=== PATIENT | female | born 1960 | race Caucasian/White ===

== ENCOUNTER 2017-03-19 16:09 | Emergency (ER) | payer OTHER, MEDICARE, MEDICAID ==
[2017-03-19] MEDS ORDERED: KETOROLAC 60 MG/2 ML VIAL IM STA (17:03)
[2017-03-19] MEDS ORDERED: HYDROmorphone 1 MG/ML SYRINGE IM STA (17:03)
[2017-03-19] MEDS ORDERED: HYDROmorphone 1 MG/ML SYRINGE ONE (17:08)
[2017-03-19] MEDS ORDERED: KETOROLAC 60 MG/2 ML VIAL ONE (17:08)
== END 2017-03-19 18:05 | disposition home or self-care (01) ==
DX: S63.641A Sprain of metacarpophalangeal joint of right thumb, initial encounter (principal); S63.642A Sprain of metacarpophalangeal joint of left thumb, initial encounter; S29.012A Strain of muscle and tendon of back wall of thorax, initial encounter; V49.40XA Driver injured in collision with unspecified motor vehicles in traffic accident, initial encounter; F17.200 Nicotine dependence, unspecified, uncomplicated
CPT/HCPCS: 73130; 96372; 99283; 99284; J1170

== ENCOUNTER 2017-06-20 15:41 | Emergency (ER) | payer MEDICARE, MEDICAID ==
[2017-06-20] MEDS ORDERED: diazePAM INJ 5 MG/ML SYRINGE IM STA (16:09)
[2017-06-20] MEDS ORDERED: HYDROmorphone 1 MG/ML SYRINGE IM STA (16:09)
[2017-06-20] MEDS ORDERED: KETOROLAC 60 MG/2 ML VIAL IM STA (16:09)
--- NOTE | 2017-06-20 16:11 | ED Physician Documentation ---
PD HPI BACK PAIN - Stated complaint Stated Complaint: LEG PAIN - Chief complaint Chief Complaint: Ext Problem - History obtained from History obtained from: Patient - History of Present Illness Timing - onset: Other (56-year-old woman with history of sciatica presents with 2 days of pain in the right lower back radiating to the right hip with hyperesthesia in the right leg, but there is no associated saddle anesthesia, bowel or bladder incontinence, or fever.) Review of Systems Constitutional: denies: Fever, Chills Cardiac: denies: Chest pain / pressure, Palpitations Respiratory: denies: Dyspnea, Cough GI: denies: Abdominal Pain, Nausea PD PAST MEDICAL HISTORY - Past Medical History Past Medical History: Yes Cardiovascular: None Respiratory: None Neuro: Headache/migraine, Other Endocrine/Autoimmune: None GI: Chronic diarrhea, Chronic constipation 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 HEENT: None Psych: Anxiety Musculoskeletal: Chronic back pain Derm: None - Past Surgical History Past Surgical History: Yes General: Colonoscopy, EGD Ortho: Carpal Tunnel surgery /PUMP SERVICER HELPER: Tubal ligation HEENT: Tonsil/Adenoidectomy - Present Medications Home Medications: Ambulatory Orders Medication Instructions Recorded Confirmed Simvastatin 20 mg PO QPM 07/15/13 06/16/16 Omeprazole 20 mg PO DAILY 01/04/14 06/16/16 Ondansetron Odt [Zofran] 4 mg TL Q6H PRN #10 tablet 01/01/16 06/16/16 Fluticasone [Flonase] 1 spray INH DAILY 02/13/16 06/16/16 Bacillus Coagulans [Probiotic] 1 each PO 06/16/16 Calcium Carbonate/Vitamin D3 1 each PO 06/16/16 [Calcium 500 + Vit D Caplet] Oxycodone HCl/Acetaminophen 1 - 2 tab PO Q4H PRN #7 tablet 06/16/16 [Percocet 5-325 mg Tablet] Wheat Dextrin [Benefiber] 1 each PO DAILY 06/16/16 06/16/16 Clindamycin [Cleocin] 300 mg PO Q6H 10 Days 09/25/16 Ondansetron HCl [Zofran] 4 mg PO Q6H PRN #10 tablet 09/25/16 Oxycodone HCl/Acetaminophen 1 - 2 tab PO Q4H PRN #15 tablet 09/25/16 [Percocet 5-325 mg Tablet] Sumatriptan Succinate [Imitrex] 50 mg PO DAILY PRN #10 tablet 09/25/16 Diazepam 5 mg PO TID PRN #15 tablet 03/19/17 Naproxen [Naprosyn] 500 mg PO BID #20 tablet 03/19/17 Oxycodone HCl/Acetaminophen 1 each PO Q6H PRN #20 tablet 03/19/17 [Percocet 5-325 mg Tablet] Oxycodone HCl/Acetaminophen 1 - 2 tab PO Q4H PRN #15 tablet 06/20/17 [Percocet 5-325 mg Tablet] diazePAM [Valium] 5 mg PO TID PRN #15 tablet 06/20/17 predniSONE [Deltasone] 60 mg PO DAILY 5 Days 06/20/17 - Allergies Allergies/Adverse Reactions: Allergies Allergy/AdvReac Type Severity Reaction Status Date / Time Penicillins Allergy Severe throat Verified 06/20/17 15:56 swelling - Social History Does the pt smoke?: Yes Smoking Status: Current every day smoker Does the pt drink ETOH?: No Does the pt have substance abuse?: No - Immunizations Immunizations are current?: Yes - POLST Patient has POLST: No PD ED PE NORMAL - Vitals Vital signs reviewed: Yes - General General: Alert and oriented X 3, Other (Uncomfortable, most comfortable in a left lateral decubitus position with left knee and hip flexed.) - Abdomen Abdomen: Normal bowel sounds, Soft, Non tender - Back Back: Other (Tender in the right sciatic notch) - Derm Derm: Normal color, Warm and dry - Extremities Extremities: Other (She has diminished sensation over the anterior right thigh and medial right calf with hyperesthesia in the lateral right calf. She has diminished but not absent right patellar reflex.) - Neuro Neuro: Alert and oriented X 3, Normal speech - Psych Psych: Normal mood, Normal affect Results - Vitals Vitals: Vital Signs - 24 hr 06/20/17 15:53 Temperature 36.9 C Heart Rate 75 Respiratory 18 Rate Blood Pressure 105/74 O2 Saturation 99 Oxygen O2 Source Room air PD MEDICAL DECISION MAKING - ED course ED course: 56-year-old woman presents with classic signs and symptoms of lumbar radiculopathy/sciatica without evidence of central cord compromise or infection. Departure - Departure Disposition: 01 Home, Self Care Clinical Impression: Back pain of lumbar region with sciatica Condition: Good Record reviewed to determine appropriate education?: Yes Instructions: ED Sciatica Prescriptions: predniSONE [Deltasone] 60 mg PO DAILY 5 Days Oxycodone HCl/Acetaminophen [Percocet 5-325 mg Tablet] 1 - 2 tab PO Q4H PRN #15 tablet PRN Reason: Pain diazePAM [Valium] 5 mg PO TID PRN #15 tablet PRN Reason: Spasms Comments: Call your doctor to arrange a follow-up appointment, make the next available appointment. In the interim, return anytime if worse or if new symptoms develop. Do not drink or drive while taking narcotic pain medication. Note that many narcotic pain relievers also contain Tylenol/acetaminophen. Please ensure that your total dose of acetaminophen from all sources does not exceed 3 g (3000 mg) per day. You may get constipated while on this medication. Take a stool softener such as Colace twice a day while you are on it. Also add an meul-[id number] laxative such as senna or MiraLAX on any day that you do not have a bowel movement. If you received a narcotic pain medication or sedative while in the emergency department, do not drive for the next 24 hours.
[2017-06-20] MEDS ORDERED: HYDROmorphone 1 MG/ML SYRINGE ONE (16:21)
[2017-06-20] MEDS ORDERED: KETOROLAC 60 MG/2 ML VIAL ONE (16:22)
[2017-06-20] MEDS ORDERED: diazePAM INJ 5 MG/ML SYRINGE ONE (16:22)
[2017-06-20 16:47] VITALS: BP 113/70
== END 2017-06-20 16:50 | disposition home or self-care (01) ==
LOC: ED 15:41
DX: M54.41 Lumbago with sciatica, right side (principal); F17.200 Nicotine dependence, unspecified, uncomplicated; G89.29 Other chronic pain
CPT/HCPCS: 96372; 99283; J1170

== ENCOUNTER 2017-11-13 12:21 | Outpatient (CLI) | payer MEDICARE, MEDICAID | END 2017-11-13 12:22 | disposition home or self-care (01) | LOC: EMS 12:21 | PROVIDERS: ATTEND Surgery | DX: R10.9 Unspecified abdominal pain (principal) | CPT/HCPCS: A0425; A0429 ==

== ENCOUNTER 2017-11-13 12:43 | Emergency (ER) | payer MEDICARE, MEDICAID ==
--- NOTE | 2017-11-13 13:09 | ED Physician Documentation ---
PD HPI URI - Stated complaint Stated Complaint: SICK - Chief complaint Chief Complaint: General - History obtained from History obtained from: Patient - History of Present Illness Timing - onset: How many weeks ago (1) Timing duration: Weeks (1) Timing details: Gradual onset, Still present Associated symptoms: No: Fever, Chills Contributing factors: No: Sick contact Improves by: No: Rest, Medication Similar symptoms before: Has not had sx before Recently seen: Not recently seen Review of Systems Constitutional: reports: Fever, Chills, Myalgias Nose: reports: Congestion. 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 : None HEENT: None Psych: Anxiety Musculoskeletal: Chronic back pain Derm: None - Past Surgical History Past Surgical History: Yes General: Colonoscopy, EGD Ortho: Carpal Tunnel surgery /RN CLINICAL DOCUMENTATION: Tubal ligation HEENT: Tonsil/Adenoidectomy - Present Medications Home Medications: Ambulatory Orders Medication Instructions Recorded Confirmed Simvastatin 20 mg PO QPM 07/15/13 11/13/17 Fluticasone [Flonase] 1 spray INH DAILY 02/13/16 11/13/17 Bacillus Coagulans [Probiotic] 1 each PO DAILY 06/16/16 11/13/17 Calcium Carbonate/Vitamin D3 1 each PO 06/16/16 [Calcium 500 + Vit D Caplet] Wheat Dextrin [Benefiber] 1 each PO DAILY 06/16/16 11/13/17 Gabapentin [Gabapentin] 300 mg PO BID 06/20/17 11/13/17 Tizanidine HCl [Tizanidine HCl] 4 mg PO DAILY 06/20/17 11/13/17 Albuterol Sulf [Ventolin Hfa 1 - 2 puffs INH Q4HR PRN #1 inhaler 11/13/17 Inhaler] Benzonatate [Tessalon] 100 mg PO TID PRN #25 capsule 11/13/17 Dexamethasone [Decadron] 4 mg PO DAILY #5 tablet 11/13/17 Doxycycline Monohydrate 100 mg PO BID #14 tablet 11/13/17 Oxycodone HCl/Acetaminophen 1 each PO Q6H PRN #15 tablet 11/13/17 [Percocet 5-325 mg Tablet] diazePAM [Diazepam] 5 mg PO DAILY 11/13/17 11/13/17 - Allergies Allergies/Adverse Reactions: Allergies Allergy/AdvReac Type Severity Reaction Status Date / Time Penicillins Allergy Severe throat Verified 11/13/17 13:12 swelling - Social History Does the pt smoke?: Yes Smoking Status: Current every day smoker Does the pt drink ETOH?: No Does the pt have substance abuse?: No - Immunizations Immunizations are current?: Yes - POLST Patient has POLST: No PD ED PE NORMAL - Vitals Vital signs reviewed: Yes - General General: Alert and oriented X 3, Well developed/nourished - HEENT HEENT: Pharynx benign - Neck Neck: Supple, no meningeal sign, No adenopathy - Cardiac Cardiac: RRR, No murmur - Respiratory Respiratory: Clear bilaterally - Abdomen Abdomen: Soft, Non tender - Back Back: No CVA TTP - Derm Derm: Normal color, Warm and dry - Extremities Extremities: No tenderness to palpate, Normal ROM s pain - Neuro Neuro: Alert and oriented X 3, No motor deficit, Normal speech Results - Vitals Vitals: Vital Signs - 24 hr 11/13/17 11/13/17 11/13/17 12:45 13:55 15:30 Temperature 36.7 C 36.5 C Heart Rate 95 57 L 55 L Respiratory 16 18 16 Rate Blood Pressure 122/62 117/75 O2 Saturation 99 97 Oxygen O2 Source Room air - Labs Labs: Microbiology 11/13/17 14:38 Urine Culture - Preliminary Urine,Clean Catch Escherichia Coli Laboratory Tests 11/13/17 14:38 Urine Color YELLOW Urine Clarity SL. CLOUDY Urine pH 7.0 Ur Specific [place] 1.015 Urine Protein NEGATIVE Urine Glucose (UA) NEGATIVE Urine Ketones NEGATIVE Urine Occult Blood NEGATIVE Urine Nitrite POSITIVE H Urine Bilirubin NEGATIVE Urine Urobilinogen 0.2 (NORMAL) Ur Leukocyte Esterase NEGATIVE Urine RBC None Seen Urine WBC 6-10 H Ur Squamous Epith Cells NONE SEEN Urine Bacteria Many H Ur Microscopic Review INDICATED Urine Culture Comments INDICATED PD MEDICAL DECISION MAKING - ED course Complexity details: considered differential, d/w patient Departure - Departure Disposition: 01 Home, Self Care Clinical Impression: Bronchitis, Chest pain, pleuritic UTI (urinary tract infection) Qualifiers: Urinary tract infection type: acute cystitis Hematuria presence: without hematuria Qualified Code(s): N30.00 - Acute cystitis without hematuria Condition: Stable Record reviewed to determine appropriate education?: Yes Instructions: ED Bronchitis Asthmatic, ED UTI Cystitis Female Follow-Up: Forest Poe MD [Primary Care Provider] - Prescriptions: Albuterol Sulf [Ventolin Hfa Inhaler] 1 - 2 puffs INH Q4HR PRN #1 inhaler PRN Reason: Shortness Of Air/Wheezing Benzonatate [Tessalon] 100 mg PO TID PRN #25 capsule PRN Reason: Cough Dexamethasone [Decadron] 4 mg PO DAILY #5 tablet Doxycycline Monohydrate 100 mg PO BID #14 tablet Oxycodone HCl/Acetaminophen [Percocet 5-325 mg Tablet] 1 each PO Q6H PRN #15 tablet PRN Reason: Pain Comments: Albuterol inhaler 2 puffs 4 times daily for 1-2 weeks. Tessalon for cough; Percocet for cough and pain as needed. Decadron for bronchial inflammation. Doxycycline antibiotic to help with bronchitis and UTI. Recheck if not improved over the next few days. Discharge Date/Time: 11/13/17 15:32
[2017-11-13] MEDS ORDERED: oxyCOD/ACETAMIN 5 MG/325 MG TABLET PO STA (13:29)
[2017-11-13] MEDS ORDERED: ALBUTEROL NEB 2.5 MG/3 ML INH STA (13:30)
[2017-11-13] MEDS ORDERED: DEXAMETHASONE 10 MG/ML VIAL PO STA (13:31)
[2017-11-13] MEDS ORDERED: BENZONATATE 100 MG CAPSULE PO STA (13:33)
[2017-11-13] MEDS ORDERED: CHERRY SYRUP 10 ML UDC PO ONE (14:09)
--- NOTE | 2017-11-13 14:10 | XRAY Preliminary Report ---
Exam: XR CHEST 2 VIEW PA/LAT IMPRESSION: Negative 2-view chest radiography. [facility] SITE ID: [id number]
--- NOTE | 2017-11-13 14:12 | XRAY Report ---
EXAM: CHEST RADIOGRAPHY EXAM DATE: 11/13/2017 01:56 PM. CLINICAL HISTORY: Cough and wheezing for a week. COMPARISON: Frontal chest 08/22/2014. TECHNIQUE: 2 views. FINDINGS: Lungs/Pleura: No focal opacities evident. No pleural effusion. No pneumothorax. Normal volumes. Mediastinum: Heart and mediastinal contours are unremarkable. IMPRESSION: Negative 2-view chest radiography. [facility] Referring Provider Line: [phone] SITE ID: [id number]
[2017-11-13 14:50] LABS: BILIRUBIN,URINE NEGATIVE (NEGATIVE)
[2017-11-13 14:51] LABS: UA w/ MICROSCOPIC CHARGE YES
[2017-11-13 15:01] LABS: UR CULTURE IF IND INDICATED
[2017-11-13 15:31] VITALS: BP 117/75
== END 2017-11-13 15:32 | disposition home or self-care (01) ==
LOC: EDUNIT# → ED 12:43
DX: J40 Bronchitis, not specified as acute or chronic (principal); N30.00 Acute cystitis without hematuria; F17.200 Nicotine dependence, unspecified, uncomplicated
CPT/HCPCS: 71020; 81001; 87086; 87181; 94640; 99283; A9270; J7613; 81003

== ENCOUNTER 2017-11-23 14:58 | Emergency (ER) | payer MEDICARE, MEDICAID ==
[2017-11-23 16:35] LABS: BASOPHILS # (AUTO) 0.1 10^3/uL (0.0-0.1); EOSINOPHILS # (AUTO) 0.1 10^3/uL (0.0-0.7); HGB - HEMOGLOBIN 14.9 g/dL (12.0-16.0); LYMPHOCYTES # (AUTO) 2.7 10^3/uL (1.5-3.5); LYMPHOCYTES % (AUTO) 31.3 %; MEAN CORPUSCULAR HEMOGLOBIN 30.4 pg (27.0-31.0); MEAN CORPUSCULAR HGB CONC 33.2 g/dL (32.0-36.0); MEAN CORPUSCULAR VOLUME 91.6 fL (81.0-99.0); MONOCYTES # (AUTO) 0.6 10^3/uL (0.0-1.0); MONOCYTES % (AUTO) 7.3 %; NEUTROPHILS # (AUTO) 5.2 10^3/uL (1.5-6.6); NEUTROPHILS % (AUTO) 59.4 %; PLT - PLATELET COUNT 231 10^3/uL (130-450); RED BLOOD COUNT 4.89 10^6/uL (4.20-5.40); RED CELL DISTRIBUTION WIDTH 14.3 % (12.0-15.0); WHITE BLOOD COUNT 8.7 x10^3/uL (4.8-10.8)
[2017-11-23 16:39] LABS: ALBUMIN 4.2 g/dL (3.2-5.5); ALBUMIN/GLOBULIN RATIO 1.2 (1.0-2.2); BILIRUBIN,TOTAL 0.6 mg/dL (0.2-1.0); CALCIUM 9.2 mg/dL (8.5-10.3); CREATININE 0.8 mg/dL (0.4-1.0); TOTAL PROTEIN 7.7 g/dL (6.7-8.2)
[2017-11-23 17:36] LABS: BILIRUBIN,URINE NEGATIVE (NEGATIVE); GLUCOSE, URINE (UA) NEGATIVE (NEGATIVE); KETONES,URINE (UA) NEGATIVE (NEGATIVE); LEUKOCYTE ESTERASE, URINE NEGATIVE (NEGATIVE); NITRITE,URINE NEGATIVE (NEGATIVE); OCCULT BLOOD,URINE NEGATIVE (NEGATIVE); PH,URINE 6.5 PH (5.0-7.5); PROTEIN,URINE NEGATIVE (NEGATIVE); UROBILINOGEN,URINE 0.2 (NORMAL) E.U./dL (NORMAL)
[2017-11-23 17:37] LABS: CLARITY,URINE CLEAR (CLEAR)
--- NOTE | 2017-11-23 17:49 | ED Physician Documentation ---
PD HPI ABD PAIN - Stated complaint Stated Complaint: ABD PX, BACK PX, FEMALE - Chief complaint Chief Complaint: Abd Pain - History obtained from History obtained from: Patient - History of Present Illness Timing - onset: How many days ago (2) Timing - duration: Days (2) Timing - details: Gradual onset Pain level max: 9 Pain level now: 6 Quality: Aching, Pain Location: RLQ Radiation: Right flank Improved by: Laying still Worsened by: Moving, Palpation Associated symptoms: Nausea. No: Fever, Vomiting, Hematemesis, Diarrhea, Constipation, Melena, Hematochezia, Dysuria, Hematuria, Chest pain, Dizzy, Vaginal dc Similar symptoms before: Diagnosis (states recently diagnosed with UTI and finished abx 4 days ago) Recently seen: Other (called PCP and told to come here for eval.) Review of Systems Constitutional: denies: Fever, Chills Ears: denies: Ear pain Nose: denies: Rhinorrhea / runny nose, Congestion Throat: denies: Sore throat Cardiac: denies: Chest pain / pressure Respiratory: denies: Cough GI: denies: Constipation, Diarrhea, Hematemesis, Bloody / black stool : denies: Dysuria, Frequency, Hesitancy Skin: denies: Rash Musculoskeletal: denies: Neck pain, Back pain PD PAST MEDICAL HISTORY - Past Medical History Cardiovascular: None Respiratory: None Neuro: Headache/migraine, Other Endocrine/Autoimmune: None GI: Chronic diarrhea, Chronic constipation 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 HEENT: None Psych: Anxiety Musculoskeletal: Chronic back pain Derm: None - Past Surgical History Past Surgical History: Yes General: Colonoscopy, EGD Ortho: Carpal Tunnel surgery /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: Tubal ligation HEENT: Tonsil/Adenoidectomy - Present Medications Home Medications: Ambulatory Orders Medication Instructions Recorded Confirmed Simvastatin 20 mg PO QPM 07/15/13 11/23/17 Fluticasone [Flonase] 1 spray INH DAILY 02/13/16 11/23/17 Bacillus Coagulans [Probiotic] 1 each PO DAILY 06/16/16 11/23/17 Calcium Carbonate/Vitamin D3 1 each PO 06/16/16 [Calcium 500 + Vit D Caplet] Wheat Dextrin [Benefiber] 1 each PO DAILY 06/16/16 11/23/17 Gabapentin [Gabapentin] 300 mg PO BID 06/20/17 11/23/17 Tizanidine HCl [Tizanidine HCl] 4 mg PO DAILY 06/20/17 11/23/17 Albuterol Sulf [Ventolin Hfa 1 - 2 puffs INH Q4HR PRN #1 inhaler 11/13/17 Inhaler] Benzonatate [Tessalon] 100 mg PO TID PRN #25 capsule 11/13/17 11/23/17 Dexamethasone [Decadron] 4 mg PO DAILY #5 tablet 11/13/17 11/23/17 Doxycycline Monohydrate 100 mg PO BID #14 tablet 11/13/17 11/23/17 Oxycodone HCl/Acetaminophen 1 each PO Q6H PRN #15 tablet 11/13/17 11/23/17 [Percocet 5-325 mg Tablet] diazePAM [Diazepam] 5 mg PO DAILY 11/13/17 11/23/17 Dicyclomine [Bentyl] 10 mg PO QID PRN #30 capsule 11/23/17 - Allergies Allergies/Adverse Reactions: Allergies Allergy/AdvReac Type Severity Reaction Status Date / Time Penicillins Allergy Severe throat Verified 11/13/17 13:12 swelling - Social History Does the pt smoke?: Yes Smoking Status: Current every day smoker Does the pt drink ETOH?: No Does the pt have substance abuse?: No - Immunizations Immunizations are current?: Yes - POLST Patient has POLST: No PD ED PE NORMAL - Vitals Vital signs reviewed: Yes - General General: Alert and oriented X 3, No acute distress - HEENT HEENT: PERRL, Moist mucous membranes, Pharynx benign - Neck Neck: Supple, no meningeal sign - Cardiac Cardiac: RRR, Strong equal pulses - Respiratory Respiratory: No respiratory distress, Clear bilaterally - Abdomen Abdomen: Soft, Non distended, Other (TTP RLQ at McBurney's point, no peritoneal signs.) - Back Back: Other (R CVAT) - Derm Derm: Warm and dry - Neuro Neuro: Alert and oriented X 3 - Psych Psych: Normal mood, Normal affect Results - Vitals Vitals: Vital Signs - 24 hr 11/23/17 11/23/17 11/23/17 15:15 17:22 19:50 Temperature 36.2 C L Heart Rate 67 48 L 53 L Respiratory 20 20 18 Rate Blood Pressure 97/69 139/69 H 137/65 H O2 Saturation 100 100 100 Oxygen O2 Source Room air - Labs Labs: Laboratory Tests 11/23/17 11/23/17 11/23/17 16:20 16:20 17:20 WBC 8.7 RBC 4.89 Hgb 14.9 Hct 44.8 MCV 91.6 MCH 30.4 MCHC 33.2 RDW 14.3 Plt Count 231 MPV 10.0 Neut # 5.2 Lymph # 2.7 [place] # 0.6 Eos # 0.1 Baso # 0.1 Absolute Nucleated RBC 0.00 Nucleated RBC % 0.0 Sodium 140 Potassium 3.8 Chloride 104 Carbon Dioxide 29 Anion Gap 7.0 BUN 10 Creatinine 0.8 Estimated GFR (MDRD) 74 L Glucose 97 Calcium 9.2 Total Bilirubin 0.6 AST 13 ALT 11 Alkaline Phosphatase 90 Total Protein 7.7 Albumin 4.2 Globulin 3.5 Albumin/Globulin Ratio 1.2 Lipase 44 Urine Color YELLOW Urine Clarity CLEAR Urine pH 6.5 Ur Specific [place] <=1.005 Urine Protein NEGATIVE Urine Glucose (UA) NEGATIVE Urine Ketones NEGATIVE Urine Occult Blood NEGATIVE Urine Nitrite NEGATIVE Urine Bilirubin NEGATIVE Urine Urobilinogen 0.2 (NORMAL) Ur Leukocyte Esterase NEGATIVE Ur Microscopic Review NOT INDICATED Urine Culture Comments NOT INDICATED - Rads (name of study) CT abdomen pelvis Radiology: Prelim report reviewed, EMP read contemporaneously, See rad report ( No acute abnormality) PD MEDICAL DECISION MAKING - ED course Complexity details: reviewed old records, reviewed results, re-evaluated patient , considered differential, d/w patient ED course: Patient is a 56-year-old female who presents to the emergency department with abdominal pain of unclear etiology. No acute findings on CT scan or laboratory testing. We will continue supportive care and follow-up with her doctor. Abdomen is soft, nontender nondistended on serial exam. No evidence of appendicitis, pyelonephritis, mesenteric ischemia. Patient counseled regarding signs and symptoms for which I believe and urgent re-evaluation would be necessary. Patient with good understanding of and agreement to plan and is comfortable going home at this time This document was made in part using voice recognition software. While efforts are made to proofread this document, sound alike and grammatical errors may occur. Departure - Departure Disposition: 01 Home, Self Care Clinical Impression: Abdominal pain Condition: Good Instructions: ED Abdominal Pain Unkn Cause Follow-Up: Forest Poe MD [Primary Care Provider] - Within 1 week Prescriptions: Dicyclomine [Bentyl] 10 mg PO QID PRN #30 capsule PRN Reason: Abdominal Pain Comments: Return if you worsen. the cause of your symptoms is unclear today. Discharge Date/Time: 11/23/17 20:41
[2017-11-23] MEDS ORDERED: IOPAMIDOL-300 100 ML VIAL ONE (18:09)
[2017-11-23] MEDS ORDERED: IOPAMIDOL-300 100 ML VIAL IVP ONE (19:26)
[2017-11-23] MEDS ORDERED: KETOROLAC 60 MG/2 ML VIAL IVP STA (19:44)
--- NOTE | 2017-11-23 19:46 | CT Report ---
EXAM: CT ABDOMEN AND PELVIS EXAM DATE: 11/23/2017 07:30 PM. CLINICAL HISTORY: RLQ abd pain x 2 days. COMPARISONS: 06/16/2016. TECHNIQUE: Routine helical CT imaging was performed through the abdomen and pelvis. IV contrast: 100M L ISOVUE 300. Enteric contrast: No. Reconstructions: Coronal and sagittal. In accordance with CT protocol optimization, one or more of the following dose reduction techniques w ere utilized for this exam: automated exposure control, adjustment of mA and/or KV based on patient s ize, or use of iterative reconstructive technique. FINDINGS: Lung Bases: Unremarkable. Liver: Normal. No masses. Gallbladder/Bile Ducts: Unremarkable. Spleen: Normal. Pancreas: Normal. Adrenal Glands: Normal. Kidneys: Normal. No masses or hydronephrosis. Peritoneal Cavity/Bowel: Normal. No free fluid, free air or adenopathy. No masses or acute inflammato ry process. The appendix is well visualized and normal. Pelvic Organs: Normal. The bladder and visualized pelvic organs are within normal limits. Vasculature: No aneurysms or other significant abnormality. Bones: No significant abnormality. Other: None. IMPRESSION: Normal abdomen and pelvis CT. [facility] Referring Provider Line: [phone] SITE ID: [id number]
[2017-11-23 19:51] VITALS: BP 137/65
== END 2017-11-23 20:41 | disposition home or self-care (01) ==
LOC: ED 14:58
DX: R10.9 Unspecified abdominal pain (principal); F17.200 Nicotine dependence, unspecified, uncomplicated
CPT/HCPCS: 36415; 74177; 80053; 81003; 83690; 85025; 96374; 99283; 99284; Q9967; 81001; 87086

== ENCOUNTER 2018-01-25 15:34 | Emergency (ER) | payer MEDICARE, MEDICAID ==
--- NOTE | 2018-01-25 16:56 | ED Physician Documentation ---
PD HPI SKIN - Stated complaint Stated Complaint: LUMP LT BACK SIDE - Chief complaint Chief Complaint: General - History obtained from History obtained from: Patient - History of Present Illness Timing - onset: How many days ago (2) Timing - duration: Days (2) Timing - details: Gradual onset, Still present Location: Back Quality / character: Painful, Discolored, Raised, Swelling Associated symptoms: No: Fever, Myalgias, Joint pain, Headache, Facial swelling Contributing factors: Other (exposed to a freind with MRSA) Similar symptoms before: Has not had sx before Recently seen: Not recently seen - Additional information Additional information: 57-year-old female has developed a small sore on her back that is very painful. She has a neighbor who has developed MRSA and she is concerned about MRSA. She has not had this previously. She notices a small red bump. She has not had fever or syncope. Review of Systems Constitutional: denies: Fever Eyes: denies: Decreased vision Ears: denies: Ear pain Nose: denies: Congestion Throat: denies: Sore throat Cardiac: denies: Chest pain / pressure Respiratory: denies: Cough GI: denies: Vomiting : denies: Dysuria, Frequency Skin: reports: Lesions. 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 HEENT: None Psych: Anxiety Musculoskeletal: Chronic back pain Derm: None - Past Surgical History Past Surgical History: Yes General: Colonoscopy, EGD Ortho: Carpal Tunnel surgery /ORTHO NURSE: Tubal ligation HEENT: Tonsil/Adenoidectomy - Present Medications Home Medications: Ambulatory Orders Medication Instructions Recorded Confirmed Simvastatin 20 mg PO QPM 07/15/13 01/25/18 Fluticasone [Flonase] 1 spray INH DAILY 02/13/16 01/25/18 Bacillus Coagulans [Probiotic] 1 each PO DAILY 06/16/16 01/25/18 Wheat Dextrin [Benefiber] 1 each PO DAILY 06/16/16 01/25/18 Gabapentin [Gabapentin] 300 mg PO BID 06/20/17 01/25/18 Tizanidine HCl [Tizanidine HCl] 4 mg PO DAILY 06/20/17 01/25/18 Albuterol Sulf [Ventolin Hfa 1 - 2 puffs INH Q4HR PRN #1 inhaler 11/13/17 Inhaler] diazePAM [Diazepam] 5 mg PO DAILY 11/13/17 01/25/18 Mupirocin Calcium [Bactroban] 1 gm TP BID #15 cream..g. 01/25/18 Sulfamethoxazole/Trimethoprim 1 each PO BID #10 tablet 01/25/18 [Sulfamethoxazole-Tmp Ds Tablet] - Allergies Allergies/Adverse Reactions: Allergies Allergy/AdvReac Type Severity Reaction Status Date / Time Penicillins Allergy Severe Hives Verified 01/25/18 16:33 - Social History Does the pt smoke?: Yes Smoking Status: Current every day smoker Does the pt drink ETOH?: No Does the pt have substance abuse?: No - Immunizations Immunizations are current?: Yes - POLST Patient has POLST: No PD ED PE NORMAL - Vitals Vital signs reviewed: Yes (Normal) - General General: Alert and oriented X 3, No acute distress, Well developed/nourished - HEENT HEENT: Atraumatic, PERRL, EOMI - Respiratory Respiratory: No respiratory distress - Back Back: No CVA TTP, No spinal TTP, Other (There is a solitary erythematous papule over the left lower lumbar area. There is not fluctuant it is tender and firm.) - Derm Derm: Normal color, Warm and dry, No rash - Extremities Extremities: No deformity, No edema - Neuro Neuro: No motor deficit, No sensory deficit Eye Opening: Spontaneous Motor: Obeys Commands Verbal: Oriented GCS Score: 15 - Psych Psych: Normal mood, Normal affect Results - Vitals Vitals: Vital Signs - 24 hr 01/25/18 15:41 Temperature 37.2 C Heart Rate 73 Respiratory 18 Rate Blood Pressure 110/71 O2 Saturation 97 Oxygen O2 Source Room air PD MEDICAL DECISION MAKING - ED course Complexity details: considered differential, d/w patient ED course: 57-year-old female with a small sore on her back does look like a staph infection we will place on both you by bactroban and Septra. Departure - Departure Disposition: 01 Home, Self Care Clinical Impression: Exposure to MRSA Condition: Stable Instructions: ED Staph Infec Abx Tx Only Follow-Up: Forest Poe MD [Primary Care Provider] - Prescriptions: Mupirocin Calcium [Bactroban] 1 gm TP BID #15 cream..g. Sulfamethoxazole/Trimethoprim [Sulfamethoxazole-Tmp Ds Tablet] 1 each PO BID # 10 tablet
[2018-01-25 17:25] VITALS: BP 108/70
== END 2018-01-25 17:23 | disposition home or self-care (01) ==
LOC: ED 15:34
DX: R23.8 Other skin changes (principal); Z20.818 Contact with and (suspected) exposure to other bacterial communicable diseases; F17.200 Nicotine dependence, unspecified, uncomplicated
CPT/HCPCS: 99283

== ENCOUNTER 2018-02-11 13:05 | Outpatient (CLI) | payer MEDICARE, MEDICAID | END 2018-02-11 13:06 | disposition critical access hospital (66) | LOC: EMS 13:05 | PROVIDERS: ATTEND Surgery | DX: M54.2 Cervicalgia (principal); R51 Headache | CPT/HCPCS: A0425; A0429 ==

== ENCOUNTER 2018-02-11 13:27 | Emergency (ER) | payer MEDICARE, MEDICAID ==
[2018-02-11] MEDS ORDERED: HYDROmorphone 1 MG/ML CARPUJECT IVP STA (13:35)
[2018-02-11] MEDS ORDERED: SODIUM CHLORIDE 0.9% 1,000 ML IV ONE (13:35)
[2018-02-11] MEDS ORDERED: METOCLOPRAMIDE 10 MG/2 ML VIAL IVP STA (13:36)
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
[2018-02-11 13:53] LABS: BASOPHILS # (AUTO) 0.1 10^3/uL (0.0-0.1); BASOPHILS % (AUTO) 0.7 %; EOSINOPHILS # (AUTO) 0.1 10^3/uL (0.0-0.7); EOSINOPHILS % (AUTO) 0.6 %; HGB - HEMOGLOBIN 15.8 g/dL (12.0-16.0); LYMPHOCYTES # (AUTO) 3.2 10^3/uL (1.5-3.5); LYMPHOCYTES % (AUTO) 32.1 %; MEAN CORPUSCULAR HEMOGLOBIN 30.3 pg (27.0-31.0); MEAN CORPUSCULAR HGB CONC 33.6 g/dL (32.0-36.0); MEAN CORPUSCULAR VOLUME 90.2 fL (81.0-99.0); MEAN PLATELET VOLUME 8.4 fL (7.9-10.8); MONOCYTES # (AUTO) 0.5 10^3/uL (0.0-1.0); MONOCYTES % (AUTO) 4.9 %; NEUTROPHILS # (AUTO) 6.2 10^3/uL (1.5-6.6); NEUTROPHILS % (AUTO) 61.7 %; PLT - PLATELET COUNT 236 10^3/uL (130-450); RED BLOOD COUNT 5.23 10^6/uL (4.20-5.40); RED CELL DISTRIBUTION WIDTH 14.6 % (12.0-15.0); WHITE BLOOD COUNT 10.1 x10^3/uL (4.8-10.8)
[2018-02-11 14:06] LABS: ALBUMIN 4.6 g/dL (3.2-5.5); ALBUMIN/GLOBULIN RATIO 1.3 (1.0-2.2); BILIRUBIN,TOTAL 0.5 mg/dL (0.2-1.0); CALCIUM 9.4 mg/dL (8.5-10.3); CREATININE 0.9 mg/dL (0.4-1.0); TOTAL PROTEIN 8.1 g/dL (6.7-8.2)
[2018-02-11 14:55] VITALS: BP 134/86
[2018-02-11] MEDS ORDERED: ONDANSETRON 4 MG/2 ML VIAL IVP STA (14:56)
== END 2018-02-11 15:50 | disposition home or self-care (01) ==
LOC: EDUNIT# → ED 13:27
DX: M54.2 Cervicalgia (principal); R51 Headache; R11.2 Nausea with vomiting, unspecified; F17.200 Nicotine dependence, unspecified, uncomplicated
CPT/HCPCS: 36415; 80053; 83690; 85025; 96361; 96374; 96375; 99283; 99284; J1170; J2765

== ENCOUNTER 2018-05-15 11:13 | Emergency (ER) | END 2018-05-15 13:40 | disposition home or self-care (01) ==

== ENCOUNTER 2018-09-16 15:04 | Emergency (ER) | payer MEDICARE, MEDICAID ==
[2018-09-16 15:11] VITALS: BP 113/79
--- NOTE | 2018-09-16 15:45 | ED Physician Documentation ---
History of Present Illness - Stated complaint Stated Complaint: HAND PX - Chief complaint Chief Complaint: Ext Problem - History obtained from History obtained from: Patient - History of Present Illness Timing: Chronic Pain level max: 6 Pain level now: 6 Improved by: nothing Worsened by: movement, palpation - Additonal information Additional information: Patient is a 57-year-old female with a long-standing history of neck and arm pain bilaterally. She states that she has shooting pain down both arms from her antecubital fossa is down to her fingertips. Described as burning. Is supposed to be taking gabapentin but states she only takes this when she needs it. She has not taken it for this. She has had no recurrent injury. No fevers. No headaches. She is currently undergoing physical therapy for her chronic pain. 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 HEENT: None Psych: Anxiety Musculoskeletal: Chronic back pain Derm: None - Past Surgical History Past Surgical History: Yes General: Colonoscopy, EGD Ortho: Carpal Tunnel surgery /MACHINE CLEANER: Tubal ligation HEENT: Tonsil/Adenoidectomy - Present Medications Home Medications: Ambulatory Orders Medication Instructions Recorded Confirmed Simvastatin 20 mg PO QPM 07/15/13 01/25/18 Fluticasone [Flonase] 1 spray INH DAILY 02/13/16 01/25/18 Bacillus Coagulans [Probiotic] 1 each PO DAILY 06/16/16 01/25/18 Wheat Dextrin [Benefiber] 1 each PO DAILY 06/16/16 01/25/18 Gabapentin 300 mg PO BID 06/20/17 01/25/18 Tizanidine HCl 4 mg PO DAILY 06/20/17 01/25/18 Albuterol Sulf [Ventolin Hfa 1 - 2 puffs INH Q4HR PRN #1 inhaler 11/13/17 01/25/18 Inhaler] diazePAM [Diazepam] 5 mg PO DAILY 11/13/17 01/25/18 Mupirocin Calcium [Bactroban] 1 gm TP BID #15 cream..g. 01/25/18 Sulfamethoxazole/Trimethoprim 1 each PO BID #10 tablet 01/25/18 [Sulfamethoxazole-Tmp Ds Tablet] Oxycodone HCl/Acetaminophen 1 - 2 tab PO Q4H PRN #7 tablet 02/11/18 [Percocet 5-325 mg Tablet] Ciprofloxacin HCl [Cipro] 500 mg PO BID #14 tablet 05/15/18 Oxycodone HCl/Acetaminophen 1 - 2 tab PO Q4H PRN #15 tablet 05/15/18 [Percocet 5-325 mg Tablet] Oxycodone HCl/Acetaminophen 1 - 2 each PO Q6H PRN #8 tablet 09/16/18 [Percocet 5-325 mg Tablet] - Allergies Allergies/Adverse Reactions: Allergies Allergy/AdvReac Type Severity Reaction Status Date / Time Penicillins Allergy Severe Hives Verified 05/15/18 11:24 - Social History Does the pt smoke?: Yes Smoking Status: Current every day smoker Does the pt drink ETOH?: No Does the pt have substance abuse?: No - Immunizations Immunizations are current?: Yes - POLST Patient has POLST: No PD ED PE NORMAL - Vitals Vital signs reviewed: Yes - General General: Alert and oriented X 3, No acute distress - HEENT HEENT: Moist mucous membranes - Neck Neck: Supple, no meningeal sign - Cardiac Cardiac: RRR, Strong equal pulses - Respiratory Respiratory: No respiratory distress, Clear bilaterally - Abdomen Abdomen: Soft, Non tender, Non distended - Derm Derm: Warm and dry - Extremities Extremities: Other (Bilateral upper extremities are neurovascularly intact. Full range of motion present. No bony tenderness. Brisk cap refill bilaterally. No neurological deficits.) - Neuro Neuro: Alert and oriented X 3, No motor deficit, No sensory deficit - Psych Psych: Normal mood, Normal affect Results - Vitals Vitals: Vital Signs - 24 hr 09/16/18 15:07 Temperature 36.4 C L Heart Rate 100 Respiratory 18 Rate Blood Pressure 113/79 O2 Saturation 97 Oxygen O2 Source Room air PD MEDICAL DECISION MAKING - ED course Complexity details: considered differential, d/w patient ED course: Patient is a 57-year-old female with chronic neuropathic pain. Will prescribe a small amount of pain medication and encouraged her to restart her gabapentin as previously directed. We will have her follow-up with her doctor for further care. No evidence of DVT, arterial occlusion or vascular insufficiency. Patient counseled regarding signs and symptoms for which I believe and urgent re-evaluation would be necessary. Patient with good understanding of and agreement to plan and is comfortable going home at this time This document was made in part using voice recognition software. While efforts are made to proofread this document, sound alike and grammatical errors may occur. Departure - Departure Disposition: 01 Home, Self Care Clinical Impression: Neuropathic pain Condition: Good Instructions: ED Neuropathy Peripheral Follow-Up: Filiberto Vicente MD [Primary Care Provider] - Within 3 Days Prescriptions: Oxycodone HCl/Acetaminophen [Percocet 5-325 mg Tablet] 1 - 2 each PO Q6H PRN #8 tablet PRN Reason: pain Comments: You need to take the gabapentin as prescribed [id number]. You need to follow-up with your doctor for further pain medication. Do not drink alcohol or drive while on narcotic pain medicine. Note that many narcotic pain relievers also contain tylenol/acetaminophen. Please ensure that your total dose of acetaminophen from all sources does not exceed 3 grams (3000mg) per day. You may constipated on this medication, take a stool softener such as "Colace" twice a day while you are on it. Also recommend a [id number] laxative such as senna or MiraLAX any day that you do not have a bowel movement. If you received narcotic pain medication in the emergency department, do not drive or operate machinery for the next 24 hours. Discharge Date/Time: 09/16/18 15:58
== END 2018-09-16 15:58 | disposition home or self-care (01) ==
LOC: ED 15:04
DX: M79.2 Neuralgia and neuritis, unspecified (principal); F17.200 Nicotine dependence, unspecified, uncomplicated
CPT/HCPCS: 99283

== ENCOUNTER 2018-11-17 13:50 | Emergency (ER) | payer MEDICARE, MEDICAID ==
[2018-11-17 15:13] LABS: BILIRUBIN,URINE NEGATIVE (NEGATIVE); CLARITY,URINE CLEAR (CLEAR); GLUCOSE, URINE (UA) NEGATIVE (NEGATIVE); KETONES,URINE (UA) NEGATIVE (NEGATIVE); LEUKOCYTE ESTERASE, URINE NEGATIVE (NEGATIVE); NITRITE,URINE NEGATIVE (NEGATIVE); OCCULT BLOOD,URINE TRACE-INTA (NEGATIVE); PROTEIN,URINE NEGATIVE (NEGATIVE); UROBILINOGEN,URINE 0.2 (NORMAL) E.U./dL (NORMAL)
[2018-11-17 16:36] LABS: BASOPHILS # (AUTO) 0.1 10^3/uL (0.0-0.1); BASOPHILS % (AUTO) 0.9 %; EOSINOPHILS # (AUTO) 0.1 10^3/uL (0.0-0.7); EOSINOPHILS % (AUTO) 0.5 %; HGB - HEMOGLOBIN 14.1 g/dL (12.0-16.0); LYMPHOCYTES # (AUTO) 2.2 10^3/uL (1.5-3.5); LYMPHOCYTES % (AUTO) 22.2 %; MEAN CORPUSCULAR HEMOGLOBIN 30.9 pg (27.0-31.0); MEAN CORPUSCULAR HGB CONC 32.9 g/dL (32.0-36.0); MEAN PLATELET VOLUME 9.2 fL (7.9-10.8); MONOCYTES # (AUTO) 0.4 10^3/uL (0.0-1.0); MONOCYTES % (AUTO) 4.4 %; NEUTROPHILS # (AUTO) 7.1 10^3/uL (1.5-6.6); PLT - PLATELET COUNT 203 10^3/uL (130-450); RED BLOOD COUNT 4.55 10^6/uL (4.20-5.40); RED CELL DISTRIBUTION WIDTH 13.5 % (12.0-15.0); WHITE BLOOD COUNT 9.9 x10^3/uL (4.8-10.8)
[2018-11-17 16:47] LABS: ALBUMIN 4.2 g/dL (3.2-5.5); ALBUMIN/GLOBULIN RATIO 1.4 (1.0-2.2); BILIRUBIN,TOTAL 0.7 mg/dL (0.2-1.0); CALCIUM 9.5 mg/dL (8.5-10.3); CREATININE 0.8 mg/dL (0.4-1.0); TOTAL PROTEIN 7.2 g/dL (6.7-8.2)
[2018-11-17] MEDS ORDERED: KETOROLAC 30 MG/ML VIAL IVP STA (16:53)
--- NOTE | 2018-11-17 18:23 | CT Report ---
Reason: right flank pain Procedure Date: 11/17/2018 Accession Number: [id number] / [id number] Procedure: CT - Abdomen/Pelvis W/O CPT Code: FULL RESULT: EXAM: CT ABDOMEN AND PELVIS (CT KUB) EXAM DATE: 11/17/2018 05:51 PM. CLINICAL HISTORY: Right flank pain. COMPARISONS: ABDOMEN/PELVIS W/ 11/23/2017 7:19 PM. TECHNIQUE: Routine axial helical CT imaging was performed through the abdomen and pelvis without IV contrast. Reconstructions: Coronal and sagittal. In accordance with CT protocol optimization, one or more of the following dose reduction techniques were utilized for this exam: automated exposure control, adjustment of mA and/or KV based on patient size, or use of iterative reconstructive technique. FINDINGS: Lung Bases: Unremarkable. Right Kidney/Ureter: No stones, hydronephrosis, or hydroureter. No perinephric fat stranding. Left Kidney/Ureter: No obstructing stones, hydronephrosis, or hydroureter. No perinephric fat stranding. Other Solid Organs: Noncontrast images of the solid organs are grossly unremarkable. Gallbladder/Bile Ducts: Unremarkable. Peritoneal Cavity: No free fluid, free air or len adenopathy. Bowel is grossly unremarkable. Pelvic Organs: No bladder stones or wall thickening. Noncontrast images of the visualized pelvic organs are unremarkable. Vasculature: Unremarkable. Other: None. IMPRESSION: Negative noncontrast CT of the abdomen and pelvis. The kidneys demonstrate no obstructing stones or hydronephrosis. No evidence of appendicitis or bowel obstruction. RADIA
--- NOTE | 2018-11-17 18:27 | ED Physician Documentation ---
PD HPI ABD PAIN - Stated complaint Stated Complaint: SIDE PX-LOWER BACK PX - Chief complaint Chief Complaint: Abd Pain - History obtained from History obtained from: Patient - History of Present Illness Timing - duration: Days (3) Timing - details: Still present Location: Suprapubic Radiation: Lower back Associated symptoms: Nausea, Dysuria Similar symptoms before: Diagnosis (History of recurrent UTI's.) - Additional information Additional information: The patient is a 57-year-old female who complains of suprapubic abdominal pain radiating to her back. Her symptoms started about 3 days ago and have continued since that time. She reports associated dysuria and nausea. She denies vomiting or fever. She complains of "stinky urine." She reports a history of recurrent urinary tract infections during the past year. The last time was about 3 months ago. Review of Systems Constitutional: denies: Fever Nose: denies: Congestion Throat: denies: Sore throat Cardiac: denies: Chest pain / pressure Respiratory: denies: Dyspnea, Cough GI: reports: Abdominal Pain, Nausea. denies: Vomiting, Diarrhea : reports: Dysuria Skin: denies: Rash Musculoskeletal: reports: Back pain. denies: Extremity pain Neurologic: denies: Focal weakness, Headache PD PAST MEDICAL HISTORY - Past Medical History Past Medical History: Yes Cardiovascular: None Respiratory: None Neuro: None Endocrine/Autoimmune: None GI: Chronic diarrhea, Chronic constipation AEMT: Other : Chronic bladder infection HEENT: None Psych: Anxiety Musculoskeletal: Chronic back pain Derm: None - Past Surgical History Past Surgical History: Yes General: Colonoscopy, EGD Ortho: Carpal Tunnel surgery /AEMT: Tubal ligation HEENT: Tonsil/Adenoidectomy - Present Medications Home Medications: Ambulatory Orders Medication Instructions Recorded Confirmed Simvastatin 20 mg PO QPM 07/15/13 01/25/18 Fluticasone [Flonase] 1 spray INH DAILY 02/13/16 01/25/18 Bacillus Coagulans [Probiotic] 1 each PO DAILY 06/16/16 01/25/18 Wheat Dextrin [Benefiber] 1 each PO DAILY 06/16/16 01/25/18 Gabapentin 300 mg PO BID 06/20/17 01/25/18 Tizanidine HCl 4 mg PO DAILY 06/20/17 01/25/18 Albuterol Sulf [Ventolin Hfa 1 - 2 puffs INH Q4HR PRN #1 inhaler 11/13/17 01/25/18 Inhaler] diazePAM [Diazepam] 5 mg PO DAILY 11/13/17 01/25/18 - Allergies Allergies/Adverse Reactions: Allergies Allergy/AdvReac Type Severity Reaction Status Date / Time Penicillins Allergy Severe Hives Verified 11/17/18 14:08 - Social History Does the pt smoke?: Yes Smoking Status: Current every day smoker Does the pt drink ETOH?: No Does the pt have substance abuse?: No - Immunizations Immunizations are current?: Yes - POLST Patient has POLST: No PD ED PE NORMAL - Vitals Vital signs reviewed: Yes (normal) - General General: Alert and oriented X 3, Well developed/nourished - HEENT HEENT: Atraumatic, Pharynx benign - Neck Neck: Supple, no meningeal sign, No adenopathy, No JVD - Cardiac Cardiac: RRR, No murmur - Respiratory Respiratory: No respiratory distress, Clear bilaterally - Abdomen Abdomen: Normal bowel sounds, Soft, No organomegaly, Other (Mild suprapubic tenderness to palpation, without rebound or guarding.) - Back Back: No spinal TTP, Other (Mild right CVA tenderness to percussion.) - Derm Derm: No rash - Extremities Extremities: No edema, No calf tenderness / cord - Neuro Neuro: Alert and oriented X 3, No motor deficit, No sensory deficit Results - Vitals Vitals: Oxygen O2 Source Room air - Labs Labs: Laboratory Tests 11/17/18 11/17/18 11/17/18 14:20 16:24 16:24 WBC 9.9 RBC 4.55 Hgb 14.1 Hct 42.8 MCV 94.0 MCH 30.9 MCHC 32.9 RDW 13.5 Plt Count 203 MPV 9.2 Neut # (Auto) 7.1 H Lymph # (Auto) 2.2 [place] # (Auto) 0.4 Eos # (Auto) 0.1 Baso # (Auto) 0.1 Absolute Nucleated RBC 0.01 Nucleated RBC % 0.1 Sodium 141 Potassium 3.8 Chloride 104 Carbon Dioxide 29 Anion Gap 8.0 BUN 11 Creatinine 0.8 Estimated GFR (MDRD) 74 L Glucose 90 Calcium 9.5 Total Bilirubin 0.7 AST 19 ALT 12 Alkaline Phosphatase 96 Total Protein 7.2 Albumin 4.2 Globulin 3.0 Albumin/Globulin Ratio 1.4 Lipase 28 Urine Color YELLOW Urine Clarity CLEAR Urine pH 7.0 Ur Specific Achille 1.015 Urine Protein NEGATIVE Urine Glucose (UA) NEGATIVE Urine Ketones NEGATIVE Urine Occult Blood TRACE-INTA Urine Nitrite NEGATIVE Urine Bilirubin NEGATIVE Urine Urobilinogen 0.2 (NORMAL) Ur Leukocyte Esterase NEGATIVE Ur Microscopic Review NOT INDICATED Urine Culture Comments NOT INDICATED - Rads (name of study) CT abd/pelvis w/o Radiology: Prelim report reviewed, EMP read contemporaneously, See rad report (Negative noncontrast CT of the abdomen and pelvis. The kidneys demonstrate no obstructing stones or hydronephrosis. No evidence of appendicitis or bowel obstruction.) PD MEDICAL DECISION MAKING - ED course Complexity details: reviewed old records, reviewed results, re-evaluated patient, considered differential, d/w patient ED course: The underlying cause of the patient's abdominal pain is uncertain at this time. Urinary tract infection was considered, but urinalysis is negative. Ureteral stone was considered, but CT scan of the abdomen and pelvis reveals no ureteral calculus. It also shows a normal appendix and no evidence of bowel abnormality. Bladder scan revealed a postvoid residual of 179 mL. Treatment in the emergency department included administration of ketorolac 30 mg IV. On reexamination she reports improvement of her discomfort. I discussed with her the results of her workup, the importance of outpatient follow-up, as well as potentially worrisome signs or symptoms that should prompt reevaluation in the emergency department. Departure - Departure Disposition: 01 Home, Self Care Clinical Impression: Abdominal pain Qualifiers: Abdominal location: lower abdomen, unspecified Qualified Code(s): R10.30 - Lower abdominal pain, unspecified Condition: Stable Instructions: ED Abdominal Pain Unkn Cause Follow-Up: Filiberto Vicente MD [Primary Care Provider] - Comments: Drink plenty of fluids. You can use milk of magnesia, 30 mL daily, in addition to the stool softener you currently use. Certain foods, such as peaches, apricots, prunes, and raisins help promote bowel activity. Follow-up with your primary physician within 1 week. Call to schedule appointment. Return to the emergency department if you develop increasing abdominal pain, pe rsistent vomiting, or otherwise worsening symptoms. Discharge Date/Time: 11/17/18 18:34
[2018-11-17 18:52] VITALS: BP 108/88
== END 2018-11-17 18:34 | disposition home or self-care (01) ==
LOC: ED 13:50
DX: R10.30 Lower abdominal pain, unspecified (principal); F17.200 Nicotine dependence, unspecified, uncomplicated; Z87.440 Personal history of urinary (tract) infections
CPT/HCPCS: 36415; 74176; 80053; 81001; 81003; 83690; 85025; 87086; 96374; 99283

== ENCOUNTER 2019-06-29 16:29 | Emergency (ER) | payer MEDICARE, MEDICAID ==
[2019-06-29 16:36] VITALS: BP 136/79
--- NOTE | 2019-06-29 16:37 | ED Physician Documentation ---
History of Present Illness - Stated complaint Stated Complaint: BILAT LEG RASH - Chief complaint Chief Complaint: Wound - History obtained from History obtained from: Patient - History of Present Illness Timing: Today - Additonal information Additional information: Patient is a 58-year-old female presenting with rash to bilateral lower extremities and similar pattern. Patient denies known allergies except to penicillin, as well as denies any known exposures, changes in chemicals or detergents, new foods, new medications, or other changes.Patient reports that the rash is not painful and not itchy. No other areas of rash to her body. No fever, sensation/strength/range of motion change to legs. No other complaints. No other improving or worsening factors noted. Review of Systems Constitutional: denies: Fever Skin: reports: Rash. denies: Laceration (s), Bite / sting Musculoskeletal: reports: Extremity pain, Extremity swelling. 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 : Chronic bladder infection HEENT: None Psych: Anxiety Musculoskeletal: Chronic back pain Derm: None - Past Surgical History Past Surgical History: Yes General: Colonoscopy, EGD Ortho: Carpal Tunnel surgery /ONCOLOGY PHARMACIST: Tubal ligation HEENT: Tonsil/Adenoidectomy - Present Medications Home Medications: Ambulatory Orders Medication Instructions Recorded Confirmed Simvastatin 20 mg PO QPM 07/15/13 01/25/18 Fluticasone [Flonase] 1 spray INH DAILY 02/13/16 01/25/18 Bacillus Coagulans [Probiotic] 1 each PO DAILY 06/16/16 01/25/18 Wheat Dextrin [Benefiber] 1 each PO DAILY 06/16/16 01/25/18 Gabapentin 300 mg PO BID 06/20/17 01/25/18 Tizanidine HCl 4 mg PO DAILY 06/20/17 01/25/18 Albuterol Sulf [Ventolin Hfa 1 - 2 puffs INH Q4HR PRN #1 inhaler 11/13/17 01/25/18 Inhaler] diazePAM [Diazepam] 5 mg PO DAILY 11/13/17 01/25/18 predniSONE [Deltasone] 10 mg PO [id number] #42 tab 06/29/19 - Allergies Allergies/Adverse Reactions: Allergies Allergy/AdvReac Type Severity Reaction Status Date / Time Penicillins Allergy Severe Hives Verified 11/17/18 14:08 - Social History Does the pt smoke?: Yes Smoking Status: Current every day smoker Does the pt drink ETOH?: No Does the pt have substance abuse?: No - Immunizations Immunizations are current?: Yes - POLST Patient has POLST: No PD ED PE NORMAL - Vitals Vital signs reviewed: Yes - General General: Alert and oriented X 3, Well developed/nourished, Other (Animated, walking around room, throwing legs around on chair, easily distracted) - HEENT HEENT: Atraumatic, Moist mucous membranes - Neck Neck: Supple, no meningeal sign - Cardiac Cardiac: Strong equal pulses - Respiratory Respiratory: No respiratory distress - Derm Derm: Warm and dry. No: No rash (Macular, erythematous, nonpainful, blanching rash and similar pattern around the distal aspect of both tib fibs and nearly circumferential distribution. No vesicles, blistering, weeping, or joint involvement.) - Extremities Extremities: No deformity, No tenderness to palpate - Neuro Neuro: No motor deficit, No sensory deficit - Psych Psych: Other (Animated, easily distractable) Results - Vitals Vitals: Vital Signs - 24 hr 06/29/19 16:31 Temperature 36.1 C L Heart Rate 86 Respiratory 18 Rate Blood Pressure 136/79 H O2 Saturation 96 Oxygen O2 Source Room air PD MEDICAL DECISION MAKING - ED course Complexity details: considered differential, d/w patient ED course: Patient is extremely animated and has the appearance of tweaking. Patient is difficult to focus. Do not find bony abnormalities and do not have concern for trauma, dislocation, fracture and do not feel patient requires imaging at this time. Have low suspicion for gout, joint infection, DVT. Patient appears to have contact dermatitis-like rash. Do not see other signs of infectious rash or systemic illness. Repeatedly discussed supportive cares, [id number] medications, steroid use, precautions and follow-up. Departure - Departure Disposition: 01 Home, Self Care Clinical Impression: Contact dermatitis Qualifiers: Contact dermatitis type: unspecified Contact dermatitis trigger: unspecified trigger Qualified Code(s): L25.9 - Unspecified contact dermatitis, unspecified cause Condition: Good Instructions: ED Dermatitis Contact Follow-Up: your,doctor [Other] - Within 3 Days Prescriptions: predniSONE [Deltasone] 10 mg PO [id number] #42 tab Comments: Recommend ibuprofen/Tylenol as needed, elevation, ice application to areas of swelling. Please take steroids as prescribed to help relieve allergic component of contact rash. Follow-up with primary care physician in next 2 to 3 days and return to ED sooner if experience worsening symptoms or have other concerns.
== END 2019-06-29 17:01 | disposition home or self-care (01) ==
LOC: ED 16:29
DX: L25.9 Unspecified contact dermatitis, unspecified cause (principal); Z88.0 Allergy status to penicillin; F17.200 Nicotine dependence, unspecified, uncomplicated
CPT/HCPCS: 99282; 99284

== ENCOUNTER 2019-08-06 11:36 | Emergency (ER) | payer MEDICARE, MEDICAID ==
[2019-08-06 11:47] VITALS: BP 98/78
[2019-08-06] MEDS ORDERED: oxyCODONE 5 MG TABLET PO STA (12:38)
[2019-08-06] MEDS ORDERED: CLINDAMYCIN 150 MG CAPSULE PO STA (12:38)
--- NOTE | 2019-08-06 12:48 | ED Physician Documentation ---
History of Present Illness - Stated complaint Stated Complaint: TOOTH PX - Chief complaint Chief Complaint: Heent - History obtained from History obtained from: Patient - History of Present Illness Timing: Yesterday Pain level max: 8 Pain level now: 8 - Additonal information Additional information: 58-year-old female presents to the emergency department with dental pain after an extraction 4 days ago. States the pain began yesterday and has facial swelling. She states that she is out of her Percocet as well. She is not on antibiotics. No fevers. No nausea or vomiting. Nothing makes it better or worse. 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 : Chronic bladder infection HEENT: None Psych: Anxiety Musculoskeletal: Chronic back pain Derm: None - Past Surgical History Past Surgical History: Yes General: Colonoscopy, EGD Ortho: Carpal Tunnel surgery /INTERIOR DESIGN PROFESSIONAL: Tubal ligation HEENT: Tonsil/Adenoidectomy - Present Medications Home Medications: Ambulatory Orders Medication Instructions Recorded Confirmed Simvastatin 20 mg PO QPM 07/15/13 01/25/18 Fluticasone [Flonase] 1 spray INH DAILY 02/13/16 01/25/18 Bacillus Coagulans [Probiotic] 1 each PO DAILY 06/16/16 01/25/18 Wheat Dextrin [Benefiber] 1 each PO DAILY 06/16/16 01/25/18 Gabapentin 300 mg PO BID 06/20/17 01/25/18 Tizanidine HCl 4 mg PO DAILY 06/20/17 01/25/18 Albuterol Sulf [Ventolin Hfa 1 - 2 puffs INH Q4HR PRN #1 inhaler 11/13/17 01/25/18 Inhaler] diazePAM [Diazepam] 5 mg PO DAILY 11/13/17 01/25/18 predniSONE [Deltasone] 10 mg PO [id number] #42 tab 06/29/19 Clindamycin HCl [Clindamycin 300MG 300 mg PO Q6H #40 capsule 08/06/19 CAP] Oxycodone HCl/Acetaminophen 1 - 2 each PO Q6H PRN #10 tablet 08/06/19 [Percocet 5-325 mg Tablet] - Allergies Allergies/Adverse Reactions: Allergies Allergy/AdvReac Type Severity Reaction Status Date / Time Penicillins Allergy Severe Hives Verified 11/17/18 14:08 - Social History Does the pt smoke?: Yes Smoking Status: Current every day smoker Does the pt drink ETOH?: No Does the pt have substance abuse?: No - Immunizations Immunizations are current?: Yes - POLST Patient has POLST: No PD ED PE NORMAL - Vitals Vital signs reviewed: Yes - General General: Alert and oriented X 3, No acute distress, Well developed/nourished - HEENT HEENT: PERRL, Moist mucous membranes, Other (Diffuse dental decay. Left mandible gingival swelling. No visible abscess.) - Neck Neck: Supple, no meningeal sign, No adenopathy - Derm Derm: Warm and dry - Neuro Neuro: Alert and oriented X 3 - Psych Psych: Normal mood, Normal affect Results - Vitals Vitals: Vital Signs - 24 hr 08/06/19 11:45 Temperature 37.1 C Heart Rate 81 Respiratory 18 Rate Blood Pressure 98/78 O2 Saturation 97 Oxygen O2 Source Room air PD MEDICAL DECISION MAKING - ED course Complexity details: considered differential, d/w patient ED course: 58-year-old female with gingival swelling and dental pain after tooth extraction. Will place on antibiotics and prescribe a small amount of pain medications until she can see her dentist tomorrow. Patient counseled regarding signs and symptoms for which I believe and urgent re-evaluation would be necessary. Patient with good understanding of and agreement to plan and is comfortable going home at this time This document was made in part using voice recognition software. While efforts are made to proofread this document, sound alike and grammatical errors may occur. Departure - Departure Disposition: 01 Home, Self Care Clinical Impression: Pain, dental Condition: Good Instructions: ED Tooth Pain Follow-Up: your,dentisit tomorrow [Other] Prescriptions: Clindamycin HCl [Clindamycin 300MG CAP] 300 mg PO Q6H #40 capsule Oxycodone HCl/Acetaminophen [Percocet 5-325 mg Tablet] 1 - 2 each PO Q6H PRN #10 tablet PRN Reason: pain Comments: Take all antibiotics until gone. Follow-up with your dentist tomorrow. Return if you worsen. Do not drink alcohol or drive while on narcotic pain medicine. Note that many narcotic pain relievers also contain tylenol/acetaminophen. Please ensure that your total dose of acetaminophen from all sources does not exceed 3 grams (3000mg) per day. You may constipated on this medication, take a stool softener such as "Colace" twice a day while you are on it. Also recommend a [id number] laxative such as senna or MiraLAX any day that you do not have a bowel movement. If you received narcotic pain medication in the emergency department, do not drive or operate machinery for the next 24 hours.
== END 2019-08-06 12:58 | disposition home or self-care (01) ==
LOC: ED 11:36
DX: K08.89 Other specified disorders of teeth and supporting structures (principal); K02.9 Dental caries, unspecified; Z98.818 Other dental procedure status; F17.200 Nicotine dependence, unspecified, uncomplicated
CPT/HCPCS: 99282; 99283; A9270

== ENCOUNTER 2019-11-17 11:47 | Emergency (ER) | payer MEDICARE, MEDICAID ==
[2019-11-17] MEDS ORDERED: DEXAMETHASONE 10 MG/ML VIAL IM STA (13:58)
[2019-11-17] MEDS ORDERED: KETOROLAC 60 MG/2 ML VIAL IM STA (13:58)
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
[2019-11-17 14:47] VITALS: BP 140/85
== END 2019-11-17 14:48 | disposition home or self-care (01) ==
LOC: ED 11:47
DX: M62.830 Muscle spasm of back (principal); M54.2 Cervicalgia; F17.200 Nicotine dependence, unspecified, uncomplicated
CPT/HCPCS: 96372; 99283; 99284

== ENCOUNTER 2020-01-18 09:15 | Emergency (ER) | payer MEDICARE, MEDICAID ==
[2020-01-18] MEDS ORDERED: HYDROmorphone 1 MG/ML CARPUJECT IM STA (10:47)
[2020-01-18] MEDS ORDERED: KETOROLAC 60 MG/2 ML VIAL IM STA (10:47)
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
[2020-01-18 11:45] VITALS: BP 109/76
== END 2020-01-18 12:22 | disposition home or self-care (01) ==
LOC: ED 09:15
DX: M54.31 Sciatica, right side (principal); F17.200 Nicotine dependence, unspecified, uncomplicated
CPT/HCPCS: 96372; 99283; 99284; J1170

== ENCOUNTER 2020-12-02 09:02 | Emergency (ER) | payer MEDICARE, MEDICAID ==
[2020-12-02 09:33] LABS: BASOPHILS # (AUTO) 0.1 10^3/uL (0.0-0.1); EOSINOPHILS # (AUTO) 0.2 10^3/uL (0.0-0.7); EOSINOPHILS % (AUTO) 2.8 %; HGB - HEMOGLOBIN 14.5 g/dL (12.0-16.0); LYMPHOCYTES # (AUTO) 2.7 10^3/uL (1.5-3.5); LYMPHOCYTES % (AUTO) 38.2 %; MEAN CORPUSCULAR HGB CONC 32.8 g/dL (32.0-36.0); MEAN CORPUSCULAR VOLUME 91.5 fL (81.0-99.0); MEAN PLATELET VOLUME 10.4 fL (7.9-10.8); MONOCYTES # (AUTO) 0.5 10^3/uL (0.0-1.0); MONOCYTES % (AUTO) 6.6 %; NEUTROPHILS # (AUTO) 3.6 10^3/uL (1.5-6.6); NEUTROPHILS % (AUTO) 51.1 %; PLT - PLATELET COUNT 237 10^3/uL (130-450); RED BLOOD COUNT 4.83 10^6/uL (4.20-5.40); RED CELL DISTRIBUTION WIDTH 14.4 % (12.0-15.0); WHITE BLOOD COUNT 7.1 x10^3/uL (4.8-10.8)
[2020-12-02 09:47] LABS: ALBUMIN 3.9 g/dL (3.2-5.5); ALBUMIN/GLOBULIN RATIO 1.1 (1.0-2.2); BILIRUBIN,TOTAL 0.6 mg/dL (0.2-1.0); CALCIUM 8.9 mg/dL (8.5-10.3); TOTAL PROTEIN 7.3 g/dL (6.7-8.2)
[2020-12-02] MEDS ORDERED: KETOROLAC 30 MG/ML VIAL IVP STA (09:54)
[2020-12-02] MEDS ORDERED: SODIUM CHLORIDE 0.9% 1,000 ML IV STA (09:54)
[2020-12-02] MEDS ORDERED: cefTRIAXone 1 GM in SODIUM CHLORIDE 0.9% MINIBAG 100 ML IV STA (09:54)
[2020-12-02] MEDS ORDERED: ONDANSETRON 4 MG/2 ML VIAL IVP STA (09:54)
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
[2020-12-02 10:09] LABS: BILIRUBIN,URINE NEGATIVE (NEGATIVE); CLARITY,URINE CLEAR (CLEAR); GLUCOSE, URINE (UA) NEGATIVE (NEGATIVE); KETONES,URINE (UA) NEGATIVE (NEGATIVE); LEUKOCYTE ESTERASE, URINE NEGATIVE (NEGATIVE); NITRITE,URINE NEGATIVE (NEGATIVE); OCCULT BLOOD,URINE NEGATIVE (NEGATIVE); PROTEIN,URINE NEGATIVE (NEGATIVE); UROBILINOGEN,URINE 0.2 (NORMAL) E.U./dL (NORMAL)
[2020-12-02] MEDS ORDERED: IOVERSOL 320 100 ML VIAL IVP ONE (10:31)
--- NOTE | 2020-12-02 11:02 | CT Report ---
PROCEDURE: Abdomen/Pelvis W INDICATIONS: LLQ pain diverticulitis suspected CONTRAST: IV CONTRAST: Optiray 320 ml: 100 PO CONTRAST: *NO PO CONTRAST TECHNIQUE: After the administration of IV contrast, 5 mm thick sections acquired from the diaphragms to the symp hysis. 5 mm thick coronal and sagittal reformats were acquired. For radiation dose reduction, the f ollowing was used: automated exposure control, adjustment of mA and/or kV according to patient size. COMPARISON: CT examination dated 11/17/2018 FINDINGS: Image quality: Excellent. ABDOMEN: Lung bases: Mild dependent bibasilar scarring and atelectasis.. Heart size is normal. Solid organs: Liver and spleen are normal in size and enhancement. Gallbladder is within normal chacon its Biliary system is non dilated. Pancreas enhances normally. No adrenal nodules. Kidneys demons trate normal size and enhancement, without hydronephrosis. Peritoneum and bowel: Bowel loops demonstrate normal wall thickness and caliber. No free fluid or a ir. Normal appendix. Nodes and vessels: No retroperitoneal or mesenteric adenopathy by size criteria. Scattered mildly pr ominent subcentimeter mesenteric lymph nodes are present. Aorta and inferior vena cava are normal in size. There is moderate diffuse calcific plaque of the aorta and iliac arteries. Miscellaneous: No ventral hernias. PELVIS: Genitourinary: Bladder wall thickness is normal. Miscellaneous: No inguinal hernias or adenopathy. Bones: No suspicious bony lesions. No vertebral body compression fractures. IMPRESSION: 1. Mildly prominent mesenteric lymph nodes, consistent with mesenteric adenitis in the appropriate cl inical setting. 2. No evidence of diverticulitis. 3. Normal appendix. 4. Greater than expected atherosclerosis for age. Reviewed by: Raymond Guzman MD on 12/02/2020 11:01 AM [facility] Approved by: Raymond Guzman MD on 12/02/2020 11:01 AM PST Station ID: [id number]
[2020-12-02 12:14] VITALS: BP 119/83
== END 2020-12-02 12:16 | disposition home or self-care (01) ==
LOC: ED 09:02
DX: I88.0 Nonspecific mesenteric lymphadenitis (principal); E86.0 Dehydration; K58.2 Mixed irritable bowel syndrome; F17.200 Nicotine dependence, unspecified, uncomplicated
CPT/HCPCS: 36415; 74177; 80053; 81003; 83690; 85025; 96365; 96375; 99284; Q9967; 81001; 87086

== ENCOUNTER 2020-12-09 13:40 | Emergency (ER) | payer MEDICARE, MEDICAID ==
[2020-12-09 14:52] LABS: BASOPHILS # (AUTO) 0.1 10^3/uL (0.0-0.1); BASOPHILS % (AUTO) 0.8 %; EOSINOPHILS # (AUTO) 0.1 10^3/uL (0.0-0.7); EOSINOPHILS % (AUTO) 1.4 %; HGB - HEMOGLOBIN 14.4 g/dL (12.0-16.0); LYMPHOCYTES # (AUTO) 2.4 10^3/uL (1.5-3.5); LYMPHOCYTES % (AUTO) 32.6 %; MEAN CORPUSCULAR HEMOGLOBIN 29.4 pg (27.0-31.0); MEAN CORPUSCULAR HGB CONC 32.6 g/dL (32.0-36.0); MEAN CORPUSCULAR VOLUME 90.4 fL (81.0-99.0); MEAN PLATELET VOLUME 10.4 fL (7.9-10.8); MONOCYTES # (AUTO) 0.5 10^3/uL (0.0-1.0); MONOCYTES % (AUTO) 6.8 %; NEUTROPHILS # (AUTO) 4.2 10^3/uL (1.5-6.6); NEUTROPHILS % (AUTO) 58.1 %; PLT - PLATELET COUNT 246 10^3/uL (130-450); RED BLOOD COUNT 4.89 10^6/uL (4.20-5.40); RED CELL DISTRIBUTION WIDTH 14.5 % (12.0-15.0); WHITE BLOOD COUNT 7.2 x10^3/uL (4.8-10.8)
[2020-12-09 15:02] LABS: ALBUMIN/GLOBULIN RATIO 1.2 (1.0-2.2); BILIRUBIN,TOTAL 0.5 mg/dL (0.2-1.0); CALCIUM 9.3 mg/dL (8.5-10.3); CREATININE 0.9 mg/dL (0.4-1.0); TOTAL PROTEIN 7.4 g/dL (6.7-8.2)
--- NOTE | 2020-12-09 15:15 | ED Physician Documentation ---
PD HPI ABD PAIN - Stated complaint Stated Complaint: SWOLLEN ABD - Chief complaint Chief Complaint: Abd Pain - History obtained from History obtained from: Patient - History of Present Illness Timing - onset: Chronic Timing - duration: Years (10) Timing - details: Gradual onset Pain level max: 6 Pain level now: 5 Quality: Aching, Pain Location: All over / everywhere Associated symptoms: No: Fever, Nausea, Vomiting, Hematemesis, Diarrhea, Constipation, Melena, Hematochezia Recently seen: Emergency Dept - Additional information Additional information: 59-year-old female states that she has had bowel issues for the past 10 years. Nothing makes it better or worse. She was seen here with ago, diagnosed with mesenteric adenitis. She states that she is concerned that she is not better yet. She thinks she may need more antibiotics. She thinks she was diagnosed with a kidney infection. No fevers. No vomiting. Has been having bowel movements regularly. 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: Other : Chronic bladder infection HEENT: None Psych: Anxiety Musculoskeletal: Chronic back pain Derm: None - Past Surgical History Past Surgical History: Yes General: Colonoscopy, EGD Ortho: Rotator cuff repair, Carpal Tunnel surgery /COLOR ROOM ATTENDANT: Tubal ligation HEENT: Tonsil/Adenoidectomy - Present Medications Home Medications: Ambulatory Orders Medication Instructions Recorded Confirmed Simvastatin 20 mg PO QPM 07/15/13 12/09/20 Fluticasone [Flonase] 1 spray INH DAILY 02/13/16 12/09/20 Bacillus Coagulans [Probiotic] 1 each PO DAILY 06/16/16 12/09/20 Wheat Dextrin [Benefiber] 1 each PO DAILY 06/16/16 12/09/20 Gabapentin 300 mg PO TID 06/20/17 12/09/20 Tizanidine HCl 4 mg PO DAILY 06/20/17 12/09/20 Albuterol Sulf [Ventolin Hfa 1 - 2 puffs INH Q4HR PRN #1 inhaler 11/13/17 12/09/20 Inhaler] diazePAM [Diazepam] 5 mg PO DAILY 11/13/17 12/09/20 - Allergies Allergies/Adverse Reactions: Allergies Allergy/AdvReac Type Severity Reaction Status Date / Time Penicillins Allergy Severe Hives Verified 12/09/20 13:54 - Social History Does the pt smoke?: Yes Smoking Status: Current every day smoker Does the pt drink ETOH?: No Does the pt have substance abuse?: No - Immunizations Immunizations are current?: Yes - POLST Patient has POLST: No PD ED PE NORMAL - Vitals Vital signs reviewed: Yes - General General: Alert and oriented X 3, No acute distress, Well developed/nourished - HEENT HEENT: Moist mucous membranes - Neck Neck: Supple, no meningeal sign - Cardiac Cardiac: RRR, Strong equal pulses - Respiratory Respiratory: No respiratory distress, Clear bilaterally - Abdomen Abdomen: Soft, Non tender, Non distended - Back Back: No CVA TTP - Derm Derm: Warm and dry - Extremities Extremities: No edema - Neuro Neuro: Alert and oriented X 3 - Psych Psych: Normal mood, Normal affect Results - Vitals Vitals: Vital Signs - 24 hr 12/09/20 13:49 Temperature 36.1 C L Heart Rate 64 Respiratory 16 Rate Blood Pressure 141/87 H O2 Saturation 99 Oxygen O2 Source Room air - Labs Labs: Laboratory Tests 12/09/20 12/09/20 12/09/20 14:14 14:14 14:14 WBC 7.2 RBC 4.89 Hgb 14.4 Hct 44.2 MCV 90.4 MCH 29.4 MCHC 32.6 RDW 14.5 Plt Count 246 MPV 10.4 Neut # (Auto) 4.2 Lymph # (Auto) 2.4 [place] # (Auto) 0.5 Eos # (Auto) 0.1 Baso # (Auto) 0.1 Absolute Nucleated RBC 0.00 Nucleated RBC % 0.0 Sodium 143 Potassium 3.7 Chloride 105 Carbon Dioxide 28 Anion Gap 10.0 BUN 9 Creatinine 0.9 Estimated GFR (MDRD) 64 L Glucose 90 Calcium 9.3 Total Bilirubin 0.5 AST 17 ALT 18 Alkaline Phosphatase 126 H Total Protein 7.4 Albumin 4.0 Globulin 3.4 Albumin/Globulin Ratio 1.2 Lipase 79 H Urine Color YELLOW Urine Clarity CLEAR Urine pH 7.5 Ur Specific Ferguson 1.015 Urine Protein NEGATIVE Urine Glucose (UA) NEGATIVE Urine Ketones NEGATIVE Urine Occult Blood NEGATIVE Urine Nitrite NEGATIVE Urine Bilirubin NEGATIVE Urine Urobilinogen 0.2 (NORMAL) Ur Leukocyte Esterase NEGATIVE Ur Microscopic Review NOT INDICATED Urine Culture Comments NOT INDICATED PD MEDICAL DECISION MAKING - ED course Complexity details: reviewed old records, reviewed results, considered differential, d/w patient ED course: Patient is well-appearing, nontoxic. Afebrile. She seems to be concerned about the diagnoses that she was given at her last ER visit. There is no pyelonephritis. Negative urinalysis. CT only showed mesenteric adenitis. No bowel obstructions. No laboratory changes. No indication for antibiotics. She is at her normal baseline. Patient counseled regarding signs and symptoms for which I believe and urgent re-evaluation would be necessary. Patient with good understanding of and agreement to plan and is comfortable going home at this time This document was made in part using voice recognition software. While efforts are made to proofread this document, sound alike and grammatical errors may occur. Departure - Departure Disposition: 01 Home, Self Care Clinical Impression: Mesenteric adenitis Condition: Good Instructions: ED Adenitis Mesenteric Follow-Up: Filiberto Vicente MD [Primary Care Provider] - Within 1 week Comments: I have reviewed your medical records. You have mesenteric adenitis. You do not have a kidney infection also known as pyelonephritis. This does not require antibiotics. You should follow-up with your doctor for further care. There are no acute laboratory abnormalities today.
[2020-12-09 15:43] LABS: BILIRUBIN,URINE NEGATIVE (NEGATIVE); GLUCOSE, URINE (UA) NEGATIVE (NEGATIVE); KETONES,URINE (UA) NEGATIVE (NEGATIVE); LEUKOCYTE ESTERASE, URINE NEGATIVE (NEGATIVE); NITRITE,URINE NEGATIVE (NEGATIVE); OCCULT BLOOD,URINE NEGATIVE (NEGATIVE); PH,URINE 7.5 PH (5.0-7.5); PROTEIN,URINE NEGATIVE (NEGATIVE); UROBILINOGEN,URINE 0.2 (NORMAL) E.U./dL (NORMAL)
[2020-12-09 15:44] LABS: CLARITY,URINE CLEAR (CLEAR)
[2020-12-09 16:11] VITALS: BP 146/86
== END 2020-12-09 16:24 | disposition home or self-care (01) ==
LOC: ED 13:40
DX: I88.0 Nonspecific mesenteric lymphadenitis (principal); F17.200 Nicotine dependence, unspecified, uncomplicated
CPT/HCPCS: 36415; 80053; 81001; 81003; 83690; 85025; 87086; 99283; 99284

== ENCOUNTER 2022-08-01 17:21 | Emergency (ER) | payer MEDICARE, MEDICAID ==
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
[2022-08-01 17:32] VITALS: BP 110/76
--- NOTE | 2022-08-01 18:24 | ED Physician Documentation ---
History of Present Illness - Stated complaint Stated Complaint: HEAD PX - Chief complaint Chief Complaint: General - History obtained from History obtained from: Patient - Additonal information Additional information: 61-year-old woman with eczema had a pilar cyst removed from her scalp about a month and a half ago at [facility] by information technology director. Today she had more pain and swelling and drainage from it. No fevers or chills. She describes purulent drainage from it which has resolved. 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: Tubal ligation HEENT: Tonsil/Adenoidectomy - Present Medications Home Medications: Ambulatory Orders Medication Instructions Recorded Confirmed Simvastatin 20 mg PO QPM 07/15/13 12/09/20 Fluticasone [Flonase] 1 spray INH DAILY 02/13/16 12/09/20 Bacillus Coagulans [Probiotic] 1 each PO DAILY 06/16/16 12/09/20 Wheat Dextrin [Benefiber] 1 each PO DAILY 06/16/16 12/09/20 Gabapentin 300 mg PO TID 06/20/17 12/09/20 Tizanidine HCl 4 mg PO DAILY 06/20/17 12/09/20 Albuterol Sulf [Ventolin Hfa 1 - 2 puffs INH Q4HR PRN #1 inhaler 11/13/17 12/09/20 Inhaler] diazePAM [Diazepam] 5 mg PO DAILY 11/13/17 12/09/20 Doxycycline Hyclate 100 mg PO BID #14 tab 08/01/22 - Allergies Allergies/Adverse Reactions: Allergies Allergy/AdvReac Type Severity Reaction Status Date / Time Penicillins Allergy Severe Hives Verified 08/01/22 17:28 - Social History Does the pt smoke?: Yes Smoking Status: Current every day smoker Does the pt drink ETOH?: No Does the pt have substance abuse?: No - Immunizations Immunizations are current?: Yes - POLST Patient has POLST: No PD ED PE NORMAL - Vitals Vital signs reviewed: Yes - General General: Alert and oriented X 3, No acute distress - HEENT HEENT: Other (There is a well-healed surgical scar at the vertex of the scalp just to the right of midline. There is no active drainage and nothing to culture.) - Neuro Neuro: Alert and oriented X 3, Normal speech - Psych Psych: Normal mood, Normal affect Results - Vitals Vitals: Vital Signs - 24 hr 08/01/22 17:28 Temperature 36.5 C Heart Rate 85 Respiratory 16 Rate Blood Pressure 110/76 O2 Saturation 98 Oxygen O2 Source Room air Departure - Departure Disposition: Home, Self Care Clinical Impression: Infection of scalp Condition: Good Record reviewed to determine appropriate education?: Yes Instructions: ED Infec Skin Cellulitis Prescriptions: Doxycycline Hyclate 100 mg PO BID #14 tab Comments: As discussed, it is a possibility that your pilar cyst is back and infected, that said it looks like you have completely drained it at home. I am starting some antibiotics and you should follow-up with your information technology director, calling Wednesday for the next available appointment. Return for new or worsening symptoms I sent your prescription electronically to [facility] in [place].
[2022-08-01] MEDS: DOXYCYCLINE 100 MG TABLET PO STA (18:26)
== END 2022-08-01 18:34 | disposition home or self-care (01) ==
LOC: ED 17:21
DX: B35.0 Tinea barbae and tinea capitis (principal); F17.200 Nicotine dependence, unspecified, uncomplicated
CPT/HCPCS: 99282; A9270

== ENCOUNTER 2022-12-22 18:22 | Emergency (ER) | payer MEDICARE, MEDICAID ==
--- OUTSIDE RECORDS SUMMARY | 2022-12-22 18:55 | EXTERNAL MEDICAL SUMMARY RPT | Continuity of Care Document ---
:1960 Author Organization [facility] Address [address] [place] [address] Phone Care Team Providers Name Role Phone Filiberto Vicente Unavailable Unavailable Allergies No information. Encounters No information. Functional Status No information. Immunizations No information. Medications No information. Problems No information. Procedures No information. Results/Labs test date author facility value unit interpret ation Result panel 1 (unknown) (no (unknown) (unknown) (no value) (units (unk nown) date) unknown) (unknown) (no (unknown) (unknown) 09/23/22 (units (unkno wn) date) unknown) (unknown) (no (unknown) (unknown) [id number] (units (unkno wn) date) unknown) (unknown) (no (unknown) (unknown) Age/Sex: 61 / F (units (unknown) date) Date of Service: unknown) (unknown) (no (unknown) (unknown) Allergies (units (unkn own) date) unknown) (unknown) (no (unknown) (unknown) [place], [place] (units ( unknown) date) [id number] unknown) (unknown) (no (unknown) (unknown) Attending Dr: (units ( unknown) date) Filiberto Vicente MD unknown) (unknown) (no (unknown) (unknown) Breast cancer (units ( unknown) date) (Unknown) unknown) (unknown) (no (unknown) (unknown) Carpal tunnel (units ( unknown) date) syndrome (1981) unknown) (unknown) (no (unknown) (unknown) Chickenpox (units (unk nown) date) (1970) unknown) (unknown) (no (unknown) (unknown) : 1960 (units (unknown) date) Acct:[id number] unknown) (unknown) (no (unknown) (unknown) Dept at (units (unkno wn) date) . unknown) (unknown) (no (unknown) (unknown) Documented By: (units (unknown) date) Filiberto Vicente MD unknown) 10/21/22 0654 (unknown) (no (unknown) (unknown) Draft (units (unkno wn) date) unknown) (unknown) (no (unknown) (unknown) Family History (units (unknown) date) (Reviewed unknown) 06/14/18 @ 15:21 by Forest Poe MD) (unknown) (no (unknown) (unknown) Father (units (unknown) date) Cancer unknown) (unknown) (no (unknown) (unknown) [facility] ([facility] unknown) (unknown) (no (unknown) (unknown) History of (units (unk nown) date) carpal tunnel unknown) release (1981) (unknown) (no (unknown) (unknown) Hx of tubal (units (un known) date) ligation (1985) unknown) (unknown) (no (unknown) (unknown) Hyperlipemia (units (u nknown) date) (Unknown) unknown) (unknown) (no (unknown) (unknown) Hypotension (units (un known) date) (02/08/18) unknown) (unknown) (no (unknown) (unknown) Intake Note: (units (u nknown) date) unknown) (unknown) (no (unknown) (unknown) Intake (units (unkno wn) date) unknown) (unknown) (no (unknown) (unknown) Internal (units (unkno wn) date) Medicine Office unknown) Visit (unknown) (no (unknown) (unknown) Last Menstural (units [...] unknown) (unknown) (no (unknown) (unknown) Mother (units (unknown) date) No problems unknown) noted. (unknown) (no (unknown) (unknown) Mumps (1970) [...] unknown) (unknown) (no (unknown) (unknown) Sister (units (unknown) date) No problems unknown) noted. (unknown) (no (unknown) (unknown) Skin cancer [...] (unknown) (unknown) Visit Reasons: (units (unknown) date) F/U MED REVIEW unknown) (unknown) (no (unknown) (unknown) alcohol intake: (units (unknown) date) never unknown) (unknown) (no (unknown) (unknown) cscope (units (unkno wn) date) unknown) (unknown) (no (unknown) (unknown) f/u meds (units (unkno wn) date) unknown) (unknown) (no (unknown) (unknown) flu (units (unkno wn) date) unknown) (unknown) (no (unknown) (unknown) have occurred. (units (unknown) date) If there are any unknown) questions, please contact the Medical Records (unknown) (no (unknown) (unknown) mammo (units (unkno wn) date) unknown) (unknown) (no (unknown) (unknown) may occur. (units (unk nown) date) Occasional unknown) wrong-word or 'sound-alike' substitutions may have (unknown) (no (unknown) (unknown) occurred due to (units (unknown) date) the inherent unknown) limitations of voice recognition software. Please (unknown) (no (unknown) (unknown) read the note (units ( unknown) date) carefully and unknown) recognize, using context, where these substitutions (unknown) (no (unknown) (unknown) shingles (units (unkno wn) date) unknown) (unknown) (no (unknown) (unknown) software. (units (unkn own) date) Although every unknown) effort is made to edit content, yarn weigher errors (unknown) (no (unknown) (unknown) substance use (units ( unknown) date) type: does not unknown) use (unknown) (no (unknown) (unknown) td (units (unkno wn) date) unknown) Result panel 2 (unknown) (no (unknown) (unknown) (no value) (units (unk nown) date) unknown) (unknown) (no (unknown) (unknown) 10/21/22 (units (unkno wn) date) unknown) (unknown) (no (unknown) (unknown) [id number] (units (unkno wn) date) unknown) (unknown) (no (unknown) (unknown) Accompanied by: (units (unknown) date) Self / Same As unknown) Patient (unknown) (no (unknown) (unknown) Age/Sex: 61 / F (units (unknown) date) Date of Service: unknown) (unknown) (no (unknown) (unknown) Allergies (units (unkn own) date) unknown) (unknown) (no (unknown) (unknown) [place] (units ( unknown) date) [id number] unknown) (unknown) (no (unknown) (unknown) Attending Dr: (units ( unknown) date) Filiberto Vicente MD unknown) (unknown) (no (unknown) (unknown) Breast cancer (units ( unknown) date) (Unknown) unknown) (unknown) (no (unknown) (unknown) Carpal tunnel (units ( unknown) date) syndrome (1981) unknown) (unknown) (no (unknown) (unknown) Chickenpox (units (unk nown) date) (1969) unknown) (unknown) (no (unknown) (unknown) : 1960 (units (unknown) date) Acct:[id number] unknown) (unknown) (no (unknown) (unknown) Dept at (units (unkno wn) date) . unknown) (unknown) (no (unknown) (unknown) Documented By: (units (unknown) date) Filiberto Vicente MD unknown) 10/21/22 0654 (unknown) (no (unknown) (unknown) Draft (units (unkno wn) date) unknown) (unknown) (no (unknown) (unknown) Family History (units (unknown) date) (Reviewed unknown) 06/14/18 @ 15:21 by Forest Poe MD) (unknown) (no (unknown) (unknown) Father (units (unknown) date) Cancer unknown) (unknown) (no (unknown) (unknown) [facility]) (unknown) (no (unknown) (unknown) History of (units (unk nown) date) carpal tunnel unknown) release (1981) (unknown) (no (unknown) (unknown) Hx of tubal (units (un known) date) ligation (1985) unknown) (unknown) (no (unknown) (unknown) Hyperlipemia (units (u nknown) date) (Unknown) unknown) (unknown) (no (unknown) (unknown) Hypotension (units (un known) date) (02/08/18) unknown) (unknown) (no (unknown) (unknown) Intake Note: (units (u nknown) date) unknown) (unknown) (no (unknown) (unknown) Intake performed (units (unknown) date) by: Katie Ochoa unknown) (unknown) (no (unknown) (unknown) Intake (units (unkno wn) date) unknown) (unknown) (no (unknown) (unknown) Intake- Clincial (units (unknown) date) Staff unknown) (unknown) (no (unknown) (unknown) Internal (units (unkno wn) date) Medicine Office unknown) Visit (unknown) (no (unknown) (unknown) Last Menstural (units [...] unknown) (unknown) (no (unknown) (unknown) Mother (units (unknown) date) No problems unknown) noted. (unknown) (no (unknown) (unknown) Mumps (1970) (units (u nknown) date) unknown) (unknown) (no (unknown) (unknown) Other Menstrual (units (unknown) date) Period: unknown) Postmenopausal (unknown) (no (unknown) (unknown) PFSH (units (unkno wn) date) unknown) (unknown) (no (unknown) (unknown) PTSD (units (unkno wn) date) (post-traumatic unknown) stress disorder) (Unknown) (unknown) (no (unknown) (unknown) Patient: (units (unkno wn) date) Deysi Mullins L unknown) MR#: [id number] (unknown) (no (unknown) (unknown) [...] unknown) (unknown) (no (unknown) (unknown) Sister (units (unknown) date) No problems unknown) noted. (unknown) (no (unknown) (unknown) Skin cancer [...] (unknown) (unknown) Visit Reasons: (units (unknown) date) F/U MED REVIEW unknown) (unknown) (no (unknown) (unknown) alcohol intake: (units (unknown) date) never unknown) (unknown) (no (unknown) (unknown) cscope- wait (units (u nknown) date) till after unknown) holidays (unknown) (no (unknown) (unknown) f/u meds (units (unkno wn) date) unknown) (unknown) (no (unknown) (unknown) flu- decline (units (u nknown) date) unknown) (unknown) (no (unknown) (unknown) have occurred. (units (unknown) date) If there are any unknown) questions, please contact the Medical Records (unknown) (no (unknown) (unknown) mammo- talk (units (un known) date) about doing u/s unknown) (unknown) (no (unknown) (unknown) may occur. (units (unk nown) date) Occasional unknown) wrong-word or 'sound-alike' substitutions may have (unknown) (no (unknown) (unknown) occurred due to (units (unknown) date) the inherent unknown) limitations of voice recognition software. Please (unknown) (no (unknown) (unknown) read the note (units ( unknown) date) carefully and unknown) recognize, using context, where these substitutions (unknown) (no (unknown) (unknown) shingles- will (units (unknown) date) do at pharm unknown) (unknown) (no (unknown) (unknown) software. (units (unkn own) date) Although every unknown) effort is made to edit content, yarn weigher errors (unknown) (no (unknown) (unknown) substance use (units ( unknown) date) type: does not unknown) use (unknown) (no (unknown) (unknown) td- will do (units (un known) date) today unknown) Result panel 3 (unknown) (no (unknown) (unknown) (no value) (units (unk nown) date) unknown) (unknown) (no (unknown) (unknown) .COMPLEX (units (unkno wn) date) 05/24/20 [History unknown) Confirmed 10/21/22] (unknown) (no (unknown) (unknown) 05/24/20 (units (unkno wn) date) [History unknown) Confirmed 10/21/22] (unknown) (no (unknown) (unknown) 10/21/22 (units (unkno wn) date) unknown) (unknown) (no (unknown) (unknown) 10/21/22] (units (unkn own) date) unknown) (unknown) (no (unknown) (unknown) 13:13 (units (unkno wn) date) unknown) (unknown) (no (unknown) (unknown) [id number] (units (unkno wn) date) unknown) (unknown) (no (unknown) (unknown) Accompanied by: (units (unknown) date) Self / Same As unknown) Patient (unknown) (no (unknown) (unknown) Age/Sex: 61 / F (units (unknown) date) Date of Service: unknown) (unknown) (no (unknown) (unknown) Allergies (units (unkn own) date) unknown) (unknown) (no (unknown) (unknown) [place], [place] (units ( unknown) date) [id number] unknown) (unknown) (no (unknown) (unknown) Attending Dr: (units ( unknown) date) Filiberto Vicente MD unknown) (unknown) (no (unknown) (unknown) BMI 28.0 (units (unkno wn) date) unknown) (unknown) (no (unknown) (unknown) BP 110/70 (units (unkn own) date) unknown) (unknown) (no (unknown) (unknown) Blood Pressure (units (unknown) date) Location Lt unknown) brachial (unknown) (no (unknown) (unknown) Breast cancer (units ( unknown) date) (Unknown) unknown) (unknown) (no (unknown) (unknown) Carpal tunnel (units ( unknown) date) syndrome (1981) unknown) (unknown) (no (unknown) (unknown) Chickenpox (units (unk nown) date) (1970) unknown) (unknown) (no (unknown) (unknown) Confirmed (units (unkn own) date) 10/21/22] unknown) (unknown) (no (unknown) (unknown) : 1960 (units (unknown) date) Acct:[id number] unknown) (unknown) (no (unknown) (unknown) Dept at (units (unkno wn) date) . unknown) (unknown) (no (unknown) (unknown) Documented By: (units (unknown) date) Filiberto Vicente MD unknown) 10/21/22 0654 (unknown) (no (unknown) (unknown) Draft (units (unkno wn) date) unknown) (unknown) (no (unknown) (unknown) Family History (units (unknown) date) (Reviewed unknown) 06/14/18 @ 15:21 by Forest Poe MD) (unknown) (no (unknown) (unknown) Father (units (unknown) date) Cancer unknown) (unknown) (no (unknown) (unknown) [facility] ([facility] ([facility] unknown) (unknown) (no (unknown) (unknown) Health (units (unkno wn) date) Management unknown) reviewed with patient: Yes (unknown) (no (unknown) (unknown) Health (units (unkno wn) date) Management unknown) (unknown) (no (unknown) (unknown) Height 5 ft 6 in (units (unknown) date) unknown) (unknown) (no (unknown) (unknown) History of (units (unk nown) date) carpal tunnel unknown) release (1981) (unknown) (no (unknown) (unknown) Hx of tubal (units (un known) date) ligation (1985) unknown) (unknown) (no (unknown) (unknown) Hyperlipemia (units (u nknown) date) (Unknown) unknown) (unknown) (no (unknown) (unknown) Hypotension (units (un known) date) (02/08/18) unknown) (unknown) (no (unknown) (unknown) Intake Note: (units (u nknown) date) unknown) (unknown) (no (unknown) (unknown) Intake performed (units (unknown) date) by: Katie Ochoa unknown) (unknown) (no (unknown) (unknown) Intake (units (unkno wn) date) unknown) (unknown) (no (unknown) (unknown) Intake- Clincial (units (unknown) date) Staff unknown) (unknown) (no (unknown) (unknown) Internal (units (unkno wn) date) Medicine Office unknown) Visit (unknown) (no (unknown) (unknown) Lactobacillus (units ( unknown) date) acidophilus 10 unknown) billion cell capsule See Rx Instructions .Route (unknown) (no (unknown) (unknown) Last Menstural (units (unknown) date) Cycle + Details unknown) (unknown) (no (unknown) (unknown) Loc: [facility] (units (unkno wn) date) unknown) (unknown) (no (unknown) (unknown) Lumbosacral (units (un known) date) neuritis unknown) (Unknown) (unknown) (no (unknown) (unknown) Medical History (units (unknown) date) (Updated 06/11/22 unknown) @ 17:01 by Filiberto Vicente MD) (unknown) (no (unknown) (unknown) Medications (units (un known) date) unknown) (unknown) (no (unknown) (unknown) Migraines (units (unkn own) date) (Unknown) unknown) (unknown) (no (unknown) (unknown) Mother (units (unknown) date) No problems unknown) noted. (unknown) (no (unknown) (unknown) Mumps (1970) (units (u nknown) date) unknown) (unknown) (no (unknown) (unknown) Other Menstrual (units (unknown) date) Period: unknown) Postmenopausal (unknown) (no (unknown) (unknown) Oxygen Delivery (units (unknown) date) Method room air unknown) (unknown) (no (unknown) (unknown) PFSH (units (unkno wn) date) unknown) (unknown) (no (unknown) (unknown) PTSD (units (unkno wn) date) (post-traumatic unknown) stress disorder) (Unknown) (unknown) (no (unknown) (unknown) Patient: (units (unkno wn) date) Deysi Mullins unknown) MR#: [id number] (unknown) (no (unknown) (unknown) Penicillins (units (un known) date) [PENICILLINS] unknown) Allergy (Unknown, Verified 10/21/22 13:11) (unknown) (no (unknown) (unknown) Plantar (units (unkno wn) date) fibromatosis unknown) (Unknown) (unknown) (no (unknown) (unknown) Position Sitting (units (unknown) date) unknown) (unknown) (no (unknown) (unknown) Pulse 75 (units (unkno wn) date) unknown) (unknown) (no (unknown) (unknown) Pulse Oximetry (units (unknown) date) (%) 98 unknown) (unknown) (no (unknown) (unknown) Pulse Source (units (u nknown) date) Monitor unknown) (unknown) (no (unknown) (unknown) Reason For Visit (units (unknown) date) unknown) (unknown) (no (unknown) (unknown) Restless leg (units (u nknown) date) syndrome unknown) (Unknown) (unknown) (no (unknown) (unknown) Signed By: (units (unk nown) date) unknown) (unknown) (no (unknown) (unknown) Sister (units (unknown) date) No problems unknown) noted. (unknown) (no (unknown) (unknown) Skin cancer [...] (unknown) (unknown) Visit Reasons: (units (unknown) date) F/U MED REVIEW unknown) (unknown) (no (unknown) (unknown) Vitals (units (unkno wn) date) unknown) (unknown) (no (unknown) (unknown) Weight 174 lb (units ( unknown) date) unknown) (unknown) (no (unknown) (unknown) [Rx Confirmed (units ( unknown) date) 10/21/22] unknown) (unknown) (no (unknown) (unknown) albuterol (units (unkn own) date) sulfate 90 unknown) mcg/actuation aerosol inhaler 2 puff inhalation Q4-6H PRN (unknown) (no (unknown) (unknown) alcohol intake: (units (unknown) date) never unknown) (unknown) (no (unknown) (unknown) atorvastatin 40 (units (unknown) date) mg tablet 40 mg unknown) PO HS #90 tabs 09/22/22 [Rx Confirmed 10/21/22] (unknown) (no (unknown) (unknown) calcium (units (unkno wn) date) carbonate 500 unknown) mg-vitamin D3 10 mcg (400 unit) tablet 1 tab PO DAILY (unknown) (no (unknown) (unknown) cscope- wait (units (u nknown) date) till after unknown) holidays (unknown) (no (unknown) (unknown) diazepam 5 mg (units ( unknown) date) tablet 5 mg PO unknown) BID-TID PRN muscle spasm #60 tabs 07/16/22 [Rx (unknown) (no (unknown) (unknown) f/u meds (units (unkno wn) date) unknown) (unknown) (no (unknown) (unknown) flu- decline (units (u nknown) date) unknown) (unknown) (no (unknown) (unknown) fluticasone (units (un known) date) propionate 50 unknown) mcg/actuation nasal spray,suspension 1 spray (unknown) (no (unknown) (unknown) gabapentin 300 (units (unknown) date) mg capsule unknown) (Neurontin) 600 mg PO TID #540 caps 05/05/22 [Rx (unknown) (no (unknown) (unknown) grams 12/30/21 (units (unknown) date) [Rx Confirmed unknown) 10/21/22] (unknown) (no (unknown) (unknown) have occurred. (units (unknown) date) If there are any unknown) questions, please contact the Medical Records (unknown) (no (unknown) (unknown) intranasal SEE (units (unknown) date) INSTRUCTIONS PRN unknown) allergy symptoms ##1 09/27/20 [Rx Confirmed (unknown) (no (unknown) (unknown) mammo- talk (units (un known) date) about doing u/s unknown) (unknown) (no (unknown) (unknown) may occur. (units (unk nown) date) Occasional unknown) wrong-word or 'sound-alike' substitutions may have (unknown) (no (unknown) (unknown) mirtazapine 30 (units (unknown) date) mg tablet 30 mg unknown) PO BEDTIME #90 tabs 07/15/22 [Rx Confirmed (unknown) (no (unknown) (unknown) multivitamin 1 (units (unknown) date) tab PO DAILY unknown) 02/21/21 [History Confirmed 10/21/22] (unknown) (no (unknown) (unknown) occurred due to (units (unknown) date) the inherent unknown) limitations of voice recognition software. Please (unknown) (no (unknown) (unknown) read the note (units ( unknown) date) carefully and unknown) recognize, using context, where these substitutions (unknown) (no (unknown) (unknown) shingles- will (units (unknown) date) do at pharm unknown) (unknown) (no (unknown) (unknown) shortness of (units (u nknown) date) breath or unknown) wheezing #18 grams 12/29/21 [Rx Confirmed 10/21/22] (unknown) (no (unknown) (unknown) software. (units (unkn own) date) Although every unknown) effort is made to edit content, yarn weigher errors (unknown) (no (unknown) (unknown) substance use (units ( unknown) date) type: does not unknown) use (unknown) (no (unknown) (unknown) td- would like (units (unknown) date) tdap unknown) (unknown) (no (unknown) (unknown) tizanidine 4 mg (units (unknown) date) tablet 8 mg PO unknown) TID PRN muscle spasticity #180 tabs 05/05/22 [Rx (unknown) (no (unknown) (unknown) tramadol 50 mg (units (unknown) date) tablet 50 mg PO unknown) QID PRN pain #60 tabs 07/16/22 [Rx Confirmed (unknown) (no (unknown) (unknown) triamcinolone (units ( unknown) date) acetonide 0.1 % unknown) topical cream 1 applic topical BID PRN rash #30 (unknown) (no (unknown) (unknown) venlafaxine 75 (units (unknown) date) mg unknown) capsule,extended release 24 hr 75 mg PO QAM #90 caps 07/15/22 Result panel 4 (unknown) (no (unknown) (unknown) (no value) (units (unk nown) date) unknown) (unknown) (no (unknown) (unknown) (1) (units (unkno wn) date) Uncomplicated unknown) opioid dependence: (unknown) (no (unknown) (unknown) (2) Lumbosacral (units (unknown) date) neuritis: unknown) (unknown) (no (unknown) (unknown) .COMPLEX (units (unkno wn) date) 05/24/20 [History unknown) Confirmed 10/21/22] (unknown) (no (unknown) (unknown) 05/24/20 (units (unkno wn) date) [History unknown) Confirmed 10/21/22] (unknown) (no (unknown) (unknown) 10/21/22 (units (unkno wn) date) unknown) (unknown) (no (unknown) (unknown) 10/21/22] (units (unkn own) date) unknown) (unknown) (no (unknown) (unknown) 10/22/22 1817 (units ( unknown) date) unknown) (unknown) (no (unknown) (unknown) 13:13 (units (unkno wn) date) unknown) (unknown) (no (unknown) (unknown) [id number] (units (unkno wn) date) unknown) (unknown) (no (unknown) (unknown) Accompanied by: (units (unknown) date) Self / Same As unknown) Patient (unknown) (no (unknown) (unknown) Age/Sex: 61 / F (units (unknown) date) Date of Service: unknown) (unknown) (no (unknown) (unknown) All systems (units (un known) date) reviewed + are unknown) unremarkable except as noted in HPI and below (unknown) (no (unknown) (unknown) Allergies (units (unkn own) date) unknown) (unknown) (no (unknown) (unknown) [place], [place] (units ( unknown) date) [id number] unknown) (unknown) (no (unknown) (unknown) Assessment + (units (u nknown) date) Plan unknown) (unknown) (no (unknown) (unknown) Attending Dr: (units ( unknown) date) Filiberto Vicente MD unknown) (unknown) (no (unknown) (unknown) BMI 28.0 (units (unkno wn) date) unknown) (unknown) (no (unknown) (unknown) BP 110/70 (units (unkn own) date) unknown) (unknown) (no (unknown) (unknown) Blood Pressure (units (unknown) date) Location Lt unknown) brachial (unknown) (no (unknown) (unknown) Breast cancer (units ( unknown) date) (Unknown) unknown) (unknown) (no (unknown) (unknown) Carpal tunnel (units ( unknown) date) syndrome (1981) unknown) (unknown) (no (unknown) (unknown) Chickenpox (units (unk nown) date) (1970) unknown) (unknown) (no (unknown) (unknown) Chief Complaint (units (unknown) date) unknown) (unknown) (no (unknown) (unknown) Chief Complaint: (units (unknown) date) Pain management unknown) (unknown) (no (unknown) (unknown) Confirmed (units (unkn own) date) 10/21/22] unknown) (unknown) (no (unknown) (unknown) Const (units (unkno wn) date) unknown) (unknown) (no (unknown) (unknown) : 1960 (units (unknown) date) Acct:[id number] unknown) (unknown) (no (unknown) (unknown) Dept at (units (unkno wn) date) . unknown) (unknown) (no (unknown) (unknown) Details: (units (unkno wn) date) unknown) (unknown) (no (unknown) (unknown) Discussed that (units (unknown) date) other opiates are unknown) likely to cause the same problems with (unknown) (no (unknown) (unknown) Documented By: (units (unknown) date) Filiberto Vicente MD unknown) 10/21/22 0654 (unknown) (no (unknown) (unknown) Effort + (units (unkno wn) date) Inspection: unknown) normal respiratory effort, able to speak in complete (unknown) (no (unknown) (unknown) Exam (units (unkno wn) date) unknown) (unknown) (no (unknown) (unknown) Family History (units (unknown) date) (Reviewed unknown) 06/14/18 @ 15:21 by Forest Poe MD) (unknown) (no (unknown) (unknown) Father (units (unknown) date) Cancer unknown) (unknown) (no (unknown) (unknown) [facility] (units ([facility] date[facility] unknown) (unknown) (no (unknown) (unknown) General: (units (unkno wn) date) cooperative, unknown) healthy appearing, uncomfortable, no acute distress and (unknown) (no (unknown) (unknown) HPI (units (unkno wn) date) unknown) (unknown) (no (unknown) (unknown) Health (units (unkno wn) date) Management unknown) reviewed with patient: Yes (unknown) (no (unknown) (unknown) Health (units (unkno wn) date) Management unknown) (unknown) (no (unknown) (unknown) Height 5 ft 6 in (units (unknown) date) unknown) (unknown) (no (unknown) (unknown) History of (units (unk nown) date) carpal tunnel unknown) release (1981) (unknown) (no (unknown) (unknown) Hold Comment: (units ( unknown) date) Causes itching 50 unknown) mg PO QID PRN 60 tabs 4RF pain (unknown) (no (unknown) (unknown) Hx of tubal (units (un known) date) ligation (1985) unknown) (unknown) (no (unknown) (unknown) Hyperlipemia (units (u nknown) date) (Unknown) unknown) (unknown) (no (unknown) (unknown) Hypotension (units (un known) date) (02/08/18) unknown) (unknown) (no (unknown) (unknown) Intake Note: (units (u nknown) date) unknown) (unknown) (no (unknown) (unknown) Intake performed (units (unknown) date) by: Katie Ochoa unknown) (unknown) (no (unknown) (unknown) Intake (units (unkno wn) date) unknown) (unknown) (no (unknown) (unknown) Intake- Clincial (units (unknown) date) Staff unknown) (unknown) (no (unknown) (unknown) Internal (units (unkno wn) date) Medicine Office unknown) Visit (unknown) (no (unknown) (unknown) Lactobacillus (units ( unknown) date) acidophilus 10 unknown) billion cell capsule See Rx Instructions .Route (unknown) (no (unknown) (unknown) Last Menstural (units (unknown) date) Cycle + Details unknown) (unknown) (no (unknown) (unknown) Loc: [facility] (units (unkno wn) date) unknown) (unknown) (no (unknown) (unknown) Lumbosacral (units (un known) date) neuritis unknown) (Unknown) (unknown) (no (unknown) (unknown) Medical History (units (unknown) date) (Updated 06/11/22 unknown) @ 17:01 by Filiberto Vicente MD) (unknown) (no (unknown) (unknown) Medications (units (un known) date) unknown) (unknown) (no (unknown) (unknown) Medications: (units (u nknown) date) unknown) (unknown) (no (unknown) (unknown) Migraines (units (unkn own) date) (Unknown) unknown) (unknown) (no (unknown) (unknown) Mother (units (unknown) date) No problems unknown) noted. (unknown) (no (unknown) (unknown) [place] (1971) (units (u nknown) date) unknown) (unknown) (no (unknown) (unknown) Nutritional (units (un known) date) Appearance: unknown) overweight (unknown) (no (unknown) (unknown) On Hold (units (unkno wn) date) unknown) (unknown) (no (unknown) (unknown) Orientation: (units (u nknown) date) oriented x3 unknown) (unknown) (no (unknown) (unknown) Other Menstrual (units (unknown) date) Period: unknown) Postmenopausal (unknown) (no (unknown) (unknown) Oxygen Delivery (units (unknown) date) Method room air unknown) (unknown) (no (unknown) (unknown) PFSH (units (unkno wn) date) unknown) (unknown) (no (unknown) (unknown) PTSD (units (unkno wn) date) (post-traumatic unknown) stress disorder) (Unknown) (unknown) (no (unknown) (unknown) Patient: (units (unkno wn) date) Deysi Mullins unknown) MR#: [id number] (unknown) (no (unknown) (unknown) Penicillins (units (un known) date) [PENICILLINS] unknown) Allergy (Unknown, Verified 10/21/22 13:11) (unknown) (no (unknown) (unknown) Plan (units (unkno wn) date) unknown) (unknown) (no (unknown) (unknown) Plantar (units (unkno wn) date) fibromatosis unknown) (Unknown) (unknown) (no (unknown) (unknown) Position Sitting (units (unknown) date) unknown) (unknown) (no (unknown) (unknown) Pulse 75 (units (unkno wn) date) unknown) (unknown) (no (unknown) (unknown) Pulse Oximetry (units (unknown) date) (%) 98 unknown) (unknown) (no (unknown) (unknown) Pulse Source (units (u nknown) date) Monitor unknown) (unknown) (no (unknown) (unknown) ROS (units (unkno wn) date) unknown) (unknown) (no (unknown) (unknown) Reason For Visit (units (unknown) date) unknown) (unknown) (no (unknown) (unknown) Resp (units (unkno wn) date) unknown) (unknown) (no (unknown) (unknown) Restless leg (units (u nknown) date) syndrome unknown) (Unknown) (unknown) (no (unknown) (unknown) She discontinued (units (unknown) date) her tramadol unknown) about a month ago at the advice of her (unknown) (no (unknown) (unknown) Signed By: (units (unk nown) date) <Electronically unknown) signed by Filiberto Vicente MD> (unknown) (no (unknown) (unknown) Signed (units (unkno wn) date) unknown) (unknown) (no (unknown) (unknown) Sister (units (unknown) date) No problems unknown) noted. (unknown) (no (unknown) (unknown) Skin cancer (units (un known) date) (melanoma) unknown) (Unknown) (unknown) (no (unknown) (unknown) Smoking Status: (units (unknown) date) Current some day unknown) smoker (3-4 cigarettes a day) (unknown) (no (unknown) (unknown) Status: Acute (units ( unknown) date) unknown) (unknown) (no (unknown) (unknown) Status: Chronic (units (unknown) date) unknown) (unknown) (no (unknown) (unknown) Surgical History (units [...] (unknown) (unknown) Visit Reasons: (units (unknown) date) F/U MED REVIEW unknown) (unknown) (no (unknown) (unknown) Vitals (units (unkno wn) date) unknown) (unknown) (no (unknown) (unknown) Weight 174 lb (units ( unknown) date) unknown) (unknown) (no (unknown) (unknown) [Rx Confirmed (units ( unknown) date) 10/21/22] unknown) (unknown) (no (unknown) (unknown) albuterol (units (unkn own) date) sulfate 90 unknown) mcg/actuation aerosol inhaler 2 puff inhalation Q4-6H PRN (unknown) (no (unknown) (unknown) alcohol intake: (units (unknown) date) never unknown) (unknown) (no (unknown) (unknown) anxious (units (unkno wn) date) unknown) (unknown) (no (unknown) (unknown) at some point in (units (unknown) date) the future, but unknown) wishes to delay it as long as possible. Finds (unknown) (no (unknown) (unknown) atorvastatin 40 (units (unknown) date) mg tablet 40 mg unknown) PO HS #90 tabs 09/22/22 [Rx Confirmed 10/21/22] (unknown) (no (unknown) (unknown) but she continues (units (unknown) date) to get obvious unknown) benefit from diazepam. 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 (units (unknown) date) She was told that unknown) this medication can cause itching and (unknown) (no (unknown) (unknown) diazepam 5 mg (units ( unknown) date) tablet 5 mg PO unknown) BID-TID PRN muscle spasm #60 tabs 07/16/22 [Rx (unknown) (no (unknown) (unknown) exacerbations of (units (unknown) date) eczema. Without unknown) the tramadol, symptoms are a little bit worse, (unknown) (no (unknown) (unknown) f/u meds (units (unkno wn) date) unknown) (unknown) (no (unknown) (unknown) flu- decline (units (u nknown) date) unknown) (unknown) (no (unknown) (unknown) fluticasone (units (un known) date) propionate 50 unknown) mcg/actuation nasal spray,suspension 1 spray (unknown) (no (unknown) (unknown) gabapentin 300 (units (unknown) date) mg capsule unknown) (Neurontin) 600 mg PO TID #540 caps 05/05/22 [Rx (unknown) (no (unknown) (unknown) grams 12/30/21 (units (unknown) date) [Rx Confirmed unknown) 10/21/22] (unknown) (no (unknown) (unknown) have occurred. (units (unknown) date) If there are any unknown) questions, please contact the Medical Records (unknown) (no (unknown) (unknown) intranasal SEE (units (unknown) date) INSTRUCTIONS PRN unknown) allergy symptoms ##1 09/27/20 [Rx Confirmed (unknown) (no (unknown) (unknown) mammo- talk (units (un known) date) about doing u/s unknown) (unknown) (no (unknown) (unknown) may occur. (units (unk nown) date) Occasional unknown) wrong-word or 'sound-alike' substitutions may have (unknown) (no (unknown) (unknown) mirtazapine 30 (units (unknown) date) mg tablet 30 mg unknown) PO BEDTIME #90 tabs 07/15/22 [Rx Confirmed (unknown) (no (unknown) (unknown) multivitamin 1 (units (unknown) date) tab PO DAILY unknown) 02/21/21 [History Confirmed 10/21/22] (unknown) (no (unknown) (unknown) now and return (units (unknown) date) to it later. unknown) Continue diazepam. Discussed the decision making (unknown) (no (unknown) (unknown) occurred due to (units (unknown) date) the inherent unknown) limitations of voice recognition software. Please (unknown) (no (unknown) (unknown) presyncope, (units (un known) date) chest pain, and unknown) ALOC. No suspicious activity identified on [facility] [employer]. (unknown) (no (unknown) (unknown) process around (units (unknown) date) surgical unknown) consultation. RTC 3 months. (unknown) (no (unknown) (unknown) pruritus. If she (units (unknown) date) is functional unknown) without this medication, we will put on hold for (unknown) (no (unknown) (unknown) read the note (units ( unknown) date) carefully and unknown) recognize, using context, where these substitutions (unknown) (no (unknown) (unknown) relationships, (units (unknown) date) social unknown) relationships, and sleep patterns are similar to the last (unknown) (no (unknown) (unknown) sentences and no (units (unknown) date) audible wheezes unknown) (unknown) (no (unknown) (unknown) shingles- will (units (unknown) date) do at pharm unknown) (unknown) (no (unknown) (unknown) shortness of (units (u nknown) date) breath or unknown) wheezing #18 grams 12/29/21 [Rx Confirmed 10/21/22] (unknown) (no (unknown) (unknown) software. 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 Family (unknown) (no (unknown) (unknown) time we (units (unkno wn) date) discussed them. unknown) The patient specifically denies side effects from the (unknown) (no (unknown) (unknown) tizanidine 4 mg (units (unknown) date) tablet 8 mg PO unknown) TID PRN muscle spasticity #180 tabs 05/05/22 [Rx (unknown) (no (unknown) (unknown) tramadol 50 mg (units (unknown) date) tablet 50 mg PO unknown) QID PRN pain #60 tabs 07/16/22 [Rx Confirmed (unknown) (no (unknown) (unknown) tramadol (units (unkno wn) date) unknown) (unknown) (no (unknown) (unknown) triamcinolone (units ( unknown) date) acetonide 0.1 % unknown) topical cream 1 applic topical BID PRN rash #30 (unknown) (no (unknown) (unknown) venlafaxine 75 (units (unknown) date) mg unknown) capsule,extended release 24 hr 75 mg PO QAM #90 caps 07/15/22 (unknown) (no (unknown) (unknown) worsening muscle (units (unknown) date) spasms. Says that unknown) she knows she will need surgery on her back Social History date description facility 2022-10-21 00:00 Current some day smoker [facility] Vital Signs date measurement value units 2022-10-21 00:00 BMI 28.0 kg/m2 2022-10-21 00:00 BP_diastolic 70 mmHg 2022-10-21 00:00 BP_systolic 110 mmHg 2022-10-21 00:00 heart_rate 75 /min 2022-10-21 00:00 height_metric 167.64 cm 2022-10-21 00:00 height_standard 66 in 2022-10-21 00:00 o2_saturation 98 % 2022-10-21 00:00 weight_metric 78.92 kg 2022-10-21 00:00 weight_standard 173.99 lb
[2022-12-22 19:09] LABS: BASOPHILS # (AUTO) 0.1 10^3/uL (0.0-0.1); EOSINOPHILS # (AUTO) 0.1 10^3/uL (0.0-0.7); EOSINOPHILS % (AUTO) 0.9 %; HCT - HEMATOCRIT 42.2 % (37.0-47.0); HGB - HEMOGLOBIN 13.7 g/dL (12.0-16.0); LYMPHOCYTES # (AUTO) 2.4 10^3/uL (1.5-3.5); LYMPHOCYTES % (AUTO) 26.1 %; MEAN CORPUSCULAR HEMOGLOBIN 29.7 pg (27.0-31.0); MEAN CORPUSCULAR HGB CONC 32.5 g/dL (32.0-36.0); MEAN CORPUSCULAR VOLUME 91.3 fL (81.0-99.0); MEAN PLATELET VOLUME 10.6 fL (7.9-10.8); MONOCYTES # (AUTO) 0.5 10^3/uL (0.0-1.0); MONOCYTES % (AUTO) 5.9 %; NEUTROPHILS % (AUTO) 65.9 %; PLT - PLATELET COUNT 229 10^3/uL (130-450); RED BLOOD COUNT 4.62 10^6/uL (4.20-5.40); RED CELL DISTRIBUTION WIDTH 14.4 % (12.0-15.0); WHITE BLOOD COUNT 9.1 x10^3/uL (4.8-10.8)
[2022-12-22 19:23] LABS: ALBUMIN/GLOBULIN RATIO 1.3 (1.0-2.2); BILIRUBIN,TOTAL 0.7 mg/dL (0.2-1.0); CALCIUM 8.7 mg/dL (8.5-10.3); CREATININE 1.4 mg/dL (0.4-1.0); POTASSIUM 3.5 mmol/L (3.5-5.0)
[2022-12-22] MEDS ORDERED: iohexoL-300 100 ML VIAL ONE (20:10)
[2022-12-22] MEDS ORDERED: SODIUM CHLORIDE 0.9% 500 ML IV STA (20:11)
--- NOTE | 2022-12-22 20:53 | ED Physician Documentation ---
History of Present Illness - Stated complaint Stated Complaint: DIZZINESS - Chief complaint Chief Complaint: Neuro - History obtained from History obtained from: Patient - History of Present Illness Timing: How many days ago (2-3) Pain level max: 0 Pain level now: 0 - Additonal information Additional information: HPI from patient. Patient complains of 2 to 3 days of episodic dizziness with "head alba" (per patient), lightheadedness, generalized weakness, diaphoresis.Some of these episodes have been associated with right anterior pleuritic chest pain, which she continues to have even at the time of this H&P.Denies leg swelling, denies recent travel. She denies history of similar symptoms.She denies palpi tations.She says the symptoms tend to be incited by standing up, but otherwise no ameliorating or exacerbating factors that she has noticed. Review of Systems Constitutional: reports: Sweats. denies: Fever Eyes: denies: Loss of vision, Decreased vision Cardiac: reports: Chest pain / pressure. denies: Palpitations, Pedal edema, Calf pain Respiratory: denies: Dyspnea GI: denies: Abdominal Pain, Nausea, Vomiting : denies: Dysuria, Frequency Neurologic: reports: Generalized weakness (episodic). 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: Other : Chronic bladder infection HEENT: None Psych: Anxiety, Panic attacks, Post traumatic stress disorder Musculoskeletal: Chronic back pain Derm: Eczema - Past Surgical History Past Surgical History: Yes General: Colonoscopy, EGD Ortho: Rotator cuff repair, Carpal Tunnel surgery /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 FILM PROCESSING: Tubal ligation HEENT: Tonsil/Adenoidectomy - Present Medications Home Medications: Ambulatory Orders Medication Instructions Recorded Confirmed Simvastatin 20 mg PO QPM 07/15/13 12/22/22 Fluticasone [Flonase] 1 spray INH DAILY 02/13/16 12/22/22 Bacillus Coagulans [Probiotic] 1 each PO DAILY 06/16/16 12/22/22 Wheat Dextrin [Benefiber] 1 each PO DAILY 06/16/16 12/22/22 Gabapentin 300 mg PO TID 06/20/17 12/22/22 Tizanidine HCl 4 mg PO DAILY PRN 06/20/17 12/22/22 Albuterol Sulf [Ventolin Hfa 1 - 2 puffs INH Q4HR PRN #1 inhaler 11/13/17 12/22/22 Inhaler] diazePAM [Diazepam] 5 mg PO DAILY 11/13/17 12/22/22 Fexofenadine HCl 180 mg PO BID 12/22/22 12/22/22 - Allergies Allergies/Adverse Reactions: Allergies Allergy/AdvReac Type Severity Reaction Status Date / Time Penicillins Allergy Severe Hives Verified 12/22/22 18:28 - Social History Does the pt smoke?: Yes Smoking Status: Current every day smoker Does the pt drink ETOH?: No Does the pt have substance abuse?: No - Immunizations Immunizations are current?: Yes - POLST Patient has POLST: No PD ED PE NORMAL - Vitals Vital signs reviewed: Yes - General General: Alert and oriented X 3, No acute distress, Well developed/nourished - HEENT HEENT: PERRL, EOMI (no nystagmus), Moist mucous membranes - Cardiac Cardiac: RRR, No murmur - Respiratory Respiratory: No respiratory distress, Clear bilaterally - Abdomen Abdomen: Soft, Non tender - Extremities Extremities: No edema Results - Vitals Vitals: Oxygen O2 Source Room air - EKG (time done) No standard instances Rate: Rate (enter#) (54) Rhythm: Sinus bradycardia Damar: Normal Intervals: Normal NE QRS: Normal Ischemia: Normal ST segments - Labs Labs: Laboratory Tests 12/22/22 12/22/22 12/22/22 19:05 19:05 19:05 WBC 9.1 RBC 4.62 Hgb 13.7 Hct 42.2 MCV 91.3 MCH 29.7 MCHC 32.5 RDW 14.4 Plt Count 229 MPV 10.6 Neut # (Auto) 6.0 Lymph # (Auto) 2.4 [place] # (Auto) 0.5 Eos # (Auto) 0.1 Baso # (Auto) 0.1 Absolute Nucleated RBC 0.00 Nucleated RBC % 0.0 Sodium 139 Potassium 3.5 Chloride 104 Carbon Dioxide 25 Anion Gap 10.0 BUN 13 Creatinine 1.4 H Estimated GFR (MDRD) 38 L Glucose 84 Calcium 8.7 Total Bilirubin 0.7 AST 15 ALT 16 Alkaline Phosphatase 104 Troponin I High Sens 2.9 Total Protein 7.0 Albumin 4.0 Globulin 3.0 Albumin/Globulin Ratio 1.3 Lipase 126 H - Rads (name of study) CTA chest Radiology: Prelim report reviewed, See rad report PD Medical Decision Making - ED course Complexity details: reviewed results, re-evaluated patient, considered differential, d/w patient ED course: Tests ordered and results reviewed by me: CBC, ER abdominal panel, EKG, troponin, CTA chest. There are no concerning nor diagnostic findings on the blood tests. Mildly elevated lipase is noted (126); she has no abdominal complaints no abdominal tenderness, and thus this is an incidental and noncontributory finding. Her high-sensitivity troponin is normal and no concerning findings on EKG (sinus bradycardia but normotensive in ED). CTA chest is without evidence of active/acute abnormality (specifically, no PE, no PTX, no airspace disease). Results reviewed with patient. Cause of symptoms is unclear at this time. Usual return precautions discussed. I instructed patient to follow up with her primary care provider for reevaluation, next available appointment Departure - Departure Disposition: 01 Home, Self Care Clinical Impression: Near syncope Condition: Good Instructions: ED Near Syncope Unkn Follow-Up: Filiberto Vicente MD [Primary Care Provider] - Comments: There were no concerning or diagnostic results of the blood tests performed tonight.The tests performed included an EKG which had no concerning abnormalities as well as a cardiac enzyme blood test which also was normal. The CT scan of your chest also had no concerning findings; specifically, no evidence of a blood clot in the lung, no evidence of any tearing of any of the major blood vessels in your chest. The cause of your symptoms is not apparent at this time. As we discussed, you should follow-up with your primary care provider (next available appointment); further tests might be indicated even if your symptoms do not recur. Discharge Date/Time: 12/22/22 22:12
--- NOTE | 2022-12-22 21:14 | CT Report ---
PROCEDURE: ANGIO CHEST W/WO INDICATIONS: pleuritic CP CONTRAST: 80mL Omni 300 TECHNIQUE: After the administration of intravenous contrast, 2 mm axial images were acquired from the pulmonary apices to the posterior costophrenic angles during the arterial phase. In addition, 1 mm lung kernel and 5 mm soft tissue kernel reconstructions were performed. 3-dimensional coronal oblique maximum int ensity projection (MIP) reformats, 8 mm axial MIP, and 5 mm coronal and sagittal MPR reformats were t hen performed through the thorax. For radiation dose reduction, the following was used: automated exp osure control, adjustment of mA and/or kV according to patient size. COMPARISON: Chest x-ray 11/13/2017. CT abdomen pelvis 12/02/2020. FINDINGS: Image quality: Excellent. Pulmonary arteries: Pulmonary arteries are normal in size, and demonstrate no intraluminal filling d efects to suggest central pulmonary embolism. Lower Neck: No lymphadenopathy by size criteria. Thyroid: Visualized thyroid demonstrates no discrete nodules. Axillae: No lymphadenopathy by size criteria. Chest Wall: Unremarkable. Bones: Visualized osseous structures demonstrate no suspicious lesions. Lungs and Airways: No acute consolidation. There is mild dependent atelectasis bilaterally. Mild par aseptal emphysematous changes are present. The trachea and central airways are patent. Pleura: No pneumothorax or pleural effusions. Heart: Heart size is normal. No pericardial effusion. Thoracic Vessels: The thoracic aorta is normal in size. Mediastinum and [place]: No lymphadenopathy by size criteria. Esophagus: No wall thickening. No hiatal hernia. Abdomen: Visualized upper abdomen demonstrates bilateral extrarenal pelves in the kidneys which appe ar similar to the prior study. IMPRESSION: 1. No evidence of pulmonary embolism. 2. No acute airspace consolidation. Reviewed by: Federico Champagne MD on 12/22/2022 9:13 PM PST Approved by: Federico Champagne MD on 12/22/2022 9:13 PM PST Station ID: [id number]
[2022-12-22 22:04] VITALS: BP 124/80
[2022-12-22] MEDS ORDERED: iohexoL-300 100 ML VIAL IVP ONE (22:20)
== END 2022-12-22 22:12 | disposition home or self-care (01) ==
LOC: ED 18:22
DX: R55 Syncope and collapse (principal); F17.200 Nicotine dependence, unspecified, uncomplicated
CPT/HCPCS: 36415; 71275; 80053; 83690; 84484; 85025; 93005; 99284; Q9967

== ENCOUNTER 2023-02-27 00:44 | Emergency (ER) | payer MEDICARE, MEDICAID ==
--- OUTSIDE RECORDS SUMMARY | 2023-02-27 00:52 | EXTERNAL MEDICAL SUMMARY RPT | Continuity of Care Document ---
:1960 Author Organization [facility] Address [address] [place] [address] Phone Care Team Providers Name Role Phone Filiberto Vicente Unavailable Unavailable Allergies No information. Encounters No information. Functional Status No information. Immunizations No information. Medications date description facility 2023-01-21 00:00 Oxycodone-Acetaminophen [facility] 2023-01-21 00:00 Ibuprofen [facility] 2022-12-31 00:00 Venlafaxine [facility] 2023-01-07 00:00 Mirtazapine [facility] 2023-01-06 00:00 Atorvastatin [facility] 2023-01-15 00:00 [facility] Problems No information. Procedures No information. Results/Labs test date author facility value unit interpret ation Result panel 1 (unknown) (no (unknown) (unknown) (no value) (units (unk nown) date) unknown) (unknown) (no (unknown) (unknown) .COMPLEX (units (unkno wn) date) 05/24/20 [History unknown) Confirmed 12/31/22] (unknown) (no (unknown) (unknown) 12/31/22 (units (unkno wn) date) unknown) (unknown) (no (unknown) (unknown) 12/31/22] (units (unkn own) date) unknown) (unknown) (no (unknown) (unknown) 05/24/20 (units (unkno wn) date) [History unknown) Confirmed 12/31/22] (unknown) (no (unknown) (unknown) 15:10 (units (unkno wn) date) unknown) (unknown) (no (unknown) (unknown) [id number] (units (unkno wn) date) unknown) (unknown) (no (unknown) (unknown) Age/Sex: 62 / F (units (unknown) date) Date of Service: unknown) (unknown) (no (unknown) (unknown) Allergies (units (unkn own) date) unknown) (unknown) (no (unknown) (unknown) ZULEMA Esparza (units ( unknown) date) [id number] unknown) (unknown) (no (unknown) (unknown) Attending Dr: (units ( unknown) date) Filiberto Vicente MD unknown) (unknown) (no (unknown) (unknown) BMI 27.9 (units (unkno wn) date) unknown) (unknown) (no (unknown) (unknown) BP 130/90 (units (unkn own) date) unknown) (unknown) (no (unknown) (unknown) Blood Pressure (units (unknown) date) Location Lt unknown) brachial (unknown) (no (unknown) (unknown) Breast cancer (units ( unknown) date) (Unknown) unknown) (unknown) (no (unknown) (unknown) Carpal tunnel (units ( unknown) date) syndrome (1981) unknown) (unknown) (no (unknown) (unknown) Chickenpox (units (unk nown) date) (1970) unknown) (unknown) (no (unknown) (unknown) Confirmed (units (unkn own) date) 12/31/22] unknown) (unknown) (no (unknown) (unknown) : 1960 (units (unknown) date) Acct:[id number] unknown) (unknown) (no (unknown) (unknown) Dept at (units (unkno wn) date) . unknown) (unknown) (no (unknown) (unknown) Documented By: (units (unknown) date) Filiberto Vicente MD unknown) 12/31/22 1504 (unknown) (no (unknown) (unknown) Draft (units (unkno wn) date) unknown) (unknown) (no (unknown) (unknown) Family History (units (unknown) date) (Reviewed unknown) 06/14/18 @ 15:21 by Forest Poe MD) (unknown) (no (unknown) (unknown) Father (units (unknown) date) Cancer unknown) (unknown) (no (unknown) (unknown) [facility] ([facility] unknown) (unknown) (no (unknown) (unknown) Height 5 [...] (unknown) Patient: (units (unkno wn) date) Deysi Henderson unknown) MR#: [id number] (unknown) (no (unknown) (unknown) Penicillins (units (un known) date) [PENICILLINS] unknown) Allergy (Unknown, Verified 12/31/22 15:10) (unknown) (no (unknown) (unknown) Plantar (units (unkno wn) date) fibromatosis unknown) (Unknown) (unknown) (no (unknown) (unknown) Position Sitting (units (unknown) date) unknown) (unknown) (no (unknown) (unknown) Pulse 85 (units (unkno wn) date) unknown) (unknown) (no [...] (unknown) (unknown) Visit Reasons: (units (unknown) date) f/u [facility] unknown) ER Dizziness High Blood pressure (unknown) (no (unknown) (unknown) Vitals (units (unkno wn) date) unknown) (unknown) (no (unknown) (unknown) Weight 173 lb 5 (units (unknown) date) oz unknown) (unknown) (no (unknown) (unknown) [Rx Confirmed (units ( unknown) date) 12/31/22] unknown) (unknown) (no (unknown) (unknown) a lot of stress (units (unknown) date) in her life unknown) (unknown) (no (unknown) (unknown) albuterol (units (unkn own) date) sulfate 90 unknown) mcg/actuation aerosol inhaler 2 puff inhalation Q4-6H PRN (unknown) (no (unknown) (unknown) alcohol intake: (units (unknown) date) never unknown) (unknown) (no (unknown) (unknown) atorvastatin 40 (units (unknown) date) mg tablet 40 mg unknown) PO HS #90 tabs 09/22/22 [Rx Confirmed 12/31/22] (unknown) (no (unknown) (unknown) calcium (units (unkno wn) date) carbonate 500 unknown) mg-vitamin D3 10 mcg (400 unit) tablet 1 tab PO DAILY (unknown) (no (unknown) (unknown) diazepam 5 mg (units ( unknown) date) tablet 5 mg PO unknown) BID-TID PRN muscle spasm #60 tabs 07/16/22 [Rx (unknown) (no (unknown) (unknown) f/u [facility] (units (unknown) date) health dizziness unknown) high blood pressure (unknown) (no (unknown) (unknown) feels weak (units (unk nown) date) unknown) (unknown) (no (unknown) (unknown) fluticasone (units (un known) date) propionate 50 unknown) mcg/actuation nasal spray,suspension 1 spray (unknown) (no (unknown) (unknown) gabapentin 300 (units (unknown) date) mg capsule unknown) (Neurontin) 600 mg PO TID #540 caps 05/05/22 [Rx (unknown) (no (unknown) (unknown) grams 12/30/21 (units (unknown) date) [Rx Confirmed unknown) 12/31/22] (unknown) (no (unknown) (unknown) have occurred. (units (unknown) date) If there are any unknown) questions, please contact the Medical Records (unknown) (no (unknown) (unknown) intranasal SEE (units (unknown) date) INSTRUCTIONS PRN unknown) allergy symptoms ##1 09/27/20 [Rx Confirmed (unknown) (no (unknown) (unknown) lightheaded (units (un known) date) unknown) (unknown) (no (unknown) (unknown) may occur. (units (unk nown) date) Occasional unknown) wrong-word or 'sound-alike' substitutions may have (unknown) (no (unknown) (unknown) mirtazapine 30 (units (unknown) date) mg tablet 30 mg unknown) PO BEDTIME #90 tabs 07/15/22 [Rx Confirmed (unknown) (no (unknown) (unknown) multivitamin 1 (units (unknown) date) tab PO DAILY unknown) 02/21/21 [History Confirmed 12/31/22] (unknown) (no (unknown) (unknown) nausea (units (unkno wn) date) unknown) (unknown) (no (unknown) (unknown) no vomiting (units (un known) date) unknown) (unknown) (no (unknown) (unknown) occurred due to (units (unknown) date) the inherent unknown) limitations of voice recognition software. Please (unknown) (no (unknown) (unknown) read the note (units ( unknown) date) carefully and unknown) recognize, using context, where these substitutions (unknown) (no (unknown) (unknown) shaky (units (unkno wn) date) unknown) (unknown) (no (unknown) (unknown) she just does (units ( unknown) date) not feel right unknown) (unknown) (no (unknown) (unknown) shortness of (units (u nknown) date) breath or unknown) wheezing #18 grams 12/29/21 [Rx Confirmed 12/31/22] (unknown) (no (unknown) (unknown) software. (units (unkn own) date) Although every unknown) effort is made to edit content, pattern assembler errors (unknown) (no (unknown) (unknown) substance use (units ( unknown) date) type: does not unknown) use (unknown) (no (unknown) (unknown) tizanidine 4 mg (units (unknown) date) tablet 8 mg PO unknown) TID PRN muscle spasticity #180 tabs 05/05/22 [Rx (unknown) (no (unknown) (unknown) today - she (units (un known) date) feels like unknown) someone hit her in the back of the head, (unknown) (no (unknown) (unknown) tramadol 50 mg [...] PO QAM #90 caps 07/15/22 Result panel 2 (unknown) (no (unknown) (unknown) (no value) (units (unk nown) date) unknown) (unknown) (no (unknown) (unknown) .COMPLEX (units (unkno wn) date) 05/24/20 [History unknown) Confirmed 12/31/22] (unknown) (no (unknown) (unknown) 12/31/22 (units (unkno wn) date) unknown) (unknown) (no (unknown) (unknown) 12/31/22] (units (unkn own) date) unknown) (unknown) (no (unknown) (unknown) 05/24/20 (units (unkno wn) date) [History unknown) Confirmed 12/31/22] (unknown) (no (unknown) (unknown) 15:10 (units (unkno wn) date) unknown) (unknown) (no (unknown) (unknown) [id number] (units (unkno wn) date) unknown) (unknown) (no (unknown) (unknown) Age/Sex: 62 / F (units (unknown) date) Date of Service: unknown) (unknown) (no (unknown) (unknown) Allergies (units (unkn own) date) unknown) (unknown) (no (unknown) (unknown) [place] (units ( unknown) date) [id number] unknown) (unknown) (no (unknown) (unknown) Attending Dr: (units ( unknown) date) Filiberto Vicente MD unknown) (unknown) (no (unknown) (unknown) BMI 27.9 (units (unkno wn) date) unknown) (unknown) (no (unknown) (unknown) BP 130/90 (units (unkn own) date) unknown) (unknown) (no (unknown) (unknown) Blood Pressure (units (unknown) date) Location Lt unknown) brachial (unknown) (no (unknown) (unknown) Breast cancer (units ( unknown) date) (Unknown) unknown) (unknown) (no (unknown) (unknown) Carpal tunnel (units ( unknown) date) syndrome (1981) unknown) (unknown) (no (unknown) (unknown) Chickenpox (units (unk nown) date) (1970) unknown) (unknown) (no (unknown) (unknown) Confirmed (units (unkn own) date) 12/31/22] unknown) (unknown) (no (unknown) (unknown) : 1960 (units (unknown) date) Acct:[id number] unknown) (unknown) (no (unknown) (unknown) Dept at (units (unkno wn) date) . unknown) (unknown) (no (unknown) (unknown) Details: (units (unkno wn) date) unknown) (unknown) (no (unknown) (unknown) Documented By: (units (unknown) date) Filiberto Vicente MD unknown) 12/31/22 1504 (unknown) (no (unknown) (unknown) Draft (units (unkno wn) date) unknown) (unknown) (no (unknown) (unknown) Evaluated the (units ( unknown) date) following day due unknown) to ongoing shakiness. (unknown) (no (unknown) (unknown) Family History (units (unknown) date) (Reviewed unknown) 06/14/18 @ 15:21 by Forest Poe MD) (unknown) (no (unknown) (unknown) Father (units (unknown) date) Cancer unknown) (unknown) (no (unknown) (unknown) [facility] ([facility] ([facility] unknown) (unknown) (no (unknown) (unknown) HPI (units (unkno wn) date) unknown) (unknown) (no (unknown) (unknown) Height 5 [...] (unknown) Patient: (units (unkno wn) date) Deysi Henderson unknown) MR#: [id number] (unknown) (no (unknown) (unknown) Penicillins (units (un known) date) [PENICILLINS] unknown) Allergy (Unknown, Verified 12/31/22 15:10) (unknown) (no (unknown) (unknown) Plantar (units (unkno wn) date) fibromatosis unknown) (Unknown) (unknown) (no (unknown) (unknown) Position Sitting (units (unknown) date) unknown) (unknown) (no (unknown) (unknown) Pulse 85 (units (unkno wn) date) unknown) (unknown) (no [...] (unknown) (unknown) Visit Reasons: (units (unknown) date) f/u [facility] unknown) ER Dizziness High Blood pressure (unknown) (no (unknown) (unknown) Vitals (units (unkno wn) date) unknown) (unknown) (no (unknown) (unknown) Weight 173 lb 5 (units (unknown) date) oz unknown) (unknown) (no (unknown) (unknown) [Rx Confirmed (units ( unknown) date) 12/31/22] unknown) (unknown) (no (unknown) (unknown) a lot of stress (units (unknown) date) in her life unknown) (unknown) (no (unknown) (unknown) albuterol (units (unkn own) date) sulfate 90 unknown) mcg/actuation aerosol inhaler 2 puff inhalation Q4-6H PRN (unknown) (no (unknown) (unknown) alcohol intake: (units (unknown) date) never unknown) (unknown) (no (unknown) (unknown) atorvastatin 40 (units (unknown) date) mg tablet 40 mg unknown) PO HS #90 tabs 09/22/22 [Rx Confirmed 12/31/22] (unknown) (no (unknown) (unknown) calcium (units (unkno wn) date) carbonate 500 unknown) mg-vitamin D3 10 mcg (400 unit) tablet 1 tab PO DAILY (unknown) (no (unknown) (unknown) diazepam 5 mg (units ( unknown) date) tablet 5 mg PO unknown) BID-TID PRN muscle spasm #60 tabs 07/16/22 [Rx (unknown) (no (unknown) (unknown) f/u [facility] (units (unknown) date) health dizziness unknown) high blood pressure (unknown) (no (unknown) (unknown) feels weak (units (unk nown) date) unknown) (unknown) (no (unknown) (unknown) fluticasone (units (un known) date) propionate 50 unknown) mcg/actuation nasal spray,suspension 1 spray (unknown) (no (unknown) (unknown) gabapentin 300 (units (unknown) date) mg capsule unknown) (Neurontin) 600 mg PO TID #540 caps 05/05/22 [Rx (unknown) (no (unknown) (unknown) grams 12/30/21 (units (unknown) date) [Rx Confirmed unknown) 12/31/22] (unknown) (no (unknown) (unknown) have occurred. (units (unknown) date) If there are any unknown) questions, please contact the Medical Records (unknown) (no (unknown) (unknown) intranasal SEE (units (unknown) date) INSTRUCTIONS PRN unknown) allergy symptoms ##1 09/27/20 [Rx Confirmed (unknown) (no (unknown) (unknown) lightheaded (units (un known) date) unknown) (unknown) (no (unknown) (unknown) may occur. (units (unk nown) date) Occasional unknown) wrong-word or 'sound-alike' substitutions may have (unknown) (no (unknown) (unknown) mirtazapine 30 (units (unknown) date) mg tablet 30 mg unknown) PO BEDTIME #90 tabs 07/15/22 [Rx Confirmed (unknown) (no (unknown) (unknown) multivitamin 1 (units (unknown) date) tab PO DAILY unknown) 02/21/21 [History Confirmed 12/31/22] (unknown) (no (unknown) (unknown) nausea (units (unkno wn) date) unknown) (unknown) (no (unknown) (unknown) no vomiting (units (un known) date) unknown) (unknown) (no (unknown) (unknown) occurred due to (units (unknown) date) the inherent unknown) limitations of voice recognition software. Please (unknown) (no (unknown) (unknown) read the note (units ( unknown) date) carefully and unknown) recognize, using context, where these substitutions (unknown) (no (unknown) (unknown) shaky (units (unkno wn) date) unknown) (unknown) (no (unknown) (unknown) she just does (units ( unknown) date) not feel right unknown) (unknown) (no (unknown) (unknown) shortness of (units (u nknown) date) breath or unknown) wheezing #18 grams 12/29/21 [Rx Confirmed 12/31/22] (unknown) (no (unknown) (unknown) software. (units (unkn own) date) Although every unknown) effort is made to edit content, pattern assembler errors (unknown) (no (unknown) (unknown) started abx for (units (unknown) date) skin condition on unknown) 12/29. Unrelated. Impetigo? (unknown) (no (unknown) (unknown) substance use (units ( unknown) date) type: does not unknown) use (unknown) (no (unknown) (unknown) tizanidine 4 mg (units (unknown) date) tablet 8 mg PO unknown) TID PRN muscle spasticity #180 tabs 05/05/22 [Rx (unknown) (no (unknown) (unknown) today - she (units (un known) date) feels like unknown) someone hit her in the back of the head, (unknown) (no (unknown) (unknown) tramadol 50 mg [...] PO QAM #90 caps 07/15/22 Result panel 3 (unknown) (no (unknown) (unknown) (no value) (units (unk nown) date) unknown) (unknown) (no (unknown) (unknown) .COMPLEX (units (unkno wn) date) 05/24/20 [History unknown) Confirmed 12/31/22] (unknown) (no (unknown) (unknown) 12/31/22 (units (unkno wn) date) unknown) (unknown) (no (unknown) (unknown) 12/31/22] (units (unkn own) date) unknown) (unknown) (no (unknown) (unknown) 05/24/20 (units (unkno wn) date) [History unknown) Confirmed 12/31/22] (unknown) (no (unknown) (unknown) 15:10 (units (unkno wn) date) unknown) (unknown) (no (unknown) (unknown) [id number] (units (unkno wn) date) unknown) (unknown) (no (unknown) (unknown) Age/Sex: 62 / F (units (unknown) date) Date of Service: unknown) (unknown) (no (unknown) (unknown) Allergies (units (unkn own) date) unknown) (unknown) (no (unknown) (unknown) [place], [place] (units ( unknown) date) [id number] unknown) (unknown) (no (unknown) (unknown) Attending Dr: (units ( unknown) date) Filiberto Vicente MD unknown) (unknown) (no (unknown) (unknown) BMI 27.9 (units (unkno wn) date) unknown) (unknown) (no (unknown) (unknown) BP 130/90 (units (unkn own) date) unknown) (unknown) (no (unknown) (unknown) Blood Pressure (units (unknown) date) Location Lt unknown) brachial (unknown) (no (unknown) (unknown) Breast cancer (units ( unknown) date) (Unknown) unknown) (unknown) (no (unknown) (unknown) Carpal tunnel (units ( unknown) date) syndrome (1981) unknown) (unknown) (no (unknown) (unknown) Chickenpox (units (unk nown) date) (1970) unknown) (unknown) (no (unknown) (unknown) Confirmed (units (unkn own) date) 12/31/22] unknown) (unknown) (no (unknown) (unknown) : 1960 (units (unknown) date) Acct:[id number] unknown) (unknown) (no (unknown) (unknown) Dept at (units (unkno wn) date) . unknown) (unknown) (no (unknown) (unknown) Details: (units (unkno wn) date) unknown) (unknown) (no (unknown) (unknown) Documented By: (units (unknown) date) Filiberto Vicente MD unknown) 12/31/22 1504 (unknown) (no (unknown) (unknown) Draft (units (unkno wn) date) unknown) (unknown) (no (unknown) (unknown) Evaluated the (units ( unknown) date) following day due unknown) to ongoing shakiness. (unknown) (no (unknown) (unknown) Family History (units (unknown) date) (Reviewed unknown) 06/14/18 @ 15:21 by Forest Poe MD) (unknown) (no (unknown) (unknown) Father (units (unknown) date) Cancer unknown) (unknown) (no (unknown) (unknown) Feels like she (units (unknown) date) is under a lot of unknown) stress. No SI/HI. Has religeous and famiyl (unknown) (no (unknown) (unknown) [facility] ([facility]) (unknown) (no (unknown) (unknown) HPI (units (unkno wn) date) unknown) (unknown) (no (unknown) (unknown) Had nephew (units (unknown) date) of CO poisoning unknown) unexpectedly about 3 weeks ago. (unknown) (no (unknown) (unknown) Height 5 ft [...] + Details unknown) (unknown) (no (unknown) (unknown) Life parnter is (units (unknown) date) on hospice with unknown) ca. (unknown) (no (unknown) (unknown) Loc: [facility] (units [...] (unknown) Patient: (units (unkno wn) date) Deysi Henderson unknown) MR#: [id number] (unknown) (no (unknown) (unknown) Penicillins (units (un known) date) [PENICILLINS] unknown) Allergy (Unknown, Verified 12/31/22 15:10) (unknown) (no (unknown) (unknown) Plantar (units (unkno wn) date) fibromatosis unknown) (Unknown) (unknown) (no (unknown) (unknown) Position Sitting (units (unknown) date) unknown) (unknown) (no (unknown) (unknown) Pulse 85 (units (unkno wn) date) unknown) (unknown) (no [...] (unknown) (unknown) Visit Reasons: (units (unknown) date) f/u [facility] unknown) ER Dizziness High Blood pressure (unknown) (no (unknown) (unknown) Vitals (units (unkno wn) date) unknown) (unknown) (no (unknown) (unknown) Weight 173 lb 5 (units (unknown) date) oz unknown) (unknown) (no (unknown) (unknown) [Rx Confirmed (units ( unknown) date) 12/31/22] unknown) (unknown) (no (unknown) (unknown) a lot of stress (units (unknown) date) in her life unknown) (unknown) (no (unknown) (unknown) albuterol (units (unkn own) date) sulfate 90 unknown) mcg/actuation aerosol inhaler 2 puff inhalation Q4-6H PRN (unknown) (no (unknown) (unknown) alcohol intake: (units (unknown) date) never unknown) (unknown) (no (unknown) (unknown) atorvastatin 40 (units (unknown) date) mg tablet 40 mg unknown) PO HS #90 tabs 09/22/22 [Rx Confirmed 12/31/22] (unknown) (no (unknown) (unknown) calcium (units (unkno wn) date) carbonate 500 unknown) mg-vitamin D3 10 mcg (400 unit) tablet 1 tab PO DAILY (unknown) (no (unknown) (unknown) diazepam 5 mg (units ( unknown) date) tablet 5 mg PO unknown) BID-TID PRN muscle spasm #60 tabs 07/16/22 [Rx (unknown) (no (unknown) (unknown) f/u [facility] (units (unknown) date) health dizziness unknown) high blood pressure (unknown) (no (unknown) (unknown) feels weak (units (unk nown) date) unknown) (unknown) (no (unknown) (unknown) fluticasone (units (un known) date) propionate 50 unknown) mcg/actuation nasal spray,suspension 1 spray (unknown) (no (unknown) (unknown) gabapentin 300 (units (unknown) date) mg capsule unknown) (Neurontin) 600 mg PO TID #540 caps 05/05/22 [Rx (unknown) (no (unknown) (unknown) grams 12/30/21 (units (unknown) date) [Rx Confirmed unknown) 12/31/22] (unknown) (no (unknown) (unknown) have occurred. (units (unknown) date) If there are any unknown) questions, please contact the Medical Records (unknown) (no (unknown) (unknown) intranasal SEE (units (unknown) date) INSTRUCTIONS PRN unknown) allergy symptoms ##1 09/27/20 [Rx Confirmed (unknown) (no (unknown) (unknown) lightheaded (units (un known) date) unknown) (unknown) (no (unknown) (unknown) may occur. (units (unk nown) date) Occasional unknown) wrong-word or 'sound-alike' substitutions may have (unknown) (no (unknown) (unknown) mirtazapine 30 (units (unknown) date) mg tablet 30 mg unknown) PO BEDTIME #90 tabs 07/15/22 [Rx Confirmed (unknown) (no (unknown) (unknown) multivitamin 1 (units (unknown) date) tab PO DAILY unknown) 02/21/21 [History Confirmed 12/31/22] (unknown) (no (unknown) (unknown) nausea (units (unkno wn) date) unknown) (unknown) (no (unknown) (unknown) no vomiting (units (un known) date) unknown) (unknown) (no (unknown) (unknown) occurred due to (units (unknown) date) the inherent unknown) limitations of voice recognition software. Please (unknown) (no (unknown) (unknown) read the note (units ( unknown) date) carefully and unknown) recognize, using context, where these substitutions (unknown) (no (unknown) (unknown) shaky (units (unkno wn) date) unknown) (unknown) (no (unknown) (unknown) she just does (units ( unknown) date) not feel right unknown) (unknown) (no (unknown) (unknown) shortness of (units (u nknown) date) breath or unknown) wheezing #18 grams 12/29/21 [Rx Confirmed 12/31/22] (unknown) (no (unknown) (unknown) software. (units (unkn own) date) Although every unknown) effort is made to edit content, pattern assembler errors (unknown) (no (unknown) (unknown) started abx for (units (unknown) date) skin condition on unknown) 12/29. Unrelated. Impetigo? (unknown) (no (unknown) (unknown) substance use (units ( unknown) date) type: does not unknown) use (unknown) (no (unknown) (unknown) support. (units (unkno wn) date) unknown) (unknown) (no (unknown) (unknown) tizanidine 4 mg (units (unknown) date) tablet 8 mg PO unknown) TID PRN muscle spasticity #180 tabs 05/05/22 [Rx (unknown) (no (unknown) (unknown) today - she (units (un known) date) feels like unknown) someone hit her in the back of the head, (unknown) (no (unknown) (unknown) tramadol 50 mg [...] (unkno wn) date) 05/24/20 [History unknown) Confirmed 12/31/22] (unknown) (no (unknown) (unknown) 12/31/22 (units (unkno wn) date) unknown) (unknown) (no (unknown) (unknown) 12/31/22] (units (unkn own) date) unknown) (unknown) (no (unknown) (unknown) 05/24/20 (units (unkno wn) date) [History unknown) Confirmed 12/31/22] (unknown) (no (unknown) (unknown) 15:10 (units (unkno wn) date) unknown) (unknown) (no (unknown) (unknown) [id number] (units (unkno wn) date) unknown) (unknown) (no (unknown) (unknown) Age/Sex: 62 / F (units (unknown) date) Date of Service: unknown) (unknown) (no (unknown) (unknown) Allergies (units (unkn own) date) unknown) (unknown) (no (unknown) (unknown) [place], [place] (units ( unknown) date) [address] unknown) (unknown) (no (unknown) (unknown) Attending Dr: (units ( unknown) date) Filiberto Vicente MD unknown) (unknown) (no (unknown) (unknown) BMI 27.9 (units (unkno wn) date) unknown) (unknown) (no (unknown) (unknown) BP 130/90 (units (unkn own) date) unknown) (unknown) (no (unknown) (unknown) Blood Pressure (units (unknown) date) Location Lt unknown) brachial (unknown) (no (unknown) (unknown) Breast cancer (units ( unknown) date) (Unknown) unknown) (unknown) (no (unknown) (unknown) Carpal tunnel (units ( unknown) date) syndrome (1981) unknown) (unknown) (no (unknown) (unknown) Chickenpox (units (unk nown) date) (1970) unknown) (unknown) (no (unknown) (unknown) Confirmed (units (unkn own) date) 12/31/22] unknown) (unknown) (no (unknown) (unknown) : 1960 (units (unknown) date) Acct:[id number] unknown) (unknown) (no (unknown) (unknown) Dept at (units (unkno wn) date) . unknown) (unknown) (no (unknown) (unknown) Details: (units (unkno wn) date) unknown) (unknown) (no (unknown) (unknown) Documented By: (units (unknown) date) Filiberto Vicente MD unknown) 12/31/22 1504 (unknown) (no (unknown) (unknown) Draft (units (unkno wn) date) unknown) (unknown) (no (unknown) (unknown) Evaluated the (units ( unknown) date) following day due unknown) to ongoing shakiness. (unknown) (no (unknown) (unknown) Family History (units (unknown) date) (Reviewed unknown) 06/14/18 @ 15:21 by Forest Poe MD) (unknown) (no (unknown) (unknown) Father (units (unknown) date) Cancer unknown) (unknown) (no (unknown) (unknown) Feels like she (units (unknown) date) is under a lot of unknown) stress. No SI/HI. Has religeous and famiyl (unknown) (no (unknown) (unknown) [facility] ([facility]) (unknown) (no (unknown) (unknown) HPI (units (unkno wn) date) unknown) (unknown) (no (unknown) (unknown) Had nephew (units (unknown) date) of CO poisoning unknown) unexpectedly about 3 weeks ago. (unknown) (no (unknown) (unknown) Height 5 ft [...] + Details unknown) (unknown) (no (unknown) (unknown) [facility] [place] [facility] (units (unknown) date) on hospice with unknown) ca. Has similar problem to the cancer that (unknown) (no (unknown) (unknown) Loc: [facility] (units [...] (unknown) Patient: (units (unkno wn) date) Deysi Henderson unknown) MR#: [id number] (unknown) (no (unknown) (unknown) Penicillins (units (un known) date) [PENICILLINS] unknown) Allergy (Unknown, Verified 12/31/22 15:10) (unknown) (no (unknown) (unknown) Plantar (units (unkno wn) date) fibromatosis unknown) (Unknown) (unknown) (no (unknown) (unknown) Position Sitting (units (unknown) date) unknown) (unknown) (no (unknown) (unknown) Pulse 85 (units (unkno wn) date) unknown) (unknown) (no [...] (unknown) (unknown) Visit Reasons: (units (unknown) date) f/u [facility] unknown) ER Dizziness High Blood pressure (unknown) (no (unknown) (unknown) Vitals (units (unkno wn) date) unknown) (unknown) (no (unknown) (unknown) Weight 173 lb 5 (units (unknown) date) oz unknown) (unknown) (no (unknown) (unknown) [Rx Confirmed (units ( unknown) date) 12/31/22] unknown) (unknown) (no (unknown) (unknown) a lot of stress (units (unknown) date) in her life unknown) (unknown) (no (unknown) (unknown) albuterol (units (unkn own) date) sulfate 90 unknown) mcg/actuation aerosol inhaler 2 puff inhalation Q4-6H PRN (unknown) (no (unknown) (unknown) alcohol intake: (units (unknown) date) never unknown) (unknown) (no (unknown) (unknown) atorvastatin 40 (units (unknown) date) mg tablet 40 mg unknown) PO HS #90 tabs 09/22/22 [Rx Confirmed 12/31/22] (unknown) (no (unknown) (unknown) calcium (units (unkno wn) date) carbonate 500 unknown) mg-vitamin D3 10 mcg (400 unit) tablet 1 tab PO DAILY (unknown) (no (unknown) (unknown) diazepam 5 mg (units ( unknown) date) tablet 5 mg PO unknown) BID-TID PRN muscle spasm #60 tabs 07/16/22 [Rx (unknown) (no (unknown) (unknown) f/u [facility] (units (unknown) date) health dizziness unknown) high blood pressure (unknown) (no (unknown) (unknown) feels weak (units (unk nown) date) unknown) (unknown) (no (unknown) (unknown) fluticasone (units (un known) date) propionate 50 unknown) mcg/actuation nasal spray,suspension 1 spray (unknown) (no (unknown) (unknown) gabapentin 300 (units (unknown) date) mg capsule unknown) (Neurontin) 600 mg PO TID #540 caps 05/05/22 [Rx (unknown) (no (unknown) (unknown) grams 12/30/21 (units (unknown) date) [Rx Confirmed unknown) 12/31/22] (unknown) (no (unknown) (unknown) have occurred. (units (unknown) date) If there are any unknown) questions, please contact the Medical Records (unknown) (no (unknown) (unknown) intranasal SEE (units (unknown) date) INSTRUCTIONS PRN unknown) allergy symptoms ##1 09/27/20 [Rx Confirmed (unknown) (no (unknown) (unknown) killed her (units (unk nown) date) mohter. unknown) (unknown) (no (unknown) (unknown) lightheaded (units (un known) date) unknown) (unknown) (no (unknown) (unknown) may occur. (units (unk nown) date) Occasional unknown) wrong-word or 'sound-alike' substitutions may have (unknown) (no (unknown) (unknown) mirtazapine 30 (units (unknown) date) mg tablet 30 mg unknown) PO BEDTIME #90 tabs 07/15/22 [Rx Confirmed (unknown) (no (unknown) (unknown) multivitamin 1 (units (unknown) date) tab PO DAILY unknown) 02/21/21 [History Confirmed 12/31/22] (unknown) (no (unknown) (unknown) nausea (units (unkno wn) date) unknown) (unknown) (no (unknown) (unknown) no vomiting (units (un known) date) unknown) (unknown) (no (unknown) (unknown) occurred due to (units (unknown) date) the inherent unknown) limitations of voice recognition software. Please (unknown) (no (unknown) (unknown) read the note (units ( unknown) date) carefully and unknown) recognize, using context, where these substitutions (unknown) (no (unknown) (unknown) shaky (units (unkno wn) date) unknown) (unknown) (no (unknown) (unknown) she just does (units ( unknown) date) not feel right unknown) (unknown) (no (unknown) (unknown) shortness of (units (u nknown) date) breath or unknown) wheezing #18 grams 12/29/21 [Rx Confirmed 12/31/22] (unknown) (no (unknown) (unknown) software. (units (unkn own) date) Although every unknown) effort is made to edit content, pattern assembler errors (unknown) (no (unknown) (unknown) started abx for (units (unknown) date) skin condition on unknown) 12/29. Unrelated. Impetigo? (unknown) (no (unknown) (unknown) substance use (units ( unknown) date) type: does not unknown) use (unknown) (no (unknown) (unknown) support. (units (unkno wn) date) unknown) (unknown) (no (unknown) (unknown) tizanidine 4 mg (units (unknown) date) tablet 8 mg PO unknown) TID PRN muscle spasticity #180 tabs 05/05/22 [Rx (unknown) (no (unknown) (unknown) today - she (units (un known) date) feels like unknown) someone hit her in the back of the head, (unknown) (no (unknown) (unknown) tramadol 50 mg [...] PO QAM #90 caps 07/15/22 Result panel 5 (unknown) (no (unknown) (unknown) (no value) (units (unk nown) date) unknown) (unknown) (no (unknown) (unknown) .COMPLEX (units (unkno wn) date) 05/24/20 [History unknown) Confirmed 12/31/22] (unknown) (no (unknown) (unknown) 12/31/22 [Rx (units (u nknown) date) Confirmed unknown) 12/31/22] (unknown) (no (unknown) (unknown) 12/31/22 (units (unkno wn) date) unknown) (unknown) (no (unknown) (unknown) 12/31/22] (units (unkn own) date) unknown) (unknown) (no (unknown) (unknown) 05/24/20 (units (unkno wn) date) [History unknown) Confirmed 12/31/22] (unknown) (no (unknown) (unknown) 15:10 (units (unkno wn) date) unknown) (unknown) (no (unknown) (unknown) [id number] (units (unkno wn) date) unknown) (unknown) (no (unknown) (unknown) Age/Sex: 62 / F (units (unknown) date) Date of Service: unknown) (unknown) (no (unknown) (unknown) Allergies (units (unkn own) date) unknown) (unknown) (no (unknown) (unknown) [place], [place] (units ( unknown) date) [id number] unknown) (unknown) (no (unknown) (unknown) Assessment + (units (u nknown) date) Plan unknown) (unknown) (no (unknown) (unknown) Attending Dr: (units ( unknown) date) Filiberto Vicente MD unknown) (unknown) (no (unknown) (unknown) BMI 27.9 (units (unkno wn) date) unknown) (unknown) (no (unknown) (unknown) BP 130/90 (units (unkn own) date) unknown) (unknown) (no (unknown) (unknown) Blood Pressure (units (unknown) date) Location Lt unknown) brachial (unknown) (no (unknown) (unknown) Breast cancer (units ( unknown) date) (Unknown) unknown) (unknown) (no (unknown) (unknown) Carpal tunnel (units ( unknown) date) syndrome (1981) unknown) (unknown) (no (unknown) (unknown) Changed (units (unkno wn) date) unknown) (unknown) (no (unknown) (unknown) Chickenpox (units (unk nown) date) (1970) unknown) (unknown) (no (unknown) (unknown) Confirmed (units (unkn own) date) 12/31/22] unknown) (unknown) (no (unknown) (unknown) : 1960 (units (unknown) date) Acct:[id number] unknown) (unknown) (no (unknown) (unknown) Dept at (units (unkno wn) date) . unknown) (unknown) (no (unknown) (unknown) Details: (units (unkno wn) date) unknown) (unknown) (no (unknown) (unknown) Documented By: (units (unknown) date) Filiberto Vicente MD unknown) 12/31/22 1504 (unknown) (no (unknown) (unknown) Draft (units (unkno wn) date) unknown) (unknown) (no (unknown) (unknown) Evaluated the (units ( unknown) date) following day due unknown) to ongoing shakiness. (unknown) (no (unknown) (unknown) Family History (units (unknown) date) (Reviewed unknown) 06/14/18 @ 15:21 by Forest Poe MD) (unknown) (no (unknown) (unknown) Father (units (unknown) date) Cancer unknown) (unknown) (no (unknown) (unknown) Feels like she (units (unknown) date) is under a lot of unknown) stress. No SI/HI. Has religeous and famiyl (unknown) (no (unknown) (unknown) [facility] ([facility] ([facility] unknown) (unknown) (no (unknown) (unknown) From venlafaxine (units (unknown) date) ER 75 mg PO QAM unknown) 90 caps 1RF (unknown) (no (unknown) (unknown) HPI (units (unkno wn) date) unknown) (unknown) (no (unknown) (unknown) Had nephew (units (unknown) date) of CO poisoning unknown) unexpectedly about 3 weeks ago. (unknown) (no (unknown) (unknown) Height 5 ft [...] + Details unknown) (unknown) (no (unknown) (unknown) [facility] [place] is (units (unknown) date) on hospice with unknown) ca. Has similar problem to the cancer that (unknown) (no (unknown) (unknown) Loc: [facility] (units [...] (unknown) Patient: (units (unkno wn) date) Deysi Henderson unknown) MR#: [id number] (unknown) (no (unknown) (unknown) Penicillins (units (un known) date) [PENICILLINS] unknown) Allergy (Unknown, Verified 12/31/22 15:10) (unknown) (no (unknown) (unknown) Plantar (units (unkno wn) date) fibromatosis unknown) (Unknown) (unknown) (no (unknown) (unknown) Position Sitting (units (unknown) date) unknown) (unknown) (no (unknown) (unknown) Pulse 85 (units (unkno wn) date) unknown) (unknown) (no [...] using voice recognition (unknown) (no (unknown) (unknown) To venlafaxine (units (unknown) date) ER 150 mg PO unknown) DAILY 90 caps 1RF (unknown) (no (unknown) (unknown) Tobacco + (units (unkn own) date) Substance Use unknown) (unknown) (no (unknown) (unknown) Tobacco Status (units (unknown) date) unknown) (unknown) (no (unknown) (unknown) Visit Reasons: (units (unknown) date) f/u [facility] unknown) ER Dizziness High Blood pressure (unknown) (no (unknown) (unknown) Vitals (units (unkno wn) date) unknown) (unknown) (no (unknown) (unknown) Weight 173 lb 5 (units (unknown) date) oz unknown) (unknown) (no (unknown) (unknown) a lot of stress (units (unknown) date) in her life unknown) (unknown) (no (unknown) (unknown) albuterol (units (unkn own) date) sulfate 90 unknown) mcg/actuation aerosol inhaler 2 puff inhalation Q4-6H PRN (unknown) (no (unknown) (unknown) alcohol intake: (units (unknown) date) never unknown) (unknown) (no (unknown) (unknown) atorvastatin 40 (units (unknown) date) mg tablet 40 mg unknown) PO HS #90 tabs 09/22/22 [Rx Confirmed 12/31/22] (unknown) (no (unknown) (unknown) calcium (units (unkno wn) date) carbonate 500 unknown) mg-vitamin D3 10 mcg (400 unit) tablet 1 tab PO DAILY (unknown) (no (unknown) (unknown) diazepam 5 mg (units ( unknown) date) tablet 5 mg PO unknown) BID-TID PRN muscle spasm #60 tabs 07/16/22 [Rx (unknown) (no (unknown) (unknown) f/u [facility] (units (unknown) date) health dizziness unknown) high blood pressure (unknown) (no (unknown) (unknown) feels weak (units (unk nown) date) unknown) (unknown) (no (unknown) (unknown) fluticasone (units (un known) date) propionate 50 unknown) mcg/actuation nasal spray,suspension 1 spray (unknown) (no (unknown) (unknown) gabapentin 300 (units (unknown) date) mg capsule unknown) (Neurontin) 600 mg PO TID #540 caps 05/05/22 [Rx (unknown) (no (unknown) (unknown) grams 12/30/21 (units (unknown) date) [Rx Confirmed unknown) 12/31/22] (unknown) (no (unknown) (unknown) have occurred. (units (unknown) date) If there are any unknown) questions, please contact the Medical Records (unknown) (no (unknown) (unknown) intranasal SEE (units (unknown) date) INSTRUCTIONS PRN unknown) allergy symptoms ##1 09/27/20 [Rx Confirmed (unknown) (no (unknown) (unknown) killed her (units (unk nown) date) mohter. unknown) (unknown) (no (unknown) (unknown) lightheaded (units (un known) date) unknown) (unknown) (no (unknown) (unknown) may occur. (units (unk nown) date) Occasional unknown) wrong-word or 'sound-alike' substitutions may have (unknown) (no (unknown) (unknown) mirtazapine 30 (units (unknown) date) mg tablet 30 mg unknown) PO BEDTIME #90 tabs 07/15/22 [Rx Confirmed (unknown) (no (unknown) (unknown) multivitamin 1 (units (unknown) date) tab PO DAILY unknown) 02/21/21 [History Confirmed 12/31/22] (unknown) (no (unknown) (unknown) nausea (units (unkno wn) date) unknown) (unknown) (no (unknown) (unknown) no vomiting (units (un known) date) unknown) (unknown) (no (unknown) (unknown) occurred due to (units (unknown) date) the inherent unknown) limitations of voice recognition software. Please (unknown) (no (unknown) (unknown) read the note (units ( unknown) date) carefully and unknown) recognize, using context, where these substitutions (unknown) (no (unknown) (unknown) shaky (units (unkno wn) date) unknown) (unknown) (no (unknown) (unknown) she just does (units ( unknown) date) not feel right unknown) (unknown) (no (unknown) (unknown) shortness of (units (u nknown) date) breath or unknown) wheezing #18 grams 12/29/21 [Rx Confirmed 12/31/22] (unknown) (no (unknown) (unknown) software. (units (unkn own) date) Although every unknown) effort is made to edit content, pattern assembler errors (unknown) (no (unknown) (unknown) started abx for (units (unknown) date) skin condition on unknown) 12/29. Unrelated. Impetigo? (unknown) (no (unknown) (unknown) substance use (units ( unknown) date) type: does not unknown) use (unknown) (no (unknown) (unknown) support. (units (unkno wn) date) unknown) (unknown) (no (unknown) (unknown) tizanidine 4 mg (units (unknown) date) tablet 8 mg PO unknown) TID PRN muscle spasticity #180 tabs 05/05/22 [Rx (unknown) (no (unknown) (unknown) today - she (units (un known) date) feels like unknown) someone hit her in the back of the head, (unknown) (no (unknown) (unknown) tramadol 50 mg (units (unknown) date) tablet 50 mg PO unknown) QID PRN pain #60 tabs 07/16/22 [Rx Confirmed (unknown) (no (unknown) (unknown) triamcinolone (units ( unknown) date) acetonide 0.1 % unknown) topical cream 1 applic topical BID PRN rash #30 (unknown) (no (unknown) (unknown) venlafaxine 150 (units (unknown) date) mg unknown) capsule,extended release 24 hr 150 mg PO DAILY #90 caps Result panel 6 (unknown) (no (unknown) (unknown) (no value) (units (unk nown) date) unknown) (unknown) (no (unknown) (unknown) .COMPLEX (units (unkno wn) date) 05/24/20 [History unknown) Confirmed 12/31/22] (unknown) (no (unknown) (unknown) 12/31/22 [Rx (units (u nknown) date) Confirmed unknown) 12/31/22] (unknown) (no (unknown) (unknown) 12/31/22 (units (unkno wn) date) unknown) (unknown) (no (unknown) (unknown) 12/31/22] (units (unkn own) date) unknown) (unknown) (no (unknown) (unknown) 05/24/20 (units (unkno wn) date) [History unknown) Confirmed 12/31/22] (unknown) (no (unknown) (unknown) 15:10 (units (unkno wn) date) unknown) (unknown) (no (unknown) (unknown) [id number] (units (unkno wn) date) unknown) (unknown) (no (unknown) (unknown) Age/Sex: 62 / F (units (unknown) date) Date of Service: unknown) (unknown) (no (unknown) (unknown) Allergies (units (unkn own) date) unknown) (unknown) (no (unknown) (unknown) [place], [place] (units ( unknown) date) [id number] unknown) (unknown) (no (unknown) (unknown) Assessment + (units (u nknown) date) Plan unknown) (unknown) (no (unknown) (unknown) Attending Dr: (units ( unknown) date) Filiberto Vicente MD unknown) (unknown) (no (unknown) (unknown) BMI 27.9 (units (unkno wn) date) unknown) (unknown) (no (unknown) (unknown) BP 130/90 (units (unkn own) date) unknown) (unknown) (no (unknown) (unknown) Blood Pressure (units (unknown) date) Location Lt unknown) brachial (unknown) (no (unknown) (unknown) Breast cancer (units ( unknown) date) (Unknown) unknown) (unknown) (no (unknown) (unknown) Carpal tunnel (units ( unknown) date) syndrome (1981) unknown) (unknown) (no (unknown) (unknown) Changed (units (unkno wn) date) unknown) (unknown) (no (unknown) (unknown) Chickenpox (units (unk nown) date) (1970) unknown) (unknown) (no (unknown) (unknown) Chief Complaint (units (unknown) date) unknown) (unknown) (no (unknown) (unknown) Chief Complaint: (units (unknown) date) ED follow-up, unknown) shaking (unknown) (no (unknown) (unknown) Confirmed (units (unkn own) date) 12/31/22] unknown) (unknown) (no (unknown) (unknown) : 1960 (units (unknown) date) Acct:[id number] unknown) (unknown) (no (unknown) (unknown) Dept at (units (unkno wn) date) . unknown) (unknown) (no (unknown) (unknown) Details: (units (unkno wn) date) unknown) (unknown) (no (unknown) (unknown) Documented By: (units (unknown) date) Filiberto Vicente MD unknown) 12/31/22 1504 (unknown) (no (unknown) (unknown) Draft (units (unkno wn) date) unknown) (unknown) (no (unknown) (unknown) Evaluated the (units ( unknown) date) following day due unknown) to ongoing shakiness. (unknown) (no (unknown) (unknown) Family History (units (unknown) date) (Reviewed unknown) 06/14/18 @ 15:21 by Forest Poe MD) (unknown) (no (unknown) (unknown) Father (units (unknown) date) Cancer unknown) (unknown) (no (unknown) (unknown) Feels like she (units (unknown) date) is under a lot of unknown) stress. No SI/HI. Has religeous and famiyl (unknown) (no (unknown) (unknown) [facility] ([facility] ([facility] unknown) (unknown) (no (unknown) (unknown) From venlafaxine (units (unknown) date) ER 75 mg PO QAM unknown) 90 caps 1RF (unknown) (no (unknown) (unknown) HPI (units (unkno wn) date) unknown) (unknown) (no (unknown) (unknown) Had nephew (units (unknown) date) of CO poisoning unknown) unexpectedly about 3 weeks ago. (unknown) (no (unknown) (unknown) Height 5 ft [...] + Details unknown) (unknown) (no (unknown) (unknown) [facility] is (units (unknown) date) on hospice with unknown) ca. Has similar problem to the cancer that (unknown) (no (unknown) (unknown) Loc: [facility] (units [...] (unknown) Patient: (units (unkno wn) date) Deysi Henderson unknown) MR#: [id number] (unknown) (no (unknown) (unknown) Penicillins (units (un known) date) [PENICILLINS] unknown) Allergy (Unknown, Verified 12/31/22 15:10) (unknown) (no (unknown) (unknown) Plantar (units (unkno wn) date) fibromatosis unknown) (Unknown) (unknown) (no (unknown) (unknown) Position Sitting (units (unknown) date) unknown) (unknown) (no (unknown) (unknown) Pulse 85 (units (unkno wn) date) unknown) (unknown) (no [...] using voice recognition (unknown) (no (unknown) (unknown) To venlafaxine (units (unknown) date) ER 150 mg PO unknown) DAILY 90 caps 1RF (unknown) (no (unknown) (unknown) Tobacco + (units (unkn own) date) Substance Use unknown) (unknown) (no (unknown) (unknown) Tobacco Status (units (unknown) date) unknown) (unknown) (no (unknown) (unknown) Visit Reasons: (units (unknown) date) f/u [facility] unknown) ER Dizziness High Blood pressure (unknown) (no (unknown) (unknown) Vitals (units (unkno wn) date) unknown) (unknown) (no (unknown) (unknown) Weight 173 lb 5 (units (unknown) date) oz unknown) (unknown) (no (unknown) (unknown) a lot of stress (units (unknown) date) in her life unknown) (unknown) (no (unknown) (unknown) albuterol (units (unkn own) date) sulfate 90 unknown) mcg/actuation aerosol inhaler 2 puff inhalation Q4-6H PRN (unknown) (no (unknown) (unknown) alcohol intake: (units (unknown) date) never unknown) (unknown) (no (unknown) (unknown) atorvastatin 40 (units (unknown) date) mg tablet 40 mg unknown) PO HS #90 tabs 01/15/23 [Rx] (unknown) (no (unknown) (unknown) calcium (units (unkno wn) date) carbonate 500 unknown) mg-vitamin D3 10 mcg (400 unit) tablet 1 tab PO DAILY (unknown) (no (unknown) (unknown) diazepam 5 mg (units ( unknown) date) tablet 5 mg PO unknown) BID-TID PRN muscle spasm #60 tabs 07/16/22 [Rx (unknown) (no (unknown) (unknown) f[facility]u [facility] (units (unknown) date) health dizziness unknown) high blood pressure (unknown) (no (unknown) (unknown) feels weak (units (unk nown) date) unknown) (unknown) (no (unknown) (unknown) fluticasone (units (un known) date) propionate 50 unknown) mcg/actuation nasal spray,suspension 1 spray (unknown) (no (unknown) (unknown) gabapentin 300 (units (unknown) date) mg capsule unknown) (Neurontin) 600 mg PO TID #540 caps 05/05/22 [Rx (unknown) (no (unknown) (unknown) grams 12/30/21 (units (unknown) date) [Rx Confirmed unknown) 12/31/22] (unknown) (no (unknown) (unknown) have occurred. (units (unknown) date) If there are any unknown) questions, please contact the Medical Records (unknown) (no (unknown) (unknown) intranasal SEE (units (unknown) date) INSTRUCTIONS PRN unknown) allergy symptoms ##1 09/27/20 [Rx Confirmed (unknown) (no (unknown) (unknown) killed her (units (unk nown) date) mohter. unknown) (unknown) (no (unknown) (unknown) lightheaded (units (un known) date) unknown) (unknown) (no (unknown) (unknown) may occur. (units (unk nown) date) Occasional unknown) wrong-word or 'sound-alike' substitutions may have (unknown) (no (unknown) (unknown) mirtazapine 30 (units (unknown) date) mg tablet 30 mg unknown) PO BEDTIME #90 tabs 01/07/23 [Rx] (unknown) (no (unknown) (unknown) multivitamin 1 (units (unknown) date) tab PO DAILY unknown) 02/21/21 [History Confirmed 12/31/22] (unknown) (no (unknown) (unknown) nausea (units (unkno wn) date) unknown) (unknown) (no (unknown) (unknown) no vomiting (units (un known) date) unknown) (unknown) (no (unknown) (unknown) occurred due to (units (unknown) date) the inherent unknown) limitations of voice recognition software. Please (unknown) (no (unknown) (unknown) read the note (units ( unknown) date) carefully and unknown) recognize, using context, where these substitutions (unknown) (no (unknown) (unknown) shaky (units (unkno wn) date) unknown) (unknown) (no (unknown) (unknown) she just does (units ( unknown) date) not feel right unknown) (unknown) (no (unknown) (unknown) shortness of (units (u nknown) date) breath or unknown) wheezing #18 grams 12/29/21 [Rx Confirmed 12/31/22] (unknown) (no (unknown) (unknown) software. (units (unkn own) date) Although every unknown) effort is made to edit content, pattern assembler errors (unknown) (no (unknown) (unknown) started abx for (units (unknown) date) skin condition on unknown) 12/29. Unrelated. Impetigo? (unknown) (no (unknown) (unknown) substance use (units ( unknown) date) type: does not unknown) use (unknown) (no (unknown) (unknown) support. (units (unkno wn) date) unknown) (unknown) (no (unknown) (unknown) tizanidine 4 mg (units (unknown) date) tablet 8 mg PO unknown) TID PRN muscle spasticity #180 tabs 05/05/22 [Rx (unknown) (no (unknown) (unknown) today - she (units (un known) date) feels like unknown) someone hit her in the back of the head, (unknown) (no (unknown) (unknown) tramadol 50 mg (units (unknown) date) tablet 50 mg PO unknown) QID PRN pain #60 tabs 07/16/22 [Rx Confirmed (unknown) (no (unknown) (unknown) triamcinolone (units ( unknown) date) acetonide 0.1 % unknown) topical cream 1 applic topical BID PRN rash #30 (unknown) (no (unknown) (unknown) venlafaxine 150 (units (unknown) date) mg unknown) capsule,extended release 24 hr 150 mg PO DAILY #90 caps Result panel 7 (unknown) (no (unknown) (unknown) (no value) (units (unk nown) date) unknown) (unknown) (no (unknown) (unknown) (1) Panic attack: (units (unknown) date) unknown) (unknown) (no (unknown) (unknown) .COMPLEX 05/24/20 (units (unknown) date) [History Confirmed unknown) 12/31/22] (unknown) (no (unknown) (unknown) 12/31/22 [Rx (units (u nknown) date) Confirmed unknown) 12/31/22] (unknown) (no (unknown) (unknown) 12/31/22 (units (unkno wn) date) unknown) (unknown) (no (unknown) (unknown) 12/31/22] (units (unkn own) date) unknown) (unknown) (no (unknown) (unknown) 01/15/23 1605 (units ( unknown) date) unknown) (unknown) (no (unknown) (unknown) 05/24/20 [History (units (unknown) date) Confirmed unknown) 12/31/22] (unknown) (no (unknown) (unknown) 15:10 (units (unkno wn) date) unknown) (unknown) (no (unknown) (unknown) [id number] (units (unkno wn) date) unknown) (unknown) (no (unknown) (unknown) Age/Sex: 62 / F (units (unknown) date) Date of Service: unknown) (unknown) (no (unknown) (unknown) All systems (units (un known) date) reviewed + are unknown) unremarkable except as noted in HPI and below (unknown) (no (unknown) (unknown) Allergies (units (unkn own) date) unknown) (unknown) (no (unknown) (unknown) [place], [place] (units ( unknown) date) [id number] unknown) (unknown) (no (unknown) (unknown) Assessment + Plan (units (unknown) date) unknown) (unknown) (no (unknown) (unknown) Attending Dr: (units ( unknown) date) Filiberto Vicente MD unknown) (unknown) (no (unknown) (unknown) BMI 27.9 (units (unkno wn) date) unknown) (unknown) (no (unknown) (unknown) BP 130/90 (units (unkn own) date) unknown) (unknown) (no (unknown) (unknown) Blood Pressure (units (unknown) date) Location Lt unknown) brachial (unknown) (no (unknown) (unknown) Breast cancer (units ( unknown) date) (Unknown) unknown) (unknown) (no (unknown) (unknown) Carpal tunnel (units ( unknown) date) syndrome (1981) unknown) (unknown) (no (unknown) (unknown) Changed (units (unkno wn) date) unknown) (unknown) (no (unknown) (unknown) Chickenpox (1970) (units (unknown) date) unknown) (unknown) (no (unknown) (unknown) Chief Complaint (units (unknown) date) unknown) (unknown) (no (unknown) (unknown) Chief Complaint: (units (unknown) date) ED follow-up, unknown) shaking (unknown) (no (unknown) (unknown) Confirmed (units (unkn own) date) 12/31/22] unknown) (unknown) (no (unknown) (unknown) Const (units (unkno wn) date) unknown) (unknown) (no (unknown) (unknown) : 1960 (units (unknown) date) Acct:[id number] unknown) (unknown) (no (unknown) (unknown) Dept at (units (unkno wn) date) . unknown) (unknown) (no (unknown) (unknown) Details: (units (unkno wn) date) unknown) (unknown) (no (unknown) (unknown) Documented By: (units (unknown) date) Filiberto Vicente MD unknown) 12/31/22 1504 (unknown) (no (unknown) (unknown) Effort + (units (unkno wn) date) Inspection: normal unknown) respiratory effort, able to speak in complete (unknown) (no (unknown) (unknown) Exam (units (unkno wn) date) unknown) (unknown) (no (unknown) (unknown) Family History (units (unknown) date) (Reviewed 06/14/18 unknown) @ 15:21 by Forest Poe MD) (unknown) (no (unknown) (unknown) Father (units (unknown) date) Cancer unknown) (unknown) (no (unknown) (unknown) [facility] ([facility]) (unknown) (no (unknown) (unknown) From venlafaxine (units (unknown) date) ER 75 mg PO QAM 90 unknown) caps 1RF (unknown) (no (unknown) (unknown) General: (units (unkno wn) date) cooperative, unknown) healthy appearing, comfortable and no acute distress (unknown) (no (unknown) (unknown) HPI (units (unkno wn) date) unknown) (unknown) (no (unknown) (unknown) Height 5 ft 6 in (units (unknown) date) unknown) (unknown) (no (unknown) (unknown) History of carpal (units (unknown) date) tunnel release unknown) (1981) (unknown) (no (unknown) (unknown) Hospital notes, (units (unknown) date) workup, and unknown) recommendations reviewed with the patient. I agree (unknown) (no (unknown) (unknown) Hx of tubal [...] Staff unknown) (unknown) (no (unknown) (unknown) Internal Medicine (units (unknown) date) Office Visit unknown) (unknown) (no (unknown) (unknown) Lactobacillus (units ( unknown) date) acidophilus 10 unknown) billion cell capsule See Rx Instructions .Route (unknown) (no (unknown) (unknown) Last Menstural (units (unknown) date) Cycle + Details unknown) (unknown) (no (unknown) (unknown) Loc: [facility] (units (unkno wn) date) unknown) (unknown) (no (unknown) (unknown) Lumbosacral (units (un known) date) neuritis (Unknown) unknown) (unknown) (no (unknown) (unknown) Medical History (units (unknown) date) (Updated 06/11/22 unknown) @ 17:01 by Filiberto Vicente MD) (unknown) (no (unknown) (unknown) Medications (units (un known) date) unknown) (unknown) (no (unknown) (unknown) Medications: (units (u nknown) date) unknown) (unknown) (no (unknown) (unknown) Migraines (units (unkn own) date) (Unknown) unknown) (unknown) (no (unknown) (unknown) Mother (units (unknown) date) No problems noted. unknown) (unknown) (no (unknown) (unknown) Ms. Henderson is (units ( unknown) date) here to follow-up unknown) a recent ED visit for shaking and weakness. She (unknown) (no (unknown) (unknown) [place] (1970) (units (u nknown) date) unknown) (unknown) (no (unknown) (unknown) Nutritional (units (un known) date) Appearance: unknown) overweight (unknown) (no (unknown) (unknown) Orientation: (units (u [...] (unknown) Patient: (units (unkno wn) date) Deysi Henderson unknown) MR#: [id number] (unknown) (no (unknown) (unknown) Penicillins (units (un known) date) [PENICILLINS] unknown) Allergy (Unknown, Verified 12/31/22 15:10) (unknown) (no (unknown) (unknown) Plan (units (unkno wn) date) unknown) (unknown) (no (unknown) (unknown) Plantar (units (unkno wn) date) fibromatosis unknown) (Unknown) (unknown) (no (unknown) (unknown) Position Sitting (units (unknown) date) unknown) (unknown) (no (unknown) (unknown) Pulse 85 (units (unkno wn) date) unknown) (unknown) (no [...] Restless leg (units (u nknown) date) syndrome (Unknown) unknown) (unknown) (no (unknown) (unknown) Signed By: (units (unk nown) date) <Electronically unknown) signed by Filiberto Vicente MD> (unknown) (no (unknown) (unknown) Signed (units (unkno wn) date) unknown) (unknown) (no (unknown) (unknown) Sister (units (unknown) date) No problems noted. unknown) (unknown) (no (unknown) (unknown) Skin cancer (units (un known) date) (melanoma) unknown) (Unknown) (unknown) (no (unknown) (unknown) Smoking Status: (units (unknown) date) Current some day unknown) smoker (3-4 cigarettes a day) (unknown) (no (unknown) (unknown) Started (units (unkno wn) date) antibiotics for a unknown) unknown skin condition on 12/29/2022. He thinks this (unknown) (no (unknown) (unknown) Surgical History (units (unknown) date) (Updated 12/22/20 unknown) @ 09:15 by Filiberto Vicente MD) (unknown) (no (unknown) (unknown) This note may (units ( unknown) date) have been all or unknown) partially generated using voice recognition (unknown) (no (unknown) (unknown) To venlafaxine ER (units (unknown) date) 150 mg PO DAILY 90 unknown) caps 1RF (unknown) (no (unknown) (unknown) Tobacco + (units (unkn own) date) Substance Use unknown) (unknown) (no (unknown) (unknown) Tobacco Status (units (unknown) date) unknown) (unknown) (no (unknown) (unknown) Today, we (units (unkn own) date) discussed ongoing unknown) life stressors. Reports no suicidal or homicidal (unknown) (no (unknown) (unknown) Visit Reasons: (units (unknown) date) f/u [facility] unknown) ER Dizziness High Blood pressure (unknown) (no (unknown) (unknown) Vitals (units (unkno wn) date) unknown) (unknown) (no (unknown) (unknown) Weight 173 lb 5 (units (unknown) date) oz unknown) (unknown) (no (unknown) (unknown) a lot of stress (units (unknown) date) in her life unknown) (unknown) (no (unknown) (unknown) additional (units (unk nown) date) support while she unknown) manages the difficulty she is experiencing. (unknown) (no (unknown) (unknown) albuterol sulfate (units (unknown) date) 90 mcg/actuation unknown) aerosol inhaler 2 puff inhalation Q4-6H PRN (unknown) (no (unknown) (unknown) alcohol intake: (units (unknown) date) never unknown) (unknown) (no (unknown) (unknown) atorvastatin 40 (units (unknown) date) mg tablet 40 mg PO unknown) HS #90 tabs 01/15/23 [Rx] (unknown) (no (unknown) (unknown) calcium carbonate (units (unknown) date) 500 mg-vitamin D3 unknown) 10 mcg (400 unit) tablet 1 tab PO DAILY (unknown) (no (unknown) (unknown) chest. She was (units (unknown) date) discharged without unknown) changes in management. (unknown) (no (unknown) (unknown) consistent with (units (unknown) date) impetigo. Skin unknown) symptoms have largely resolved. (unknown) (no (unknown) (unknown) diaphoresis. (units (u nknown) date) Symptoms were unknown) exacerbated by rapid changes in position. She (unknown) (no (unknown) (unknown) diazepam 5 mg (units ( unknown) date) tablet 5 mg PO unknown) BID-TID PRN muscle spasm #60 tabs 07/16/22 [Rx (unknown) (no (unknown) (unknown) f/u [facility] (units (unknown) date) [facility] dizziness unknown) high blood pressure (unknown) (no (unknown) (unknown) feels weak (units (unk nown) date) unknown) (unknown) (no (unknown) (unknown) fluticasone (units (un known) date) propionate 50 unknown) mcg/actuation nasal spray,suspension 1 spray (unknown) (no (unknown) (unknown) gabapentin 300 mg (units (unknown) date) capsule unknown) (Neurontin) 600 mg PO TID #540 caps 05/05/22 [Rx (unknown) (no (unknown) (unknown) grams 12/30/21 (units (unknown) date) [Rx Confirmed unknown) 12/31/22] (unknown) (no (unknown) (unknown) have occurred. If (units (unknown) date) there are any unknown) questions, please contact the Medical Records (unknown) (no (unknown) (unknown) her mother's (units (u nknown) date) . She also unknown) had a nephew of carbon monoxide poisoning (unknown) (no (unknown) (unknown) ideation. Says (units (unknown) date) that she has unknown) strong episcopalian and family support. Has not had a (unknown) (no (unknown) (unknown) intranasal SEE (units (unknown) date) INSTRUCTIONS PRN unknown) allergy symptoms ##1 09/27/20 [Rx Confirmed (unknown) (no (unknown) (unknown) is unrelated to (units (unknown) date) the other unknown) complaints. Unclear what this was, per description is (unknown) (no (unknown) (unknown) lightheaded (units (un known) date) unknown) (unknown) (no (unknown) (unknown) may occur. (units (unk nown) date) Occasional unknown) wrong-word or 'sound-alike' substitutions may have (unknown) (no (unknown) (unknown) mirtazapine 30 mg (units (unknown) date) tablet 30 mg PO unknown) BEDTIME #90 tabs 01/07/23 [Rx] (unknown) (no (unknown) (unknown) multivitamin 1 (units (unknown) date) tab PO DAILY unknown) 02/21/21 [History Confirmed 12/31/22] (unknown) (no (unknown) (unknown) nausea (units (unkno wn) date) unknown) (unknown) (no (unknown) (unknown) new organic (units (un known) date) illness. Will unknown) increase her venlafaxine temporarily provide some (unknown) (no (unknown) (unknown) no vomiting (units (un known) date) unknown) (unknown) (no (unknown) (unknown) occurred due to (units (unknown) date) the inherent unknown) limitations of voice recognition software. Please (unknown) (no (unknown) (unknown) provided the (units (u nknown) date) additional context unknown) that her life partner is currently on hospice (unknown) (no (unknown) (unknown) read the note (units ( unknown) date) carefully and unknown) recognize, using context, where these substitutions (unknown) (no (unknown) (unknown) recurrence of (units ( unknown) date) symptoms. unknown) (unknown) (no (unknown) (unknown) sentences and no (units (unknown) date) audible wheezes unknown) (unknown) (no (unknown) (unknown) shaky (units (unkno wn) date) unknown) (unknown) (no (unknown) (unknown) she just does not (units (unknown) date) feel right unknown) (unknown) (no (unknown) (unknown) shortness of (units (u nknown) date) breath or wheezing unknown) #18 grams 12/29/21 [Rx Confirmed 12/31/22] (unknown) (no (unknown) (unknown) software. (units (unkn own) date) Although every unknown) effort is made to edit content, pattern assembler errors (unknown) (no (unknown) (unknown) substance use (units ( unknown) date) type: does not use unknown) (unknown) (no (unknown) (unknown) tizanidine 4 mg (units (unknown) date) tablet 8 mg PO TID unknown) PRN muscle spasticity #180 tabs 05/05/22 [Rx (unknown) (no (unknown) (unknown) today - she feels (units (unknown) date) like someone hit unknown) her in the back of the head, (unknown) (no (unknown) (unknown) tramadol 50 mg (units (unknown) date) tablet 50 mg PO unknown) QID PRN pain #60 tabs 07/16/22 [Rx Confirmed (unknown) (no (unknown) (unknown) triamcinolone (units ( unknown) date) acetonide 0.1 % unknown) topical cream 1 applic topical BID PRN rash #30 (unknown) (no (unknown) (unknown) unexpectedly (units (u nknown) date) about 3 weeks ago. unknown) Says that she is under a lot of stress. ED (unknown) (no (unknown) (unknown) venlafaxine 150 (units (unknown) date) mg unknown) capsule,extended release 24 hr 150 mg PO DAILY #90 caps (unknown) (no (unknown) (unknown) was evaluated on (units (unknown) date) 12/22/2022 after unknown) 2-3 days of episodic dizziness, shaking, and (unknown) (no (unknown) (unknown) with cancer. (units (u nknown) date) Coincidentally, unknown) this is the same form of cancer that resulted in (unknown) (no (unknown) (unknown) with the ED (units (unk nown) date) provider that this unknown) was likely anxiety induced and does not reflect a (unknown) (no (unknown) (unknown) workup was (units (unk nown) date) significant for unknown) noncontributory CBC/CMP, normal EKG, and normal CTA Result panel 8 (unknown) (no (unknown) (unknown) (no value) (units (unk nown) date) unknown) (unknown) (no (unknown) (unknown) .COMPLEX (units (unkno wn) date) 05/24/20 [History unknown) Confirmed 01/21/23] (unknown) (no (unknown) (unknown) 12/31/22 [Rx (units (u nknown) date) Confirmed unknown) 01/21/23] (unknown) (no (unknown) (unknown) 01/21/23 (units (unkno wn) date) unknown) (unknown) (no (unknown) (unknown) 01/21/23] (units (unkn own) date) unknown) (unknown) (no (unknown) (unknown) 05/24/20 (units (unkno wn) date) [History unknown) Confirmed 01/21/23] (unknown) (no (unknown) (unknown) 16:29 (units (unkno wn) date) unknown) (unknown) (no (unknown) (unknown) [id number] (units (unkno wn) date) unknown) (unknown) (no (unknown) (unknown) Age/Sex: 62 / F (units (unknown) date) Date of Service: unknown) (unknown) (no (unknown) (unknown) Allergies (units (unkn own) date) unknown) (unknown) (no (unknown) (unknown) ZULEMA Esparza (units ( unknown) date) [id number] unknown) (unknown) (no (unknown) (unknown) Attending Dr: (units ( unknown) date) Filiberto Vicente MD unknown) (unknown) (no (unknown) (unknown) BMI 28.1 (units (unkno wn) date) unknown) (unknown) (no (unknown) (unknown) BP 114/78 (units (unkn own) date) unknown) (unknown) (no (unknown) (unknown) Blood Pressure (units (unknown) date) Location Lt unknown) brachial (unknown) (no (unknown) (unknown) Breast cancer (units ( unknown) date) (Unknown) unknown) (unknown) (no (unknown) (unknown) Carpal tunnel (units ( unknown) date) syndrome (1981) unknown) (unknown) (no (unknown) (unknown) Chickenpox (units (unk nown) date) (1970) unknown) (unknown) (no (unknown) (unknown) Confirmed (units (unkn own) date) 01/21/23] unknown) (unknown) (no (unknown) (unknown) : 1960 (units (unknown) date) Acct:[id number] unknown) (unknown) (no (unknown) (unknown) Dept at (units (unkno wn) date) . unknown) (unknown) (no (unknown) (unknown) Documented By: (units (unknown) date) Filiberto Vicente MD unknown) 01/21/23 1626 (unknown) (no (unknown) (unknown) Draft (units (unkno wn) date) unknown) (unknown) (no (unknown) (unknown) Family History (units (unknown) date) (Reviewed unknown) 06/14/18 @ 15:21 by Forest Poe MD) (unknown) (no (unknown) (unknown) Father (units (unknown) date) Cancer unknown) (unknown) (no (unknown) (unknown) [facility]) (unknown) (no (unknown) (unknown) Height 5 [...] (unknown) Patient: (units (unkno wn) date) Deysi Henderson unknown) MR#: [id number] (unknown) (no (unknown) (unknown) Penicillins (units (un known) date) [PENICILLINS] unknown) Allergy (Unknown, Verified 01/21/23 16:29) (unknown) (no (unknown) (unknown) Plantar (units (unkno wn) date) fibromatosis unknown) (Unknown) (unknown) (no (unknown) (unknown) Position Sitting (units (unknown) date) unknown) (unknown) (no (unknown) (unknown) Pulse 76 (units (unkno wn) date) unknown) (unknown) (no (unknown) (unknown) Pulse Oximetry (units (unknown) date) (%) 97 unknown) (unknown) (no (unknown) (unknown) Pulse Source [...] (unknown) (unknown) Visit Reasons: (units (unknown) date) BP concerns unknown) (unknown) (no (unknown) (unknown) Vitals (units (unkno wn) date) unknown) (unknown) (no (unknown) (unknown) Weight 174 lb 8 (units (unknown) date) oz unknown) (unknown) (no (unknown) (unknown) albuterol (units (unkn own) date) sulfate 90 unknown) mcg/actuation aerosol inhaler 2 puff inhalation Q4-6H PRN (unknown) (no (unknown) (unknown) alcohol intake: (units (unknown) date) never unknown) (unknown) (no (unknown) (unknown) atorvastatin 40 (units (unknown) date) mg tablet 40 mg unknown) PO HS #90 tabs 01/15/23 [Rx Confirmed 01/21/23] (unknown) (no (unknown) (unknown) calcium (units (unkno wn) date) carbonate 500 unknown) mg-vitamin D3 10 mcg (400 unit) tablet 1 tab PO DAILY (unknown) (no (unknown) (unknown) diazepam 5 mg (units ( unknown) date) tablet 5 mg PO unknown) BID-TID PRN muscle spasm #60 tabs 07/16/22 [Rx (unknown) (no (unknown) (unknown) fluticasone (units (un known) date) propionate 50 unknown) mcg/actuation nasal spray,suspension 1 spray (unknown) (no (unknown) (unknown) gabapentin 300 (units (unknown) date) mg capsule unknown) (Neurontin) 600 mg PO TID #540 caps 05/05/22 [Rx (unknown) (no (unknown) (unknown) grams 12/30/21 (units (unknown) date) [Rx Confirmed unknown) 01/21/23] (unknown) (no (unknown) (unknown) have occurred. (units (unknown) date) If there are any unknown) questions, please contact the Medical Records (unknown) (no (unknown) (unknown) hospital - dizzy (units (unknown) date) since last visit unknown) to er, back of her head hurts, (unknown) (no (unknown) (unknown) intranasal SEE (units (unknown) date) INSTRUCTIONS PRN unknown) allergy symptoms ##1 09/27/20 [Rx Confirmed (unknown) (no (unknown) (unknown) may occur. (units (unk nown) date) Occasional unknown) wrong-word or 'sound-alike' substitutions may have (unknown) (no (unknown) (unknown) mirtazapine 30 (units (unknown) date) mg tablet 30 mg unknown) PO BEDTIME #90 tabs 01/07/23 [Rx Confirmed (unknown) (no (unknown) (unknown) multivitamin 1 (units (unknown) date) tab PO DAILY unknown) 02/21/21 [History Confirmed 01/21/23] (unknown) (no (unknown) (unknown) occurred due to (units (unknown) date) the inherent unknown) limitations of voice recognition software. Please (unknown) (no (unknown) (unknown) read the note (units ( unknown) date) carefully and unknown) recognize, using context, where these substitutions (unknown) (no (unknown) (unknown) shortness of (units (u nknown) date) breath or unknown) wheezing #18 grams 12/29/21 [Rx Confirmed 01/21/23] (unknown) (no (unknown) (unknown) software. (units (unkn own) date) Although every unknown) effort is made to edit content, pattern assembler errors (unknown) (no (unknown) (unknown) substance use (units ( unknown) date) type: does not unknown) use (unknown) (no (unknown) (unknown) the nurse that (units (unknown) date) goes to her house unknown) told her bp was 62/100 and she was to go to (unknown) (no (unknown) (unknown) tizanidine 4 mg [...] rash #30 (unknown) (no (unknown) (unknown) venlafaxine 150 (units (unknown) date) mg unknown) capsule,extended release 24 hr 150 mg PO DAILY #90 caps Result panel 9 (unknown) (no (unknown) (unknown) (no value) (units (unk nown) date) unknown) (unknown) (no (unknown) (unknown) .COMPLEX (units (unkno wn) date) 05/24/20 [History unknown) Confirmed 01/21/23] (unknown) (no (unknown) (unknown) 12/31/22 [Rx (units (u nknown) date) Confirmed unknown) 01/21/23] (unknown) (no (unknown) (unknown) 01/21/23 (units (unkno wn) date) unknown) (unknown) (no (unknown) (unknown) 01/21/23] (units (unkn own) date) unknown) (unknown) (no (unknown) (unknown) 05/24/20 (units (unkno wn) date) [History unknown) Confirmed 01/21/23] (unknown) (no (unknown) (unknown) 16:29 (units (unkno wn) date) unknown) (unknown) (no (unknown) (unknown) [id number] (units (unkno wn) date) unknown) (unknown) (no (unknown) (unknown) Age/Sex: 62 / F (units (unknown) date) Date of Service: unknown) (unknown) (no (unknown) (unknown) Allergies (units (unkn own) date) unknown) (unknown) (no (unknown) (unknown) [place], [place] (units ( unknown) date) [id number] unknown) (unknown) (no (unknown) (unknown) Attending Dr: (units ( unknown) date) Filiberto Vicente MD unknown) (unknown) (no (unknown) (unknown) BMI 28.1 (units (unkno wn) date) unknown) (unknown) (no (unknown) (unknown) BP 114/78 (units (unkn own) date) unknown) (unknown) (no (unknown) (unknown) Blood Pressure (units (unknown) date) Location Lt unknown) brachial (unknown) (no (unknown) (unknown) Breast cancer (units ( unknown) date) (Unknown) unknown) (unknown) (no (unknown) (unknown) Carpal tunnel (units ( unknown) date) syndrome (1981) unknown) (unknown) (no (unknown) (unknown) Chickenpox (units (unk nown) date) (1970) unknown) (unknown) (no (unknown) (unknown) Concerns about (units (unknown) date) low BP. unknown) (unknown) (no (unknown) (unknown) Confirmed (units (unkn own) date) 01/21/23] unknown) (unknown) (no (unknown) (unknown) : 1960 (units (unknown) date) Acct:[id number] unknown) (unknown) (no (unknown) (unknown) Dept at (units (unkno wn) date) . unknown) (unknown) (no (unknown) (unknown) Details: (units (unkno wn) date) unknown) (unknown) (no (unknown) (unknown) Documented By: (units (unknown) date) Filiberto Vicente MD unknown) 01/21/23 1626 (unknown) (no (unknown) (unknown) Draft (units (unkno wn) date) unknown) (unknown) (no (unknown) (unknown) Family History (units (unknown) date) (Reviewed unknown) 06/14/18 @ 15:21 by Forest Poe MD) (unknown) (no (unknown) (unknown) Father (units (unknown) date) Cancer unknown) (unknown) (no (unknown) (unknown) [facility] ([facility]) (unknown) (no (unknown) (unknown) HPI (units (unkno wn) date) unknown) (unknown) (no (unknown) (unknown) Height 5 [...] (unknown) Patient: (units (unkno wn) date) Deysi Henderson unknown) MR#: [id number] (unknown) (no (unknown) (unknown) Penicillins (units (un known) date) [PENICILLINS] unknown) Allergy (Unknown, Verified 01/21/23 16:29) (unknown) (no (unknown) (unknown) Plantar (units (unkno wn) date) fibromatosis unknown) (Unknown) (unknown) (no (unknown) (unknown) Position Sitting (units (unknown) date) unknown) (unknown) (no (unknown) (unknown) Pulse 76 (units (unkno wn) date) unknown) (unknown) (no (unknown) (unknown) Pulse Oximetry (units (unknown) date) (%) 97 unknown) (unknown) (no (unknown) (unknown) Pulse Source [...] (unknown) (unknown) Visit Reasons: (units (unknown) date) BP concerns unknown) (unknown) (no (unknown) (unknown) Vitals (units (unkno wn) date) unknown) (unknown) (no (unknown) (unknown) Weight 174 lb 8 (units (unknown) date) oz unknown) (unknown) (no (unknown) (unknown) albuterol (units (unkn own) date) sulfate 90 unknown) mcg/actuation aerosol inhaler 2 puff inhalation Q4-6H PRN (unknown) (no (unknown) (unknown) alcohol intake: (units (unknown) date) never unknown) (unknown) (no (unknown) (unknown) atorvastatin 40 (units (unknown) date) mg tablet 40 mg unknown) PO HS #90 tabs 01/15/23 [Rx Confirmed 01/21/23] (unknown) (no (unknown) (unknown) calcium (units (unkno wn) date) carbonate 500 unknown) mg-vitamin D3 10 mcg (400 unit) tablet 1 tab PO DAILY (unknown) (no (unknown) (unknown) diazepam 5 mg (units ( unknown) date) tablet 5 mg PO unknown) BID-TID PRN muscle spasm #60 tabs 07/16/22 [Rx (unknown) (no (unknown) (unknown) fluticasone (units (un known) date) propionate 50 unknown) mcg/actuation nasal spray,suspension 1 spray (unknown) (no (unknown) (unknown) gabapentin 300 (units (unknown) date) mg capsule unknown) (Neurontin) 600 mg PO TID #540 caps 05/05/22 [Rx (unknown) (no (unknown) (unknown) grams 12/30/21 (units (unknown) date) [Rx Confirmed unknown) 01/21/23] (unknown) (no (unknown) (unknown) have occurred. (units (unknown) date) If there are any unknown) questions, please contact the Medical Records (unknown) (no (unknown) (unknown) hospital - dizzy (units (unknown) date) since last visit unknown) to er, back of her head hurts, (unknown) (no (unknown) (unknown) intranasal SEE (units (unknown) date) INSTRUCTIONS PRN unknown) allergy symptoms ##1 09/27/20 [Rx Confirmed (unknown) (no (unknown) (unknown) may occur. (units (unk nown) date) Occasional unknown) wrong-word or 'sound-alike' substitutions may have (unknown) (no (unknown) (unknown) mirtazapine 30 (units (unknown) date) mg tablet 30 mg unknown) PO BEDTIME #90 tabs 01/07/23 [Rx Confirmed (unknown) (no (unknown) (unknown) multivitamin 1 (units (unknown) date) tab PO DAILY unknown) 02/21/21 [History Confirmed 01/21/23] (unknown) (no (unknown) (unknown) occurred due to (units (unknown) date) the inherent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 every effort is made unknown) to edit content, pattern assembler errors (unknown) (no (unknown) (unknown) spasm. Discussed (units (unknown) date) nonpharmacological unknown) interventions including ergonomics, heat, (unknown) (no (unknown) (unknown) stretching, and (units (unknown) date) gentle activity. unknown) Will consider a referral to physical therapy (unknown) (no (unknown) (unknown) substance use type: (unit s (unknown) date) does not use unknown) (unknown) (no (unknown) (unknown) that have improved (units (unknown) date) with acupuncture and unknown) supportive care. These symptoms were (unknown) (no (unknown) (unknown) the nurse that goes (unit s (unknown) date) to her house told unknown) her bp was 62/100 and she was to go to (unknown) (no (unknown) (unknown) this clearly does (units (unknown) date) not match her usual unknown) pattern. No clear inciting event, injury, (unknown) (no (unknown) (unknown) tizanidine 4 mg (units (unknown) date) tablet 8 mg PO TID unknown) PRN muscle spasticity #180 tabs 05/05/22 [Rx (unknown) (no (unknown) (unknown) tramadol (units (unkno wn) date) unknown) (unknown) (no (unknown) (unknown) triamcinolone (units ( unknown) date) acetonide 0.1 % unknown) topical cream 1 applic topical BID PRN rash #30 (unknown) (no (unknown) (unknown) venlafaxine 150 mg (units (unknown) date) capsule,extended unknown) release 24 hr 150 mg PO DAILY #90 caps Social History date description facility 2022-12-31 00:00 Current some day smoker [facility] 2023-01-21 00:00 Current some day smoker [facility] Vital Signs date measurement value units 2022-12-31 00:00 BMI 27.9 kg/m2 2022-12-31 00:00 BP_diastolic 90 mmHg 2022-12-31 00:00 BP_systolic 130 mmHg 2022-12-31 00:00 heart_rate 85 /min 2022-12-31 00:00 height_metric 167.64 cm 2022-12-31 00:00 height_standard 66 in 2022-12-31 00:00 o2_saturation 98 % 2022-12-31 00:00 weight_metric 78.61 kg 2022-12-31 00:00 weight_standard 173.31 lb 2023-01-21 00:00 BMI 28.1 kg/m2 2023-01-21 00:00 BP_diastolic 78 mmHg 2023-01-21 00:00 BP_systolic 114 mmHg 2023-01-21 00:00 heart_rate 76 /min 2023-01-21 00:00 height_metric 167.64 cm 2023-01-21 00:00 height_standard 66 in 2023-01-21 00:00 o2_saturation 97 % 2023-01-21 00:00 weight_metric 79.15 kg 2023-01-21 00:00 weight_standard 174.5 lb
[2023-02-27] MEDS ORDERED: LIDOCAINE 1% 2 ML VIAL SUBQ STA (02:26)
--- NOTE | 2023-02-27 02:47 | ED Physician Documentation ---
PD HPI LOWER EXT INJURY - Stated complaint Stated Complaint: LT TOE PX - Chief complaint Chief Complaint: Wound - History obtained from History obtained from: Patient - History of Present Illness PD HPI LOW EXT INJURY LOCATION: Left, Toe (2nd) Type of injury: Other (callus) Where injury occurred: Home Timing - onset: Today Timing - duration: Minutes Timing - details: Abrupt onset, Still present Improved by: Rest Worsened by: Moving, Palpating Associated symptoms: No: Weakness, Numbness, Tingling, Swelling Contributing factors: No: Anticoagulated Similar symptoms before: Diagnosis (callus) Recently seen: Not recently seen - Additional information Additional information: 62-year-old Deysi Mullins has a history of PTSD, irritable bowel syndrome, chronic urinary tract infection and chronic back pain. Today she is coming to the emergency department complaining about a piece of tissue on her left second toe that is painful and she has cut the eschar off and finds a small white nibben of tissue attached to the skin. This is firm and shinny. She is worried it is skin cancer. She has a history of skin cancer and sees the acoustic intelligence specialist. Review of Systems Constitutional: denies: Fever Ears: denies: Ear pain Nose: denies: Congestion Throat: denies: Sore throat Respiratory: denies: Cough GI: denies: Vomiting Skin: reports: Lesions. denies: Rash Musculoskeletal: reports: Back pain (chronic), Extremity pain (left 2nd toe). denies: Neck pain Neurologic: denies: Generalized weakness, Focal weakness, Numbness PD PAST MEDICAL HISTORY - Past Medical History Past Medical History: Yes Cardiovascular: High cholesterol Respiratory: None Neuro: None Endocrine/Autoimmune: None GI: Chronic diarrhea, Chronic constipation LEGAL LIBRARIAN: Other : Chronic bladder infection HEENT: None Psych: Anxiety, Panic attacks, Post traumatic stress disorder Musculoskeletal: Chronic back pain Derm: Eczema - Past Surgical History Past Surgical History: Yes General: Colonoscopy, EGD Ortho: Rotator cuff repair, Carpal Tunnel surgery /LEGAL LIBRARIAN: Tubal ligation HEENT: Tonsil/Adenoidectomy - Present Medications Home Medications: Ambulatory Orders Medication Instructions Recorded Confirmed Simvastatin 20 mg PO QPM 07/15/13 12/22/22 Fluticasone [Flonase] 1 spray INH DAILY 02/13/16 12/22/22 Bacillus Coagulans [Probiotic] 1 each PO DAILY 06/16/16 12/22/22 Wheat Dextrin [Benefiber] 1 each PO DAILY 06/16/16 12/22/22 Gabapentin 300 mg PO TID 06/20/17 12/22/22 Tizanidine HCl 4 mg PO DAILY PRN 06/20/17 12/22/22 Albuterol Sulf [Ventolin Hfa 1 - 2 puffs INH Q4HR PRN #1 inhaler 11/13/17 12/22/22 Inhaler] diazePAM [Diazepam] 5 mg PO DAILY 11/13/17 12/22/22 Fexofenadine HCl 180 mg PO BID 12/22/22 12/22/22 - Allergies Allergies/Adverse Reactions: Allergies Allergy/AdvReac Type Severity Reaction Status Date / Time Penicillins Allergy Severe Hives Verified 12/22/22 18:28 - Social History Does the pt smoke?: Yes Smoking Status: Current every day smoker Does the pt drink ETOH?: No Does the pt have substance abuse?: No - Immunizations Immunizations are current?: Yes - POLST Patient has POLST: No PD ED PE NORMAL - Vitals Vital signs reviewed: Yes (hypertensive mild ) - General General: Alert and oriented X 3, No acute distress, Well developed/nourished - HEENT HEENT: Atraumatic, PERRL, EOMI - Respiratory Respiratory: No respiratory distress - Derm Derm: Normal color, Warm and dry, No rash - Extremities Extremities: No deformity, No edema, Other (On the plantar surface of the left second toe there is a triangular shaped piece of skin that has been torn away from the underlying skin and on the backside of the skin there is a tiny 1 mm round white mass that is firm. ) - Neuro Neuro: Alert and oriented X 3, engineer soils 2-12 intact, No motor deficit, No sensory deficit, Normal speech Eye Opening: Spontaneous Motor: Obeys Commands Verbal: Oriented GCS Score: 15 - Psych Psych: Normal mood, Normal affect Results - Vitals Vitals: Vital Signs - 24 hr 02/27/23 00:53 Temperature 36.9 C Heart Rate 87 Respiratory 18 Rate Blood Pressure 134/91 H O2 Saturation 100 Oxygen O2 Source Room air Procedures - General procedure General procedure: Removal of abnormal section of avulsed skin: The toe was cleansed with Hibiclens infiltrated with 1% lidocaine and a scissor was used to remove a 3 mm section of the triangular escaped skin with a 1 mm ball of tissue on the inside surface. PD Medical Decision Making - ED course Complexity details: reviewed old records, d/w patient ED course: 62-year-old female with a chief complaint of severe pain to her left second toe associated with removal of a callus. Her biggest concern is whether this mass under the skin is another cancer. I initially looked at this and told the patient this was a piece of subcutaneous fat attached to the skin. After I have removed this appears there is a firm nodule of tissue and I have sent this for pathology. I was reluctant to send this for pathology as the patient does seems histrionic at times and the entire process looked benign. Departure - Departure Disposition: 01 Home, Self Care Clinical Impression: Callus of toe Condition: Stable Instructions: Corns Calluses Tx Follow-Up: Your, acoustic intelligence specialist [Other] Comments: Deysi, today this small piece of skin that we have removed looks benign but we have sent it off for pathology at your request. Follow-up with your acoustic intelligence specialist for results.
[2023-02-27 03:41] VITALS: BP 125/86
== END 2023-02-27 03:40 | disposition home or self-care (01) ==
LOC: ED 00:44
DX: L84 Corns and callosities (principal); F17.200 Nicotine dependence, unspecified, uncomplicated
CPT/HCPCS: 11420; 99283

== ENCOUNTER 2023-06-22 15:24 | Outpatient (CLI) | payer MEDICARE, MEDICAID | END 2023-06-22 23:59 | disposition critical access hospital (66) | LOC: EMS 15:24 | DX: R10.11 Right upper quadrant pain (principal); R10.811 Right upper quadrant abdominal tenderness | CPT/HCPCS: A0425; A0429 ==

== ENCOUNTER 2023-06-22 15:47 | Emergency (ER) | payer MEDICARE, MEDICAID ==
[2023-06-22] MEDS ORDERED: SODIUM CHLORIDE 0.9% 1,000 ML IV STA (15:56)
[2023-06-22] MEDS ORDERED: HYDROmorphone 1 MG/ML CARPUJECT IVP STA (15:58)
[2023-06-22] MEDS ORDERED: ONDANSETRON 4 MG/2 ML VIAL IVP STA ×2 (15:58→19:01)
[2023-06-22 16:08] LABS: BILIRUBIN,URINE NEGATIVE (NEGATIVE); GLUCOSE, URINE (UA) NEGATIVE (NEGATIVE); KETONES,URINE (UA) NEGATIVE (NEGATIVE); LEUKOCYTE ESTERASE, URINE NEGATIVE (NEGATIVE); NITRITE,URINE NEGATIVE (NEGATIVE); OCCULT BLOOD,URINE TRACE-LYSE (NEGATIVE); PROTEIN,URINE NEGATIVE (NEGATIVE); UROBILINOGEN,URINE 0.2 (NORMAL) E.U./dL (NORMAL)
[2023-06-22 16:09] LABS: CLARITY,URINE CLEAR (CLEAR)
[2023-06-22 16:15] LABS: BASOPHILS # (AUTO) 0.1 10^3/uL (0.0-0.1); BASOPHILS % (AUTO) 0.6 %; EOSINOPHILS # (AUTO) 0.1 10^3/uL (0.0-0.7); EOSINOPHILS % (AUTO) 0.9 %; HCT - HEMATOCRIT 44.2 % (37.0-47.0); HGB - HEMOGLOBIN 14.5 g/dL (12.0-16.0); LYMPHOCYTES # (AUTO) 2.2 10^3/uL (1.5-3.5); MEAN CORPUSCULAR HEMOGLOBIN 29.8 pg (27.0-31.0); MEAN CORPUSCULAR HGB CONC 32.8 g/dL (32.0-36.0); MEAN CORPUSCULAR VOLUME 90.8 fL (81.0-99.0); MEAN PLATELET VOLUME 10.8 fL (7.9-10.8); MONOCYTES # (AUTO) 0.7 10^3/uL (0.0-1.0); MONOCYTES % (AUTO) 6.8 %; NEUTROPHILS # (AUTO) 7.3 10^3/uL (1.5-6.6); NEUTROPHILS % (AUTO) 70.4 %; PLT - PLATELET COUNT 225 10^3/uL (130-450); RED BLOOD COUNT 4.87 10^6/uL (4.20-5.40); RED CELL DISTRIBUTION WIDTH 13.9 % (12.0-15.0); WHITE BLOOD COUNT 10.3 x10^3/uL (4.8-10.8)
--- NOTE | 2023-06-22 16:21 | ED Physician Documentation ---
History of Present Illness - Stated complaint Stated Complaint: RUQ PX - Chief complaint Chief Complaint: Abd Pain - Additonal information Additional information: 62-year-old female presents emergency department for evaluation of acute mid r ight abdominal pain that woke her from sleep at 1230. She describes it as sharp and radiating towards her back. She has had some nausea and vomiting. No diarrhea. No melena or hematochezia. No dysuria or urinary symptoms. She believes it is probably her gallbladder. Past surgical history most significant for tubal ligation only. She retains her organs otherwise. 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: Other : Chronic bladder infection HEENT: None Psych: Anxiety, Panic attacks, Post traumatic stress disorder Musculoskeletal: Chronic back pain Derm: Eczema - Past Surgical History Past Surgical History: Yes General: Colonoscopy, EGD Ortho: Rotator cuff repair, Carpal Tunnel surgery /LINER REPLACER: Tubal ligation HEENT: Tonsil/Adenoidectomy - Present Medications Home Medications: Ambulatory Orders Medication Instructions Recorded Confirmed Fluticasone [Flonase] 1 spray INH DAILY 02/13/16 06/22/23 Bacillus Coagulans [Probiotic] 1 each PO DAILY 06/16/16 06/22/23 Gabapentin 300 mg PO BID 06/20/17 06/22/23 Albuterol Sulf [Ventolin Hfa 1 - 2 puffs INH Q4HR PRN #1 inhaler 11/13/17 06/22/23 Inhaler] diazePAM [Diazepam] 5 mg PO DAILY 11/13/17 06/22/23 Fexofenadine HCl 180 mg PO BID 12/22/22 06/22/23 Atorvastatin Calcium 40 mg PO HS 06/22/23 06/22/23 Mirtazapine 30 mg PO HS 06/22/23 06/22/23 Ondansetron Odt [Zofran Odt] 4 mg TL Q6H PRN 06/22/23 06/22/23 Sulfamethox/Trimeth 800/160 1 tablet PO BID 06/22/23 06/22/23 [Bactrim Ds] Venlafaxine ER [Effexor ER] 75 mg PO DAILY 06/22/23 06/22/23 - Allergies Allergies/Adverse Reactions: Allergies Allergy/AdvReac Type Severity Reaction Status Date / Time Penicillins Allergy Severe Hives Verified 12/22/22 18:28 - Social History Does the pt smoke?: Yes Smoking Status: Current every day smoker Does the pt drink ETOH?: No Does the pt have substance abuse?: No - Immunizations Immunizations are current?: Yes - POLST Patient has POLST: No PD ED PE NORMAL - General General: Alert and oriented X 3, No acute distress, Well developed/nourished - HEENT HEENT: Atraumatic, Moist mucous membranes - Neck Neck: Supple, no meningeal sign - Cardiac Cardiac: RRR, No murmur - Respiratory Respiratory: No respiratory distress, Clear bilaterally - Abdomen Abdomen: Normal bowel sounds, Soft, Non tender (Focal tenderness with guarding and rebound in the mid flank. No CVA tenderness noted. No tenderness elicited on the left side of the abdomen or right lower quadrant.) - Back Back: No CVA TTP - Derm Derm: Normal color, Warm and dry, No rash - Extremities Extremities: No deformity - Neuro Neuro: Alert and oriented X 3 Eye Opening: Spontaneous Motor: Obeys Commands Verbal: Oriented GCS Score: 15 Results - Vitals Vitals: Vital Signs - 24 hr 06/22/23 06/22/23 06/22/23 15:53 16:16 17:22 Temperature 36.3 C L Heart Rate 59 L 57 L 58 L Respiratory 15 18 18 Rate Blood Pressure 145/65 H 145/64 H 118/60 O2 Saturation 100 100 100 06/22/23 18:56 Temperature 36.1 C L Heart Rate 51 L Respiratory 16 Rate Blood Pressure 127/70 O2 Saturation 100 Oxygen O2 Source Room air - Labs Labs: Laboratory Tests 06/22/23 06/22/23 06/22/23 15:58 16:05 16:05 WBC 10.3 RBC 4.87 Hgb 14.5 Hct 44.2 MCV 90.8 MCH 29.8 MCHC 32.8 RDW 13.9 Plt Count 225 MPV 10.8 Neut # (Auto) 7.3 H Lymph # (Auto) 2.2 Ritchie # (Auto) 0.7 Eos # (Auto) 0.1 Baso # (Auto) 0.1 Absolute Nucleated RBC 0.00 Nucleated RBC % 0.0 Sodium 139 Potassium 3.1 L Chloride 108 Carbon Dioxide 25 Anion Gap 6.0 BUN 13 Creatinine 1.0 Estimated GFR (MDRD) 56 L Glucose 100 Calcium 8.5 Total Bilirubin 0.8 AST 18 ALT 14 Alkaline Phosphatase 120 Total Protein 7.3 Albumin 4.0 Globulin 3.3 Albumin/Globulin Ratio 1.2 Lipase 42 Urine Color YELLOW Urine Clarity CLEAR Urine pH 6.0 Ur Specific [place] 1.010 Urine Protein NEGATIVE Urine Glucose (UA) NEGATIVE Urine Ketones NEGATIVE Urine Occult Blood TRACE-LYSE Urine Nitrite NEGATIVE Urine Bilirubin NEGATIVE Urine Urobilinogen 0.2 (NORMAL) Ur Leukocyte Esterase NEGATIVE Ur Microscopic Review NOT INDICATED Urine Culture Comments NOT INDICATED - Rads (name of study) abd US limited Relevant Findings:: Other (Per neurodiagnostic technologist: Normal liver. CBD is not distended. Gallbladder wall normal thickness. No obvious stones secondary findings suggest acute cholecystitis) CT abd/pelvis Relevant Findings:: Final report received (No acute intra-abdominal or pelvic process.) PD Medical Decision Making - ED course Complexity details: reviewed results, re-evaluated patient, d/w patient ED course: 62-year-old female presents to the emergency department for evaluation of acute right lateral rib pain that radiates across her back. She denies falls or trauma. There has been no fevers. She presented to the emergency department believing that she had acute cholecystitis as she had vomited. On exam she initially appeared quite uncomfortable and had difficulty standing fully upright. Tenderness was elicited with palpation of the right posterior rib wall. Her vital signs were without fever, tachycardia or hypotension. I did obtain CBC and electrolytes and per my interpretation no acute worrisome findings were seen. I am subsequently an abdominal ultrasound was obtained which showed no findings to suggest acute gallbladder disease. CT of the abdomen was also negative for findings of renal or ureter colic, acute appendicitis, bowel obstruction or obvious rib fractures. Unlikely PE by Wells criteria Initially the patient was given a milligram of Dilaudid and Zofran which she felt did not improve her pain. Subsequently she was given a single dose of Toradol which she states helped. She has been persistently nauseated. A prescription for some Zofran is going to be sent to her preferred pharmacy. I am I suspect that the cause of her pain is likely a rib strain from coughing in the setting of COPD. I have discussed the CT imaging and laboratory findings with the patient. She is discharged home with recommendation to continue Tylenol, Motrin and her tramadol that she already has at home. The usual emergent return precautions were discussed for concerns of worsening symptoms. Departure - Departure Disposition: Home, Self Care Clinical Impression: Rib pain on right side Condition: Stable Record reviewed to determine appropriate education?: Yes Comments: As discussed at the bedside your labs, ultrasound and CT imaging today were all essentially normal without any abnormal findings noted. It is possible that you strained or pulled one of your ribs with coughing. In the interim I recommend that you take Tylenol and ibuprofen [id number] for discomfort. You can use your tramadol as needed for worsening pain. With most simple rib strains I would expect your symptoms to be getting better over the next several days. If at any point you find your symptoms are worsening, you have difficulty breathing, any bloody sputum or develop high fevers then please return immediately to the ER for repeat evaluation. Forms: PCP List
[2023-06-22 16:26] LABS: ALBUMIN/GLOBULIN RATIO 1.2 (1.0-2.2); BILIRUBIN,TOTAL 0.8 mg/dL (0.2-1.0); CALCIUM 8.5 mg/dL (8.5-10.3); POTASSIUM 3.1 mmol/L (3.5-5.0); TOTAL PROTEIN 7.3 g/dL (6.7-8.2)
--- OUTSIDE RECORDS SUMMARY | 2023-06-22 16:32 | EXTERNAL MEDICAL SUMMARY RPT | Continuity of Care Document ---
Author Name Unknown Address [address] [place] [address] Phone Organization [facility] Address [address] [place] [address] Phone Care Team Providers Care Tap Dancer Name Role Phone Filiberto Vicente Unavailable Unavailable Allergies and Intolerances date description facility reaction [facility] (no [facility] (no s ever[facility] Medications date description facility 2023-06-14 00:00 Ondansetron Hcl [facility] 2023-06-21 00:00 Sulfamethoxazole-Trimethoprim [facility] 2023-05-27 00:00 Venlafaxine [facility] 2023-04-05 00:00 Mirtazapine [facility] 2023-06-14 00:00 Tramadol [facility] Problems date description facility 2023-03-25 00:00 Patient left without being seen [facility] 2023-04-07 15:01 Palpitations [facility] 2023-04-07 15:01 Syncope and collapse [facility] 2023-05-18 12:57 Other chronic pain [facility] 2023-05-18 12:57 Cervicalgia [facility] 2023-05-18 12:57 Dorsalgia, unspecified [facility] 2023-05-18 14:51 Other chronic pain [facility] 2023-05-18 14:51 Cervicalgia [facility] 2023-05-18 14:51 Dorsalgia, unspecified [facility] 2023-05-27 00:00 Dizziness [facility] 2023-06-14 00:00 Vomiting [facility] 2023-06-14 16:21 Dizziness and giddiness [facility] 2023-06-15 14:39 Dizziness [facility] 2023-06-15 14:39 Abnormal levels of other serum enzymes [facility] 2023-06-18 11:26 Dizziness [facility] 2023-06-18 11:26 Abnormal levels of other serum enzymes [facility] 2023-06-21 00:00 Cellulitis of neck [facility] 2023-06-21 00:00 Increased serum lipase level [facility] Procedures date description facility 2023-03-25 00:00 X-ray of chest, single view [facility] 2023-06-21 00:00 X-ray of chest, single view [facility] 2023-05-18 00:00 X-ray of cervical spine, two [facility] Results/Labs test date facility value unit notes Social History date description facility 2023-03-25 00:00 Current some day smoker [facility] 2023-03-31 00:00 Current some day smoker [facility] 2023-05-17 00:00 Current some day smoker [facility] 2023-05-27 00:00 Current some day smoker [facility] 2023-06-14 00:00 Current some day smoker [facility] 2023-06-21 00:00 Ex-smoker (finding) [facility] Vital Signs date measurement value units 2023-03-25 00:00 BMI 27.9 kg/m2 2023-03-25 00:00 BP_diastolic 80 mmHg 2023-03-25 00:00 BP_systolic 128 mmHg 2023-03-25 00:00 heart_rate 58 /min 2023-03-25 00:00 height_metric 167.64 cm 2023-03-25 00:00 height_standard 66 in 2023-03-25 00:00 o2_saturation 98 % 2023-03-25 00:00 respiration_rate 18 /min 2023-03-25 00:00 temperature_metric 36.61 C 2023-03-25 00:00 temperature_standard 97.9 F 2023-03-25 00:00 weight_metric 78.47 kg 2023-03-25 00:00 weight_standard 173 lb 2023-03-31 00:00 BMI 28.5 kg/m2 2023-03-31 00:00 BP_diastolic 78 mmHg 2023-03-31 00:00 BP_systolic 110 mmHg 2023-03-31 00:00 heart_rate 80 /min 2023-03-31 00:00 height_metric 167.64 cm 2023-03-31 00:00 height_standard 66 in 2023-03-31 00:00 o2_saturation 98 % 2023-03-31 00:00 weight_metric 80.34 kg 2023-03-31 00:00 weight_standard 177.12 lb 2023-05-17 00:00 BMI 28.6 kg/m2 2023-05-17 00:00 BP_diastolic 76 mmHg 2023-05-17 00:00 BP_systolic 120 mmHg 2023-05-17 00:00 heart_rate 73 /min 2023-05-17 00:00 height_metric 167.64 cm 2023-05-17 00:00 height_standard 66 in 2023-05-17 00:00 o2_saturation 98 % 2023-05-17 00:00 weight_metric 80.51 kg 2023-05-17 00:00 weight_standard 177.49 lb 2023-06-14 00:00 BMI 28.4 kg/m2 2023-06-14 00:00 BP_diastolic 76 mmHg 2023-06-14 00:00 BP_systolic 108 mmHg 2023-06-14 00:00 heart_rate 74 /min 2023-06-14 00:00 height_metric 167.64 cm 2023-06-14 00:00 height_standard 66 in 2023-06-14 00:00 o2_saturation 99 % 2023-06-14 00:00 temperature_metric 35.83 C 2023-06-14 00:00 temperature_standard 96.5 F 2023-06-14 00:00 weight_metric 79.83 kg 2023-06-14 00:00 weight_standard 176 lb 2023-06-20 00:00 BMI 189.7 kg/m2 2023-06-20 00:00 height_metric 167.64 cm 2023-06-20 00:00 height_standard 66 in 2023-06-20 00:00 temperature_metric 36.28 C 2023-06-20 00:00 temperature_standard 97.3 F 2023-06-20 00:00 weight_metric 533.42 kg 2023-06-20 00:00 weight_standard 1175.99 lb 2023-06-21 00:00 BP_diastolic 72 mmHg 2023-06-21 00:00 BP_systolic 133 mmHg 2023-06-21 00:00 heart_rate 53 /min 2023-06-21 00:00 o2_saturation 98 % 2023-06-21 00:00 respiration_rate 16 /min
--- NOTE | 2023-06-22 18:12 | Ultrasound Report ---
PROCEDURE: Abdomen Limited INDICATIONS: RUQ abd pain TECHNIQUE: Real-time focused scanning was performed of the abdomen, with image documentation. COMPARISONS: CT abdomen pelvis 12/02/2020 FINDINGS: Liver: Liver is normal in size and homogeneous in echotexture. Gallbladder: No stones. Wall thickness is normal measuring 3 mm. Biliary ducts: Intrahepatic bile ducts are non-dilated. Extrahepatic bile duct caliber measures 3 m m. Normal is 6-7 mm or less in diameter, or 10 mm or less post-cholecystectomy. Pancreas: Visualized portions of the pancreas are sonographically normal. Right kidney: Normal in size and echotexture. Right kidney measures 12.2 cm long. No hydronephrosis or nephrolithiasis. No solid masses. No complex renal cystic lesions which require follow-up. Aorta: Visualized aorta is normal in caliber at less than 3 cm. IVC: Intrahepatic inferior vena cava is patent. Miscellaneous: No free abdominal fluid. IMPRESSION: Bladder is unremarkable. Reviewed by: Kaylie Mulligan MD on 06/22/2023 6:11 PM PDT Approved by: Kaylie Mulligan MD on 06/22/2023 6:11 PM PDT Station ID: [id number]
[2023-06-22] MEDS ORDERED: iohexoL-300 100 ML VIAL IVP ONE (18:28)
--- NOTE | 2023-06-22 18:51 | CT Report ---
PROCEDURE: ABDOMEN/PELVIS W INDICATIONS: RUQ/Right flank pain CONTRAST: 100mL Omni 300 TECHNIQUE: After the administration of IV contrast, 5 mm thick sections acquired from the diaphragms to the symp hysis. 5 mm thick coronal and sagittal reformats were acquired. For radiation dose reduction, the f ollowing was used: automated exposure control, adjustment of mA and/or kV according to patient size. COMPARISON: CT abdomen pelvis 12/02/2020 FINDINGS: Image quality: Excellent. Lung bases and heart: Unremarkable. Liver: No solid mass. Hepatic steatosis. Gallbladder and biliary tree: Unremarkable. Spleen: No splenomegaly. Pancreas: No pancreatic ductal dilation. Adrenals: No adrenal nodule. Kidneys and ureters: No hydronephrosis. No renal cystic lesion which requires follow up. No solid mas s. Bowel and peritoneum: No bowel distension. No pathologic free fluid. Mild hiatal hernia. Appendix is normal. Lymph nodes: No central or retroperitoneal adenopathy. Vessels: No infrarenal aortic aneurysm. PELVIS Reproductive organs: Unremarkable. Bladder: No abnormal wall thickening, accounting for underdistension. Pelvic lymph nodes: No pelvic adenopathy by size criteria. Bones: No aggressive osseous abnormality. Other: No significant ventral or inguinal hernia. IMPRESSION: No acute intra-abdominal or pelvic process. Reviewed by: Kaylie Mulligan MD on 06/22/2023 6:50 PM PDT Approved by: Kaylie Mulligan MD on 06/22/2023 6:50 PM PDT Station ID: [id number]
[2023-06-22] MEDS ORDERED: KETOROLAC 30 MG/ML VIAL IVP STA (19:01)
[2023-06-22 19:56] VITALS: BP 110/57
== END 2023-06-22 20:01 | disposition home or self-care (01) ==
LOC: EDUNIT# → ED 15:47
DX: R10.11 Right upper quadrant pain (principal); F17.200 Nicotine dependence, unspecified, uncomplicated
CPT/HCPCS: 36415; 74177; 76705; 80053; 81003; 83690; 85025; 96374; 96375; 99284; J1170; Q9967; 81001; 87086